=== PATIENT | female | born 1975 | race Caucasian/White ===

== ENCOUNTER 2017-10-10 11:38 | Observation (INO) | payer BC ==
[2017-10-10] MEDS ORDERED: Acetaminophen 325 MG Tab PO ONE (12:54)
[2017-10-10] MEDS ORDERED: Ondansetron 4 MG/2 ML SDV IVPUSH ONE (12:54)
[2017-10-10] MEDS ORDERED: methylPREDNISolone Sodium Succinate 125 MG/2 ML SDV IVPUSH ONE (13:02)
[2017-10-10] MEDS ORDERED: Sodium Chloride 0.9% 10 ML Syringe FLUSH PRN (13:13)
--- NOTE | 2017-10-10 13:13 | EDM.PDOC ---
ED HPI GENERAL MEDICAL PROBLEM - General Chief Complaint: Diabetic Complaint Stated Complaint: DIABETIC/VOMTING Time Seen by Provider: 10/10/17 12:35 Source of Information: Reports: Patient History Limitations: Reports: No Limitations - History of Present Illness INITIAL COMMENTS - FREE TEXT/NARRATIVE: Patient is a 41 y/o female who presents to the E.D. c/o n/v and diarrhea since midnight. She has vomited multiple times. Unable to keep any fluids down. She has a history of DM II and addisons disease. She has administered dexamethasone 4 mg IM around 0945. Feels she is in a venkat crisis. Was informed to come to the E.D. if she ever gets like this for stress dose steroids and IVF's. Cortef 20 mg qam, cortef 10mg daily, hydrocortisone 0.5 tab by mouth as when necessary, Florinef 0.1 mg by mouth daily, lisinopril 2.5 mg daily, Synthroid 175 g by mouth daily, dexamethasone 4 mg IM when necessary , Lantus 30 units subcutaneous daily, the trulicity 1.5 mg IM weekly. She has not checked her blood sugar this a.m. Has fever of 100.4. Mild body aches, headache, and abdominal discomfort with vomiting. Denies stiff neck, vision changes, chestpain, sob, dysuria, rash, or any additional complaints. Headache Pain Score (Numeric/FACES): 3 - Related Data Allergies Allergy/AdvReac Type Severity Reaction Status Date / Time No Known Allergies Allergy Verified 10/10/17 18:16 Home Meds: Home Meds Levothyroxine Sodium [Synthroid] 175 mcg PO DAILY 11/18/15 [History] Fludrocortisone [Florinef] 0.1 mg PO DAILY #30 tablet 11/20/15 [Rx] Dexamethasone 4 mg IM ASDIRECTED PRN 10/10/17 [History] Dulaglutide [Trulicity] 1.5 mg IM WEEKLY 10/10/17 [History] Hydrocortisone 0.5 tab PO ASDIRECTED PRN 10/10/17 [History] Hydrocortisone [Cortef] 1 tab PO DAILY 10/10/17 [History] Hydrocortisone [Cortef] 2 tab PO QAM 10/10/17 [History] Insulin Glarg,Human.Rec.Analog [Lantus] 30 units SUBCUT DAILY 10/10/17 [History] Lisinopril 2.5 mg PO DAILY 10/10/17 [History] Past Medical History Endocrine/Metabolic History: Reports: [place]'s Disease, Diabetes, Type II, Hypothyroidism, IDDM - Infectious Disease History Infectious Disease History: Reports: Chicken Pox, Influenza - Past Surgical History GI Surgical History: Reports: Appendectomy, Cholecystectomy Social & Family History - Family History Family Medical History: Noncontributory - Tobacco Use Smoking Status *Q: Former Smoker Years of Tobacco use: 20 Packs/Tins Daily: 1 Used Tobacco, but Quit: Yes Month/Year Tobacco Last Used: 3 years ago - Caffeine Use Caffeine Use: Reports: Coffee, Soda - Recreational Drug Use Recreational Drug Use: No ED ROS GENERAL - Review of Systems Review Of Systems: ROS reveals no pertinent complaints other than HPI. ED EXAM GENERAL NO PERIP PULSE - Physical Exam Exam: See Below Exam Limited By: No Limitations General Appearance: Alert, WD/WN, Moderate Distress Eye Exam: Bilateral Eye: Normal Inspection, PERRL Ears: Hearing Grossly Normal Nose: Normal Inspection Throat/Mouth: Normal Inspection, Normal Oropharynx, Normal Voice, No Airway Compromise Head: Atraumatic, Normocephalic Neck: Normal Inspection, Supple Respiratory/Chest: No Respiratory Distress, Lungs Clear, Normal Breath Sounds, No Accessory Muscle Use, Chest Non-Tender Cardiovascular: Normal Peripheral Pulses, Tachycardia GI/Abdominal: Normal Bowel Sounds, Soft, No Organomegaly, No Distention, Tender (generalized, mild, per patient 2ndto n/v. ) Back Exam: Normal Inspection. No: CVA Tenderness (L), CVA Tenderness (R) Extremities: Normal Inspection, Normal Range of Motion, Non-Tender, No Pedal Edema, Normal Capillary Refill Neurological: Alert, Oriented, CN II-XII Intact, Normal Cognition, No Motor/ Sensory Deficits Psychiatric: Normal Affect, Normal Mood Skin Exam: Warm, Dry, Intact, Normal Color Course - Vital Signs Last Recorded V/S: Last Vital Signs Temp 98.2 F 10/11/17 15:22 Pulse 91 10/11/17 15:22 Resp 16 10/11/17 15:22 BP 123/74 10/11/17 15:22 Pulse Ox 95 10/11/17 15:22 - Orders/Labs/Meds Orders: Medication Orders Acetaminophen (Tylenol) 650 mg PO Q6H PRN PRN Reason: Pain/Fever Albuterol (Proventil Neb Soln) 2.5 mg NEB Q4HRRT PRN PRN Reason: Shortness of Breath Albuterol/Ipratropium (Duoneb 3.0-0.5 Mg/3 Ml) 3 ml NEB QID PRN PRN Reason: sob Dextrose/Water (Dextrose 50% In Water) 50 ml IVPUSH ASDIRECTED PRN PRN Reason: Hypoglycemia Fludrocortisone Acetate (Florinef) 0.1 mg PO DAILY [facility] Hydrocortisone Sodium Succinate (Solu-Cortef) 100 mg IVPUSH Q8H [facility] Last Admin: 10/11/17 20:23 Dose: 100 mg Admin: 10/11/17 12:56 Dose: 100 mg Admin: 10/11/17 04:06 Dose: 100 mg Admin: 10/10/17 20:36 Dose: 100 mg Insulin Aspart (Novolog) 0 unit SUBCUT QIDACANDBED [facility]; Protocol Last Admin: 10/11/17 17:50 Dose: 4 unit Admin: 10/11/17 12:55 Dose: 2 unit Admin: 10/11/17 08:19 Dose: 2 unit Admin: 10/10/17 22:46 Dose: 4 unit Levothyroxine Sodium (Synthroid) 175 mcg PO ACBREAKFAST [facility] Last Admin: 10/11/17 06:35 Dose: 175 mcg Lisinopril (Prinivil) 2.5 mg PO DAILY [facility] Ondansetron HCl (Zofran) 4 mg IVPUSH Q8H PRN PRN Reason: Nausea/Vomiting Pantoprazole Sodium (Protonix Iv) 40 mg IVPUSH Q12H [facility] Last Admin: 10/11/17 20:22 Dose: 40 mg Admin: 10/11/17 08:20 Dose: 40 mg Admin: 10/10/17 20:37 Dose: 40 mg Sodium Chloride (Saline Flush) 10 ml FLUSH ASDIRECTED PRN PRN Reason: Keep Vein Open Last Admin: 10/10/17 13:25 Dose: 10 ml Labs: Laboratory Tests 10/10/17 10/10/17 10/10/17 Range/Units 13:40 13:40 13:40 WBC 9.44 (3.98-10.04) K/mm3 RBC 5.17 (3.98-5.22) M/mm3 Hgb 14.4 (11.2-15.7) gm/L Hct 42.1 (34.1-44.9) % MCV 81.4 (79.4-94.8) fl MCH 27.9 (25.6-32.2) pg MCHC 34.2 (32.2-35.5) g/dl RDW Std Deviation 38.2 (36.4-46.3) fL Plt Count 242 (182-369) K/mm3 MPV 10.7 (9.4-12.3) fl Neutrophils % (Manual) 80 H (40-60) % Band Neutrophils % 1 (0-10) % Lymphocytes % (Manual) 18 L (20-40) % Atypical Lymphs % 0 % Monocytes % (Manual) 1 L (2-10) % Eosinophils % (Manual) 0 L (0.7-5.8) % Basophils % (Manual) 0 L (0.1-1.2) Platelet Estimate Adequate RBC Morph Comment Normal Sodium 141 (136-145) mEq/L Potassium 3.7 (3.5-5.1) mEq/L Chloride 105 (98-107) mEq/L Carbon Dioxide 25 (21-32) mEq/L Anion Gap 14.7 (5-15) BUN 13 (7-18) mg/dL Creatinine 1.0 (0.55-1.02) mg/dL Est Cr Clr Drug Dosing 65.22 mL/min Estimated GFR (MDRD) > 60 (>60) mL/min BUN/Creatinine Ratio 13.0 L (14-18) Glucose 173 H (74-106) mg/dL Calcium 8.1 L (8.5-10.1) mg/dL Total Bilirubin 0.7 (0.2-1.0) mg/dL AST 23 (15-37) U/L ALT 19 (14-59) U/L Alkaline Phosphatase 143 H (46-116) U/L Total Protein 6.7 (6.4-8.2) g/dl Albumin 3.2 L (3.4-5.0) g/dl Globulin 3.5 gm/dL Albumin/Globulin Ratio 0.9 L (1-2) Mycoplasma pneumon IgM Negative (NEGATIVE) Meds: Medications Generic Name Dose Route Start Last Admin Trade Name Freq PRN Reason Stop Dose Admin Acetaminophen 650 mg 10/10/17 19:42 Tylenol PO Q6H PRN Pain/Fever Albuterol 2.5 mg 10/11/17 07:47 Proventil Neb Soln NEB Q4HRRT PRN Shortness of Breath Albuterol/Ipratropium 3 ml 10/11/17 07:46 Duoneb 3.0-0.5 Mg/3 Ml NEB QID PRN sob Dextrose/Water 50 ml 10/10/17 19:35 Dextrose 50% In Water IVPUSH ASDIRECTED PRN Hypoglycemia Fludrocortisone Acetate 0.1 mg 10/12/17 09:00 Florinef PO DAILY [facility] Hydrocortisone Sodium Succinate 100 mg 10/10/17 20:00 10/11/17 20:23 Solu-Cortef IVPUSH 100 mg Q8H [facility] Administration Insulin Aspart 0 unit 10/10/17 22:00 10/11/17 17:50 Novolog SUBCUT 4 unit QIDACANDBED [facility] Administration Protocol Levothyroxine Sodium 175 mcg 10/11/17 06:00 10/11/17 06:35 Synthroid PO 175 mcg ACBREAKFAST [facility] Administration Lisinopril 2.5 mg 10/12/17 09:00 Prinivil PO DAILY [facility] Ondansetron HCl 4 mg 10/10/17 19:39 Zofran IVPUSH Q8H PRN Nausea/Vomiting Pantoprazole Sodium 40 mg 10/10/17 20:00 10/11/17 20:22 Protonix Iv IVPUSH 40 mg Q12H [facility] Administration Sodium Chloride 10 ml 10/10/17 13:13 10/10/17 13:25 Saline Flush FLUSH 10 ml ASDIRECTED PRN Administration Keep Vein Open Discontinued Medications Generic Name Dose Route Start Last Admin Trade Name Freq PRN Reason Stop Dose Admin Acetaminophen 975 mg 10/10/17 12:54 10/10/17 14:04 Tylenol PO 10/10/17 12:55 975 mg NOW ONE Administration Azithromycin 500 mg 10/11/17 07:45 Zithromax IV Q24H [facility] Sodium Chloride 2,000 mls @ 999 mls/hr 10/10/17 12:50 10/10/17 14:48 Normal Saline IV 10/10/17 14:50 999 mls/hr ONETIME ONE Administration Sodium Chloride 1,000 mls @ 999 mls/hr 10/10/17 20:00 10/10/17 22:44 Normal Saline IV 10/11/17 21:01 999 mls/hr ASDIRECTED [facility] Administration Sodium Chloride 1,000 mls @ 100 mls/hr 10/10/17 22:00 10/11/17 00:03 Normal Saline IV 100 mls/hr TITRATE [facility] Administration Azithromycin 500 mg/ Sodium 250 mls @ 250 mls/hr 10/11/17 08:00 10/11/17 09: 05 Chloride IV 250 mls/hr Q24H [facility] Administration Magnesium Sulfate 4 gm/ Premix 100 mls @ 300 mls/hr 10/11/17 07:46 10/11/17 08:36 IV 10/11/17 07:47 Not Given ONETIME ONE Magnesium Sulfate 2 gm/ Premix 50 mls @ 50 mls/hr 10/11/17 08:00 10/11/17 10: 10 IV 10/11/17 09:59 50 mls/hr Q1H [facility] Administration Methylprednisolone Sodium Succinate 90 mg 10/10/17 13:02 10/10/17 13:31 Solu-Medrol IVPUSH 10/10/17 13:03 90 mg ONETIME ONE Administration Ondansetron HCl 4 mg 10/10/17 12:54 10/10/17 13:28 Zofran IVPUSH 10/10/17 12:55 4 mg ONETIME ONE Administration Pneumococcal Polyvalent Vaccine 0.5 ml 10/10/17 18:35 Pneumovax 23 IM 10/10/17 18:36 .ONCE ONE - Re-Assessments/Exams Free Text/Narrative Re-Assessment/Exam: IV will be established with normal saline 2000 mls/hr, zofran 4mg IVP,tylenol 975mg PO, and solumedrol 90 mg IVP. Initial labs and studies will include: CBC, CMP, CRP, UA,Influenza, WBC Stool, blood cultures, and 2 view abdomen. X-ray of the abdomen 2 view did not reveal any acute findings. Surgical clips the right upper quadrant from previous cystectomy. Rotations pending. Labs reviewed. 10/10/17 1540 Discussed the patient with Dr. Cha. Request I ordered a mycoplasma and rapid strep screen as well. Patient require MedSurg with telemetry. MCG to be completed. 10/10/17 15:50 Dr. Cha evaluated the patient in the E.D. requested CXR. Temp recheck: 98.2 F Patient meets observation status for admission. Chest x-ray impression: Small nodule within the right mid lung. This is a critically present on the 2016 exam. Patient is a smoker recommend noncontrast chest CT to further evaluate. Patient is not a smoker this can be a normal. Nothing acute is otherwise seen on portable chest x-ray. Patient was admitted. Results of the x-ray will be sent to the floor. Departure - Departure Time of Disposition: 15:30 Disposition: Refer to Observation Condition: Fair Clinical Impression: Addisons disease, Gastroenteritis - Discharge Information
[2017-10-10] MEDS: Sodium Chloride 0.9% 2,000 ML IV ONE ×2 (13:27→14:48)
--- NOTE | 2017-10-10 18:29 | PCM.HP ---
H&P History of Present Illness - General Date of Service: 10/10/17 Admit Problem/Dx: Admission Diagnosis/Problem Admission Diagnosis/Problem Gastroenteritis Source of Information: Patient, Provider History Limitations: Reports: No Limitations - History of Present Illness Initial Comments - Free Text/Narative: 41 year old female presents with malaise, dehydration, and abdominal pain. She is nauseated and believes that she may have had an elevated temperature. She denies any sick contacts. There is no recent travel. She had a headache when presenting to the ED that has resolved. The patient denies constipation but has had frequent BMs. There has been no change on habits. Onset of Symptoms: Reports: Unknown/Unsure Symptom Onset Date: 10/09/17 Duration of Symptoms: Reports: Hour(s):, Getting Worse Location: Reports: Abdomen, Generalized Severity: Moderate Improves with: Reports: Medication Worsens with: Reports: None Associated Symptoms: Reports: Fever/Chills, Loss of Appetite, Malaise, Nausea/ Vomiting, Weakness Headache Pain Score (Numeric/FACES): 3 - Related Data Allergies/Adverse Reactions: Allergies Allergy/AdvReac Type Severity Reaction Status Date / Time No Known Allergies Allergy Verified 10/10/17 18:16 Home Medications: Home Meds Levothyroxine Sodium [Synthroid] 175 mcg PO DAILY 11/18/15 [History] Fludrocortisone [Florinef] 0.1 mg PO DAILY #30 tablet 11/20/15 [Rx] Dexamethasone 4 mg IM ASDIRECTED PRN 10/10/17 [History] Dulaglutide [Trulicity] 1.5 mg IM WEEKLY 10/10/17 [History] Hydrocortisone 0.5 tab PO ASDIRECTED PRN 10/10/17 [History] Hydrocortisone [Cortef] 1 tab PO DAILY 10/10/17 [History] Hydrocortisone [Cortef] 2 tab PO QAM 10/10/17 [History] Insulin Glarg,Human.Rec.Analog [Lantus] 30 units SUBCUT DAILY 10/10/17 [History] Lisinopril 2.5 mg PO DAILY 10/10/17 [History] Past Medical History Endocrine/Metabolic History: Reports: [place]'s Disease, Diabetes, Type II, Hypothyroidism, IDDM - Infectious Disease History Infectious Disease History: Reports: Chicken Pox, Influenza - Past Surgical History GI Surgical History: Reports: Appendectomy, Cholecystectomy Social & Family History - Family History Family Medical History: Noncontributory - Tobacco Use Smoking Status *Q: Former Smoker Years of Tobacco use: 20 Packs/Tins Daily: 1 Used Tobacco, but Quit: Yes Month/Year Tobacco Last Used: 3 years ago - Caffeine Use Caffeine Use: Reports: Coffee, Soda - Recreational Drug Use Recreational Drug Use: No H&P Review of Systems - Review of Systems: Review Of Systems: See Below General: Reports: Fever, Malaise, Weakness HEENT: Reports: No Symptoms Pulmonary: Reports: No Symptoms Cardiovascular: Reports: Lightheadedness Gastrointestinal: Reports: Decreased Appetite Genitourinary: Reports: No Symptoms Musculoskeletal: Reports: No Symptoms Skin: Reports: No Symptoms Psychiatric: Reports: No Symptoms Neurological: Reports: No Symptoms Hematologic/Lymphatic: Reports: No Symptoms Immunologic: Reports: No Symptoms Exam - Exam Exam: See Below - Vital Signs Vital Signs: Last Vital Signs Temp 36.8 C 10/10/17 18:15 Pulse 91 10/10/17 18:15 Resp 20 10/10/17 18:15 BP 141/71 H 10/10/17 18:15 Pulse Ox 98 10/10/17 18:15 Weight: 96.615 kg - Exam Quality Assessment: Supplemental Oxygen General: Alert, Oriented, Cooperative, Mild Distress HEENT: Conjunctiva Clear, Nares Patent, Normal Nasal Septum, Pupils Equal, Pupils Reactive, PERRLA Neck: Trachea Midline Lungs: Normal Respiratory Effort Cardiovascular: Regular Rate, Regular Rhythm GI/Abdominal Exam: Normal Bowel Sounds, Soft, Non-Tender, No Organomegaly, No Distention (Female) Exam: Deferred Rectal (Female) Exam: Deferred Back Exam: Normal Inspection Extremities: Normal Inspection, Normal Range of Motion, Non-Tender Skin: Warm Neurological: Cranial Nerves Intact Neuro Extensive - Mental Status: Alert, Oriented x3, Normal Mood/Affect, Normal Cognition, Memory Intact Neuro Extensive - Motor, Sensory, Reflexes: CN II-XII Intact Psychiatric: Alert, Normal Affect, Normal Mood - Patient Data Lab Results Last 24 hrs: Laboratory Results - last 24 hr 10/10/17 10/10/17 10/10/17 Range/Units 13:40 13:40 13:40 WBC 9.44 (3.98-10.04) K/mm3 RBC 5.17 (3.98-5.22) M/mm3 Hgb 14.4 (11.2-15.7) gm/L Hct 42.1 (34.1-44.9) % MCV 81.4 (79.4-94.8) fl MCH 27.9 (25.6-32.2) pg MCHC 34.2 (32.2-35.5) g/dl RDW Std Deviation 38.2 (36.4-46.3) fL Plt Count 242 (182-369) K/mm3 MPV 10.7 (9.4-12.3) fl Neutrophils % (Manual) 80 H (40-60) % Band Neutrophils % 1 (0-10) % Lymphocytes % (Manual) 18 L (20-40) % Atypical Lymphs % 0 % Monocytes % (Manual) 1 L (2-10) % Eosinophils % (Manual) 0 L (0.7-5.8) % Basophils % (Manual) 0 L (0.1-1.2) Platelet Estimate Adequate RBC Morph Comment Normal Sodium 141 (136-145) mEq/L Potassium 3.7 (3.5-5.1) mEq/L Chloride 105 (98-107) mEq/L Carbon Dioxide 25 (21-32) mEq/L Anion Gap 14.7 (5-15) BUN 13 (7-18) mg/dL Creatinine 1.0 (0.55-1.02) mg/dL Est Cr Clr Drug Dosing 65.22 mL/min Estimated GFR (MDRD) > 60 (>60) mL/min BUN/Creatinine Ratio 13.0 L (14-18) Glucose 173 H (74-106) mg/dL Calcium 8.1 L (8.5-10.1) mg/dL Total Bilirubin 0.7 (0.2-1.0) mg/dL AST 23 (15-37) U/L ALT 19 (14-59) U/L Alkaline Phosphatase 143 H (46-116) U/L Total Protein 6.7 (6.4-8.2) g/dl Albumin 3.2 L (3.4-5.0) g/dl Globulin 3.5 gm/dL Albumin/Globulin Ratio 0.9 L (1-2) Mycoplasma pneumon IgM Negative (NEGATIVE) Result Diagrams: 10/10/17 13:40 10/10/17 13:40 Richard Results Last 24 hrs: Microbiology 10/10/17 16:02 Group A Streptococcus Rapid Screen - Final Throat NEGATIVE STREP A SCREEN 10/10/17 15:05 Influenza Type A Antigen Screen - Final Nasal Aspirate, Unspecified NEGATIVE INFLUENZA A VIRUS AG Influenza Type B Antigen Screen - Final NEGATIVE INFLUENZA B VIRUS AG - Problem List (1) Hypothyroid SNOMED Code(s): 40745155 ICD Code: E03.9 - HYPOTHYROIDISM, UNSPECIFIED Status: Acute Current Visit : Yes (2) Addisons disease SNOMED Code(s): 529950753 ICD Code: E27.1 - PRIMARY ADRENOCORTICAL INSUFFICIENCY Status: Chronic Priority: Low Current Visit: No (3) Insulin dependent diabetes mellitus SNOMED Code(s): 28939046 ICD Code: E11.9 - TYPE 2 DIABETES MELLITUS WITHOUT COMPLICATIONS; Z79.4 - ALF (CURRENT) USE OF INSULIN Status: Chronic Priority: Low Current Visit: No Problem List Initiated/Reviewed/Updated: Yes Orders Last 24hrs: Active Orders 24 hr Category Date Time Status Admission Status [Patient Status] [ADT] Routine ADT 10/10/17 17:11 Active Peripheral IV Care [RC] . DIRECTED Care 10/10/17 13:13 Active Clear Liquid Diet [DIET] Diet 10/11/17 Breakfast Active Abdomen 2V AP Flat Upright [CR] Stat Exams 10/10/17 13:02 Taken CXR [Chest 1V Frontal] [CR] Stat Exams 10/10/17 15:56 Taken CULTURE BLOOD [BC] Stat Lab 10/10/17 13:40 Received CULTURE BLOOD [BC] Stat Lab 10/10/17 13:50 Received CULTURE STREP A CONFIRMATION [RM] Stat Lab 10/10/17 16:02 Results INFLUENZA A+B AG SCREEN [RM] Stat Lab 10/10/17 15:05 Ordered STREP SCRN A RAPID W CULT CONF [RM] Stat Lab 10/10/17 16:02 Ordered UA W/MICROSCOPIC [URIN] Stat Lab 10/10/17 12:54 Ordered WBC, STOOL [OP] Stat Lab 10/10/17 12:54 Ordered Sodium Chloride 0.9% [Saline Flush] Med 10/10/17 13:13 Active 10 ml FLUSH ASDIRECTED PRN Blood Culture x2 Reflex Set [OM.PC] Stat Oth 10/10/17 13:06 Ordered Peripheral IV Insertion Adult [OM.PC] Routine Oth 10/10/17 13:13 Ordered Medication Orders Sodium Chloride (Saline Flush) 10 ml FLUSH ASDIRECTED PRN PRN Reason: Keep Vein Open Last Admin: 10/10/17 13:25 Dose: 10 ml Assessment/Plan Comment:: Impression: Query gastroenteritis Dehydration Ryan's Hypothyroidism DM Type 2 Plan: Hydration IV steroids Home meds Clear liquids, advance a s tolerated Anti emetic Infectious work up Daily labs DVT/GI prophylaxis
--- NOTE | 2017-10-10 18:34 | CR ---
Abdomen: Supine and upright views of the abdomen were obtained. Comparison: Prior abdominal x-ray of 12/20/09. Bowel gas pattern is felt to be within normal limits. Surgical clips are seen from prior cholecystectomy. No free air is seen. No abnormal calcifications or discrete soft tissue abnormality is seen. Impression: 1. Nonspecific two-view abdominal x-ray. Diagnostic code #2
--- NOTE | 2017-10-10 18:34 | CR ---
Chest: Portable view of the chest was obtained. Comparison: Previous chest x-rays of 09/23/13 and 11/18/15. Heart size and mediastinum are within normal limits for portable technique. Lungs are clear without acute parenchymal densities. Questionable small nodule within the right mid lung is seen measuring about 3 mm. Lungs otherwise are clear. Bony structures are grossly intact. Impression: 1. Small nodule within the right midlung. This is equivocally present on the 2016 exam. If patient is a smoker, recommend noncontrast chest CT to further evaluate. If patient is not a smoker, this can be ignored. 2. Nothing acute is otherwise seen on portable chest x-ray. Diagnostic code #9
[2017-10-10] MEDS ORDERED: Pneumococcal Polyvalent-23 Vaccine 0.5 ML SDV IM ONE (18:35)
[2017-10-10] MEDS ORDERED: 50% Dextrose in Water 50 ML Syringe IVPUSH PRN (19:35)
[2017-10-10] MEDS ORDERED: Ondansetron 4 MG/2 ML SDV IVPUSH PRN (19:39)
[2017-10-10] MEDS ORDERED: Acetaminophen 325 MG Tab PO PRN (19:42)
[2017-10-10] MEDS: Hydrocortisone Sodium Succinate 100 MG/2 ML SDV IVPUSH SCH (20:36)
[2017-10-10] MEDS: Pantoprazole 40 MG Vial IVPUSH SCH (20:37)
[2017-10-10] MEDS: Sodium Chloride 0.9% 1,000 ML IV SCH ×2 (20:58→22:44)
[2017-10-10] MEDS ORDERED: Sodium Chloride 0.9% 1,000 ML IV SCH (22:00)
[2017-10-10] MEDS: Insulin Aspart 100 Units/ML 3 ML Pen SUBCUT SCH (22:46)
[2017-10-11] MEDS: Hydrocortisone Sodium Succinate 100 MG/2 ML SDV IVPUSH SCH ×3 (04:06→20:23)
[2017-10-11] MEDS: Levothyroxine 50 MCG Tab PO SCH (06:35)
[2017-10-11] MEDS ORDERED: Azithromycin 500 MG AdvVial IV SCH (07:45)
[2017-10-11] MEDS ORDERED: Albuterol/Ipratropium 3.0-0.5 MG/3 ML Neb Soln NEB PRN (07:46)
[2017-10-11] MEDS ORDERED: Magnesium Sulfate/Water 4 GM in Premix Bag 1 BAG IV ONE (07:46)
[2017-10-11] MEDS ORDERED: Albuterol 0.083% 2.5 MG/3 ML Neb Soln NEB PRN (07:47)
[2017-10-11] MEDS ORDERED: Azithromycin 500 MG in Sodium Chloride 0.9% 250 ML IV SCH (08:00)
[2017-10-11] MEDS: Magnesium Sulfate/Water 2 GM in Premix Bag 1 BAG IV SCH ×2 (08:19→10:10)
[2017-10-11] MEDS: Insulin Aspart 100 Units/ML 3 ML Pen SUBCUT SCH ×4 (08:19→22:17)
[2017-10-11] MEDS: Pantoprazole 40 MG Vial IVPUSH SCH ×2 (08:20→20:22)
--- NOTE | 2017-10-11 08:29 | PCM.PN ---
- General Info Date of Service: 10/11/17 Admission Dx/Problem (Free Text): Admission Diagnosis/Problem Admission Diagnosis/Problem Gastroenteritis Subjective Update: Follow Up Functional Status: Reports: Pain Controlled, Tolerating Diet, Ambulating, Urinating. Denies: New Symptoms - Review of Systems General: Reports: Fatigue. Denies: Fever, Weakness, Malaise, Chills HEENT: Reports: No Symptoms Pulmonary: Denies: Shortness of Breath Cardiovascular: Denies: Chest Pain Gastrointestinal: Reports: Flatus. Denies: Abdominal Pain, Constipation, Decreased Appetite, Diarrhea, Nausea, Vomiting Genitourinary: Reports: No Symptoms Musculoskeletal: Reports: No Symptoms Skin: Denies: Cyanosis, Jaundice, Mottled, Pallor, Diaphoresis, Rash Neurological: Denies: Confusion, Dizziness, Headache, Difficulty Walking, Weakness, Gait Disturbance Psychiatric: Denies: No Symptoms, Depression, Anxiety, Hallucinations Systems Review Comment:: No overnight issues. She feels better this morning. She has new no complaints. Her Mg level is 1.5 and TSH level is 0.078 this morning. She is tolerating clear liquid diet. - Patient Data Vitals - Most Recent: Last Vital Signs Temp 36.4 C 10/10/17 21:12 Pulse 76 10/10/17 21:12 Resp 16 10/10/17 21:12 BP 122/49 L 10/10/17 21:12 Pulse Ox 98 10/10/17 21:12 Weight - Most Recent: 103.238 kg I&O - Last 24 Hours: Intake & Output 10/10/17 10/11/17 10/11/17 22:59 06:59 14:59 Intake Total 360 2804 Output Total 700 Balance 360 2104 Lab Results Last 24 Hours: Laboratory Results - last 24 hr 10/10/17 10/10/17 10/10/17 Range/Units 13:40 13:40 13:40 WBC 9.44 (3.98-10.04) K/mm3 RBC 5.17 (3.98-5.22) M/mm3 Hgb 14.4 (11.2-15.7) gm/L Hct 42.1 (34.1-44.9) % MCV 81.4 (79.4-94.8) fl MCH 27.9 (25.6-32.2) pg MCHC 34.2 (32.2-35.5) g/dl RDW Std Deviation 38.2 (36.4-46.3) fL Plt Count 242 (182-369) K/mm3 MPV 10.7 (9.4-12.3) fl Neut % (Auto) (34.0-71.1) % Lymph % (Auto) (19.3-51.7) % Cooper % (Auto) (4.7-12.5) % Eos % (Auto) (0.7-5.8) Baso % (Auto) (0.1-1.2) % Neut # (Auto) (1.56-6.13) K/mm3 Lymph # (Auto) (1.18-3.74) K/mm3 Cooper # (Auto) (0.24-0.36) K/mm3 Eos # (Auto) (0.04-0.36) K/mm3 Baso # (Auto) (0.01-0.08) K/mm3 Neutrophils % (Manual) 80 H (40-60) % Band Neutrophils % 1 (0-10) % Lymphocytes % (Manual) 18 L (20-40) % Atypical Lymphs % 0 % Monocytes % (Manual) 1 L (2-10) % Eosinophils % (Manual) 0 L (0.7-5.8) % Basophils % (Manual) 0 L (0.1-1.2) Manual Slide Review Platelet Estimate Adequate RBC Morph Comment Normal Sodium 141 (136-145) mEq/L Potassium 3.7 (3.5-5.1) mEq/L Chloride 105 (98-107) mEq/L Carbon Dioxide 25 (21-32) mEq/L Anion Gap 14.7 (5-15) BUN 13 (7-18) mg/dL Creatinine 1.0 (0.55-1.02) mg/dL Est Cr Clr Drug Dosing 65.22 mL/min Estimated GFR (MDRD) > 60 (>60) mL/min BUN/Creatinine Ratio 13.0 L (14-18) Glucose 173 H (74-106) mg/dL POC Glucose (70-105) mg/dL Hemoglobin A1c (4.50-6.20) % Lactic Acid (0.4-2.0) mmol/L Calcium 8.1 L (8.5-10.1) mg/dL Magnesium (1.8-2.4) mg/dl Total Bilirubin 0.7 (0.2-1.0) mg/dL AST 23 (15-37) U/L ALT 19 (14-59) U/L Alkaline Phosphatase 143 H (46-116) U/L C-Reactive Protein (<1.0) mg/dL Total Protein 6.7 (6.4-8.2) g/dl Albumin 3.2 L (3.4-5.0) g/dl Globulin 3.5 gm/dL Albumin/Globulin Ratio 0.9 L (1-2) TSH 3rd Generation (0.358-3.74) uIU/mL Urine Color (Yellow) Urine Appearance (Clear) Urine pH (5.0-8.0) Ur Specific [place] (1.005-1.030) Urine Protein (Negative) Urine Glucose (UA) (Negative) Urine Ketones (Negative) Urine Occult Blood (Negative) Urine Nitrite (Negative) Urine Bilirubin (Negative) Urine Urobilinogen (0.2-1.0) Ur Leukocyte Esterase (Negative) Urine RBC (0-5) /hpf Urine WBC (0-5) /hpf Ur Epithelial Cells (0-5) /hpf Urine Bacteria (FEW) /hpf Urine Mucus (FEW) /hpf Mycoplasma pneumon IgM Negative (NEGATIVE) 10/10/17 10/10/17 10/11/17 Range/Units 20:51 21:00 06:25 WBC (3.98-10.04) K/mm3 RBC (3.98-5.22) M/mm3 Hgb (11.2-15.7) gm/L Hct (34.1-44.9) % MCV (79.4-94.8) fl MCH (25.6-32.2) pg MCHC (32.2-35.5) g/dl RDW Std Deviation (36.4-46.3) fL Plt Count (182-369) K/mm3 MPV (9.4-12.3) fl Neut % (Auto) (34.0-71.1) % Lymph % (Auto) (19.3-51.7) % Cooper % (Auto) (4.7-12.5) % Eos % (Auto) (0.7-5.8) Baso % (Auto) (0.1-1.2) % Neut # (Auto) (1.56-6.13) K/mm3 Lymph # (Auto) (1.18-3.74) K/mm3 Cooper # (Auto) (0.24-0.36) K/mm3 Eos # (Auto) (0.04-0.36) K/mm3 Baso # (Auto) (0.01-0.08) K/mm3 Neutrophils % (Manual) (40-60) % Band Neutrophils % (0-10) % Lymphocytes % (Manual) (20-40) % Atypical Lymphs % % Monocytes % (Manual) (2-10) % Eosinophils % (Manual) (0.7-5.8) % Basophils % (Manual) (0.1-1.2) Manual Slide Review Platelet Estimate RBC Morph Comment Sodium 137 (136-145) mEq/L Potassium 4.0 (3.5-5.1) mEq/L Chloride 105 (98-107) mEq/L Carbon Dioxide 22 (21-32) mEq/L Anion Gap 14.0 (5-15) BUN 9 (7-18) mg/dL Creatinine 0.7 (0.55-1.02) mg/dL Est Cr Clr Drug Dosing 93.17 mL/min Estimated GFR (MDRD) > 60 (>60) mL/min BUN/Creatinine Ratio 12.9 L (14-18) Glucose 231 H (74-106) mg/dL POC Glucose 325 H (70-105) mg/dL Hemoglobin A1c (4.50-6.20) % Lactic Acid (0.4-2.0) mmol/L Calcium 7.4 L (8.5-10.1) mg/dL Magnesium 1.5 L (1.8-2.4) mg/dl Total Bilirubin (0.2-1.0) mg/dL AST (15-37) U/L ALT (14-59) U/L Alkaline Phosphatase (46-116) U/L C-Reactive Protein 7.9 H* (<1.0) mg/dL Total Protein (6.4-8.2) g/dl Albumin (3.4-5.0) g/dl Globulin gm/dL Albumin/Globulin Ratio (1-2) TSH 3rd Generation 0.078 L (0.358-3.74) uIU/mL Urine Color Dark yellow (Yellow) Urine Appearance Clear (Clear) Urine pH 7.0 (5.0-8.0) Ur Specific [place] 1.020 (1.005-1.030) Urine Protein 1+ H (Negative) Urine Glucose (UA) 2+ H (Negative) Urine Ketones 3+ H (Negative) Urine Occult Blood 3+ H (Negative) Urine Nitrite Negative (Negative) Urine Bilirubin 1+ H (Negative) Urine Urobilinogen 2.0 H (0.2-1.0) Ur Leukocyte Esterase Trace H (Negative) Urine RBC Too numerous to cnt H (0-5) /hpf Urine WBC 5-10 H (0-5) /hpf Ur Epithelial Cells 5-10 H (0-5) /hpf Urine Bacteria Moderate H (FEW) /hpf Urine Mucus Many H (FEW) /hpf Mycoplasma pneumon IgM Positive H (NEGATIVE) 10/11/17 10/11/17 10/11/17 Range/Units 06:25 06:25 06:25 WBC 9.59 (3.98-10.04) K/mm3 RBC 4.71 (3.98-5.22) M/mm3 Hgb 12.8 (11.2-15.7) gm/L Hct 38.4 (34.1-44.9) % MCV 81.5 (79.4-94.8) fl MCH 27.2 (25.6-32.2) pg MCHC 33.3 (32.2-35.5) g/dl RDW Std Deviation 36.6 (36.4-46.3) fL Plt Count 215 (182-369) K/mm3 MPV 10.8 (9.4-12.3) fl Neut % (Auto) 85.6 H (34.0-71.1) % Lymph % (Auto) 10.4 L (19.3-51.7) % Cooper % (Auto) 3.9 L (4.7-12.5) % Eos % (Auto) 0 L (0.7-5.8) Baso % (Auto) 0.0 L (0.1-1.2) % Neut # (Auto) 8.21 H (1.56-6.13) K/mm3 Lymph # (Auto) 1.00 L (1.18-3.74) K/mm3 [place] # (Auto) 0.37 H (0.24-0.36) K/mm3 Eos # (Auto) 0.00 L (0.04-0.36) K/mm3 Baso # (Auto) 0.00 L (0.01-0.08) K/mm3 Neutrophils % (Manual) (40-60) % Band Neutrophils % (0-10) % Lymphocytes % (Manual) (20-40) % Atypical Lymphs % % Monocytes % (Manual) (2-10) % Eosinophils % (Manual) (0.7-5.8) % Basophils % (Manual) (0.1-1.2) Manual Slide Review Abnormal smear Platelet Estimate RBC Morph Comment Sodium (136-145) mEq/L Potassium (3.5-5.1) mEq/L Chloride (98-107) mEq/L Carbon Dioxide (21-32) mEq/L Anion Gap (5-15) BUN (7-18) mg/dL Creatinine (0.55-1.02) mg/dL Est Cr Clr Drug Dosing mL/min Estimated GFR (MDRD) (>60) mL/min BUN/Creatinine Ratio (14-18) Glucose (74-106) mg/dL POC Glucose (70-105) mg/dL Hemoglobin A1c 6.80 H (4.50-6.20) % Lactic Acid 0.9 (0.4-2.0) mmol/L Calcium (8.5-10.1) mg/dL Magnesium (1.8-2.4) mg/dl Total Bilirubin (0.2-1.0) mg/dL AST (15-37) U/L ALT (14-59) U/L Alkaline Phosphatase (46-116) U/L C-Reactive Protein (<1.0) mg/dL Total Protein (6.4-8.2) g/dl Albumin (3.4-5.0) g/dl Globulin gm/dL Albumin/Globulin Ratio (1-2) TSH 3rd Generation (0.358-3.74) uIU/mL Urine Color (Yellow) Urine Appearance (Clear) Urine pH (5.0-8.0) Ur Specific [place] (1.005-1.030) Urine Protein (Negative) Urine Glucose (UA) (Negative) Urine Ketones (Negative) Urine Occult Blood (Negative) Urine Nitrite (Negative) Urine Bilirubin (Negative) Urine Urobilinogen (0.2-1.0) Ur Leukocyte Esterase (Negative) Urine RBC (0-5) /hpf Urine WBC (0-5) /hpf Ur Epithelial Cells (0-5) /hpf Urine Bacteria (FEW) /hpf Urine Mucus (FEW) /hpf Mycoplasma pneumon IgM (NEGATIVE) 10/11/17 Range/Units 06:43 WBC (3.98-10.04) K/mm3 RBC (3.98-5.22) M/mm3 Hgb (11.2-15.7) gm/L Hct (34.1-44.9) % MCV (79.4-94.8) fl MCH (25.6-32.2) pg MCHC (32.2-35.5) g/dl RDW Std Deviation (36.4-46.3) fL Plt Count (182-369) K/mm3 MPV (9.4-12.3) fl Neut % (Auto) (34.0-71.1) % Lymph % (Auto) (19.3-51.7) % Cooper % (Auto) (4.7-12.5) % Eos % (Auto) (0.7-5.8) Baso % (Auto) (0.1-1.2) % Neut # (Auto) (1.56-6.13) K/mm3 Lymph # (Auto) (1.18-3.74) K/mm3 Cooper # (Auto) (0.24-0.36) K/mm3 Eos # (Auto) (0.04-0.36) K/mm3 Baso # (Auto) (0.01-0.08) K/mm3 Neutrophils % (Manual) (40-60) % Band Neutrophils % (0-10) % Lymphocytes % (Manual) (20-40) % Atypical Lymphs % % Monocytes % (Manual) (2-10) % Eosinophils % (Manual) (0.7-5.8) % Basophils % (Manual) (0.1-1.2) Manual Slide Review Platelet Estimate RBC Morph Comment Sodium (136-145) mEq/L Potassium (3.5-5.1) mEq/L Chloride (98-107) mEq/L Carbon Dioxide (21-32) mEq/L Anion Gap (5-15) BUN (7-18) mg/dL Creatinine (0.55-1.02) mg/dL Est Cr Clr Drug Dosing mL/min Estimated GFR (MDRD) (>60) mL/min BUN/Creatinine Ratio (14-18) Glucose (74-106) mg/dL POC Glucose 208 H (70-105) mg/dL Hemoglobin A1c (4.50-6.20) % Lactic Acid (0.4-2.0) mmol/L Calcium (8.5-10.1) mg/dL Magnesium (1.8-2.4) mg/dl Total Bilirubin (0.2-1.0) mg/dL AST (15-37) U/L ALT (14-59) U/L Alkaline Phosphatase (46-116) U/L C-Reactive Protein (<1.0) mg/dL Total Protein (6.4-8.2) g/dl Albumin (3.4-5.0) g/dl Globulin gm/dL Albumin/Globulin Ratio (1-2) TSH 3rd Generation (0.358-3.74) uIU/mL Urine Color (Yellow) Urine Appearance (Clear) Urine pH (5.0-8.0) Ur Specific [place] (1.005-1.030) Urine Protein (Negative) Urine Glucose (UA) (Negative) Urine Ketones (Negative) Urine Occult Blood (Negative) Urine Nitrite (Negative) Urine Bilirubin (Negative) Urine Urobilinogen (0.2-1.0) Ur Leukocyte Esterase (Negative) Urine RBC (0-5) /hpf Urine WBC (0-5) /hpf Ur Epithelial Cells (0-5) /hpf Urine Bacteria (FEW) /hpf Urine Mucus (FEW) /hpf Mycoplasma pneumon IgM (NEGATIVE) Richard Results Last 24 Hours: Microbiology 10/10/17 16:02 Group A Streptococcus Rapid Screen - Final Throat NEGATIVE STREP A SCREEN 10/10/17 15:05 Influenza Type A Antigen Screen - Final Nasal Aspirate, Unspecified NEGATIVE INFLUENZA A VIRUS AG Influenza Type B Antigen Screen - Final NEGATIVE INFLUENZA B VIRUS AG Med Orders - Current: Current Medications Acetaminophen (Tylenol) 650 mg PO Q6H PRN PRN Reason: Pain/Fever Albuterol (Proventil Neb Soln) 2.5 mg NEB Q4HRRT PRN PRN Reason: Shortness of Breath Albuterol/Ipratropium (Duoneb 3.0-0.5 Mg/3 Ml) 3 ml NEB QID PRN PRN Reason: sob Dextrose/Water (Dextrose 50% In Water) 50 ml IVPUSH ASDIRECTED PRN PRN Reason: Hypoglycemia Hydrocortisone Sodium Succinate (Solu-Cortef) 100 mg IVPUSH Q8H [facility] [place] Last Admin: 10/11/17 04:06 Dose: 100 mg Sodium Chloride (Normal Saline) 1,000 mls @ 999 mls/hr IV ASDIRECTED KRISH Stop: 10/11/17 21:01 Last Admin: 10/10/17 22:44 Dose: 999 mls/hr Sodium Chloride (Normal Saline) 1,000 mls @ 100 mls/hr IV TITRATE [facility] [place] Last Admin: 10/11/17 00:03 Dose: 100 mls/hr Azithromycin 500 mg/ Sodium (Chloride) 250 mls @ 250 mls/hr IV Q24H [facility] [place] Magnesium Sulfate 2 gm/ Premix 50 mls @ 50 mls/hr IV Q1H [facility] [place] Stop: 10/11/17 09:59 Last Admin: 10/11/17 08:19 Dose: 50 mls/hr Insulin Aspart (Novolog) 0 unit SUBCUT QIDACANDBED [facility] [place]; Protocol Last Admin: 10/11/17 08:19 Dose: 2 unit Levothyroxine Sodium (Synthroid) 175 mcg PO ACBREAKFAST [facility] [place] Last Admin: 10/11/17 06:35 Dose: 175 mcg Ondansetron HCl (Zofran) 4 mg IVPUSH Q8H PRN PRN Reason: Nausea/Vomiting Pantoprazole Sodium (Protonix Iv) 40 mg IVPUSH Q12H [facility] [place] Last Admin: 10/11/17 08:20 Dose: 40 mg Sodium Chloride (Saline Flush) 10 ml FLUSH ASDIRECTED PRN PRN Reason: Keep Vein Open Last Admin: 10/10/17 13:25 Dose: 10 ml Discontinued Medications Acetaminophen (Tylenol) 975 mg PO NOW ONE Stop: 10/10/17 12:55 Last Admin: 10/10/17 14:04 Dose: 975 mg Azithromycin (Zithromax) 500 mg IV Q24H [facility] [place] Sodium Chloride (Normal Saline) 2,000 mls @ 999 mls/hr IV ONETIME ONE Stop: 10/10/17 14:50 Last Admin: 10/10/17 14:48 Dose: 999 mls/hr Magnesium Sulfate 4 gm/ Premix 100 mls @ 300 mls/hr IV ONETIME ONE Stop: 10/11/17 07:47 Methylprednisolone Sodium Succinate (Solu-Medrol) 90 mg IVPUSH ONETIME ONE Stop: 10/10/17 13:03 Last Admin: 10/10/17 13:31 Dose: 90 mg Ondansetron HCl (Zofran) 4 mg IVPUSH ONETIME ONE Stop: 10/10/17 12:55 Last Admin: 10/10/17 13:28 Dose: 4 mg Pneumococcal Polyvalent Vaccine (Pneumovax 23) 0.5 ml IM .ONCE ONE Stop: 10/10/17 18:36 - Exam General: Alert, Oriented, Cooperative, No Acute Distress HEENT: Pupils Equal, Pupils Reactive, EOMI, Mucous Membr. Moist/[place] Neck: Supple, Trachea Midline, No JVD Lungs: Clear to Auscultation, Normal Respiratory Effort Cardiovascular: Regular Rate, Regular Rhythm GI/Abdominal Exam: Normal Bowel Sounds, Soft, Non-Tender, No Organomegaly, No Distention, No Abnormal Bruit (Female) Exam: Deferred Back Exam: Normal Inspection, Full Range of Motion Extremities: Normal Inspection, Normal Range of Motion, Non-Tender, No Pedal Edema, Normal Capillary Refill Peripheral Pulses: 2+: Dorsalis Pedis (L), Dorsalis Pedis (R) Skin: Warm, Dry, Intact Neurological: No New Focal Deficit Psy/Mental Status: Alert, Normal Affect, Normal Mood - Problem List Review Problem List Initiated/Reviewed/Updated: Yes - Plan Plan:: Assessment/Plan: Acute: Gastroenteritis - Suspected Viral +/- Mycoplasma pneumoniae and Medication Induced ( Trulicity side effects) - She is improving - Continue supportive care - Advance diet as tolerated - Avoid greasy/fatty meal Mycoplasma Pneumonia Positive - Afebrile w/o leukocytosis - No respiratory issues or complaints - CXR is clear - UA pos with pending culture; unusual for Mycoplasma to cause it - Unsure if lab error; consider re-testing--> patient agreed - Strep, Influenza screening and Blood Culture- negative - She is currently on Azithromycin 500 mg po daily DM Type 2 - A1c 6.80 (no baseline) - BS in 200-300s - She is on stress dose steroids - Accu-check and ISS - Will resume home diabetic regimen in AM - No need for Diabetic Education - Her diabetes is controlled well despite being on significant steroid regimen Hypomagnsemia - Mg 1.5 - 2/2 inadequate intake - Replete and monitor UA Positive Awaiting Cx - She is asymptomatic Resolved: S/p Dehydration 2/2 GI loss Chronic: [place]'s Disease - 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 (had no hemodynamic instability and/or AMS or Loss of consciousness) - She received Solumedrol in ED as well as Solucortef 100 mg IV Q8H - If remains stable maybe able to switch to her home dose in AM Hypothyroidism - TSH is significantly low; FT4 pending - Will adjust her thyroid dose once FT4 level is back Obesity with BMI of 39 - Counseled on LSM Plan: She is clinically stable Continue current treatment Resume home dose florinef and lisinopril Clear liquids, advance as tolerated Routine daily labs DVT/GI prophylaxis: SCDs and PPIs Encourage to ambulate as tolerated Code status: 1 Possible d/c in a couple of days
[2017-10-12] MEDS: Hydrocortisone Sodium Succinate 100 MG/2 ML SDV IVPUSH SCH ×3 (05:04→20:43)
[2017-10-12] MEDS: Levothyroxine 50 MCG Tab PO SCH (05:50)
--- NOTE | 2017-10-12 08:18 | PCM.PN ---
- General Info Date of Service: 10/12/17 Admission Dx/Problem (Free Text): Admission Diagnosis/Problem Admission Diagnosis/Problem Gastroenteritis Subjective Update: In to see Judi. She is doing well today. She has been up walking around the room and was instructed to walk around the halls more today. She still reports weakness and not feeling herself. Her UA was quite dirty and no culture was obtained. Will repeat UA today as prior one did show trace leukocyte esterase. There was a questionable nodule on her chest x-ray. Chest CT was obtained and no nodule was seen. Noted to be due to overlapping density. She otherwise has no complaints. No concerns from nursing. Likely discharge tomorrow. Functional Status: Reports: Pain Controlled, Tolerating Diet, Ambulating, Urinating. Denies: New Symptoms - Review of Systems General: Reports: Fatigue (improving ), Malaise (improving ), Appetite (greatly decreased ). Denies: Fever, Weakness HEENT: Reports: No Symptoms Pulmonary: Reports: No Symptoms. Denies: Shortness of Breath, Cough, Sputum, Wheezing Cardiovascular: Reports: No Symptoms. Denies: Chest Pain, Palpitations, Dyspnea on Exertion Gastrointestinal: Reports: No Symptoms. Denies: Abdominal Pain, Constipation, Diarrhea, Nausea, Vomiting Genitourinary: Reports: No Symptoms. Denies: Dysuria, Frequency, Burning, Pain , Urgency Musculoskeletal: Reports: No Symptoms Skin: Reports: No Symptoms Neurological: Reports: No Symptoms Psychiatric: Reports: No Symptoms - Patient Data Vitals - Most Recent: Last Vital Signs Temp 97.3 F 10/12/17 05:11 Pulse 69 10/12/17 05:11 Resp 16 10/12/17 05:11 BP 130/89 10/12/17 05:11 Pulse Ox 99 10/12/17 05:11 Weight - Most Recent: 227 lb 3.2 oz I&O - Last 24 Hours: Intake & Output 10/11/17 10/12/17 10/12/17 22:59 06:59 14:59 Intake Total 3470 740 Output Total 1900 1700 Balance 1570 -960 Lab Results Last 24 Hours: Laboratory Results - last 24 hr 10/11/17 10/11/17 10/11/17 Range/Units 12:54 15:05 16:58 WBC (3.98-10.04) K/mm3 RBC (3.98-5.22) M/mm3 Hgb (11.2-15.7) gm/L Hct (34.1-44.9) % MCV (79.4-94.8) fl MCH (25.6-32.2) pg MCHC (32.2-35.5) g/dl RDW Std Deviation (36.4-46.3) fL Plt Count (182-369) K/mm3 MPV (9.4-12.3) fl Neut % (Auto) (34.0-71.1) % Lymph % (Auto) (19.3-51.7) % [place] % (Auto) (4.7-12.5) % Eos % (Auto) (0.7-5.8) Baso % (Auto) (0.1-1.2) % Neut # (Auto) (1.56-6.13) K/mm3 Lymph # (Auto) (1.18-3.74) K/mm3 [place] # (Auto) (0.24-0.36) K/mm3 Eos # (Auto) (0.04-0.36) K/mm3 Baso # (Auto) (0.01-0.08) K/mm3 Sodium (136-145) mEq/L Potassium (3.5-5.1) mEq/L Chloride (98-107) mEq/L Carbon Dioxide (21-32) mEq/L Anion Gap (5-15) BUN (7-18) mg/dL Creatinine (0.55-1.02) mg/dL Est Cr Clr Drug Dosing mL/min Estimated GFR (MDRD) (>60) mL/min BUN/Creatinine Ratio (14-18) Glucose (74-106) mg/dL POC Glucose 248 H 318 H (70-105) mg/dL Lactic Acid (0.4-2.0) mmol/L Calcium (8.5-10.1) mg/dL Magnesium (1.8-2.4) mg/dl C-Reactive Protein (<1.0) mg/dL Mycoplasma pneumon IgM Negative (NEGATIVE) 10/11/17 10/12/17 10/12/17 Range/Units 22:16 05:45 05:45 WBC 11.33 H (3.98-10.04) K/mm3 RBC 4.50 (3.98-5.22) M/mm3 Hgb 12.2 (11.2-15.7) gm/L Hct 37.3 (34.1-44.9) % MCV 82.9 (79.4-94.8) fl MCH 27.1 (25.6-32.2) pg MCHC 32.7 (32.2-35.5) g/dl RDW Std Deviation 38.3 (36.4-46.3) fL Plt Count 242 (182-369) K/mm3 MPV 11.3 (9.4-12.3) fl Neut % (Auto) 69.2 (34.0-71.1) % Lymph % (Auto) 22.3 (19.3-51.7) % [place] % (Auto) 8.3 (4.7-12.5) % Eos % (Auto) 0 L (0.7-5.8) Baso % (Auto) 0.0 L (0.1-1.2) % Neut # (Auto) 7.84 H (1.56-6.13) K/mm3 Lymph # (Auto) 2.53 (1.18-3.74) K/mm3 [place] # (Auto) 0.94 H (0.24-0.36) K/mm3 Eos # (Auto) 0.00 L (0.04-0.36) K/mm3 Baso # (Auto) 0.00 L (0.01-0.08) K/mm3 Sodium 143 (136-145) mEq/L Potassium 3.9 (3.5-5.1) mEq/L Chloride 109 H (98-107) mEq/L Carbon Dioxide 26 (21-32) mEq/L Anion Gap 11.9 (5-15) BUN 10 (7-18) mg/dL Creatinine 0.8 (0.55-1.02) mg/dL Est Cr Clr Drug Dosing 81.53 mL/min Estimated GFR (MDRD) > 60 (>60) mL/min BUN/Creatinine Ratio 12.5 L (14-18) Glucose 213 H (74-106) mg/dL POC Glucose 251 H (70-105) mg/dL Lactic Acid (0.4-2.0) mmol/L Calcium 8.3 L (8.5-10.1) mg/dL Magnesium 2.3 (1.8-2.4) mg/dl C-Reactive Protein 3.4 H* (<1.0) mg/dL Mycoplasma pneumon IgM (NEGATIVE) 10/12/17 10/12/17 Range/Units 05:45 05:55 WBC (3.98-10.04) K/mm3 RBC (3.98-5.22) M/mm3 Hgb (11.2-15.7) gm/L Hct (34.1-44.9) % MCV (79.4-94.8) fl MCH (25.6-32.2) pg MCHC (32.2-35.5) g/dl RDW Std Deviation (36.4-46.3) fL Plt Count (182-369) K/mm3 MPV (9.4-12.3) fl Neut % (Auto) (34.0-71.1) % Lymph % (Auto) (19.3-51.7) % [place] % (Auto) (4.7-12.5) % Eos % (Auto) (0.7-5.8) Baso % (Auto) (0.1-1.2) % Neut # (Auto) (1.56-6.13) K/mm3 Lymph # (Auto) (1.18-3.74) K/mm3 [place] # (Auto) (0.24-0.36) K/mm3 Eos # (Auto) (0.04-0.36) K/mm3 Baso # (Auto) (0.01-0.08) K/mm3 Sodium (136-145) mEq/L Potassium (3.5-5.1) mEq/L Chloride (98-107) mEq/L Carbon Dioxide (21-32) mEq/L Anion Gap (5-15) BUN (7-18) mg/dL Creatinine (0.55-1.02) mg/dL Est Cr Clr Drug Dosing mL/min Estimated GFR (MDRD) (>60) mL/min BUN/Creatinine Ratio (14-18) Glucose (74-106) mg/dL POC Glucose 229 H (70-105) mg/dL Lactic Acid 1.3 (0.4-2.0) mmol/L Calcium (8.5-10.1) mg/dL Magnesium (1.8-2.4) mg/dl C-Reactive Protein (<1.0) mg/dL Mycoplasma pneumon IgM (NEGATIVE) Richard Results Last 24 Hours: Microbiology 10/10/17 13:40 Aerobic Blood Culture - Preliminary Blood - Venous - Lab Draw NO GROWTH AFTER 1 DAY Anaerobic Blood Culture - Preliminary NO GROWTH AFTER 1 DAY 10/10/17 13:50 Aerobic Blood Culture - Preliminary Blood - Venous NO GROWTH AFTER 1 DAY Anaerobic Blood Culture - Preliminary NO GROWTH AFTER 1 DAY 10/10/17 16:02 Quick Strep Confirmation Culture - Preliminary Throat Group A Streptococcus Rapid Screen - Final NEGATIVE STREP A SCREEN Med Orders - Current: Current Medications Acetaminophen (Tylenol) 650 mg PO Q6H PRN PRN Reason: Pain/Fever Albuterol (Proventil Neb Soln) 2.5 mg NEB Q4HRRT PRN PRN Reason: Shortness of Breath Albuterol/Ipratropium (Duoneb 3.0-0.5 Mg/3 Ml) 3 ml NEB QID PRN PRN Reason: sob Dextrose/Water (Dextrose 50% In Water) 50 ml IVPUSH ASDIRECTED PRN PRN Reason: Hypoglycemia Fludrocortisone Acetate (Florinef) 0.1 mg PO DAILY [facility] Hydrocortisone Sodium Succinate (Solu-Cortef) 100 mg IVPUSH Q8H [facility] Last Admin: 10/12/17 05:04 Dose: 100 mg Insulin Aspart (Novolog) 0 unit SUBCUT QIDACANDBED [facility]; Protocol Last Admin: 10/11/17 22:17 Dose: 4 unit Levothyroxine Sodium (Synthroid) 175 mcg PO ACBREAKFAST [facility] Last Admin: 10/12/17 05:50 Dose: 175 mcg Lisinopril (Prinivil) 2.5 mg PO DAILY [facility] Ondansetron HCl (Zofran) 4 mg IVPUSH Q8H PRN PRN Reason: Nausea/Vomiting Pantoprazole Sodium (Protonix Iv) 40 mg IVPUSH Q12H [facility] Last Admin: 10/11/17 20:22 Dose: 40 mg Sodium Chloride (Saline Flush) 10 ml FLUSH ASDIRECTED PRN PRN Reason: Keep Vein Open Last Admin: 10/10/17 13:25 Dose: 10 ml Discontinued Medications Acetaminophen (Tylenol) 975 mg PO NOW ONE Stop: 10/10/17 12:55 Last Admin: 10/10/17 14:04 Dose: 975 mg Azithromycin (Zithromax) 500 mg IV Q24H [facility] Sodium Chloride (Normal Saline) 2,000 mls @ 999 mls/hr IV ONETIME ONE Stop: 10/10/17 14:50 Last Admin: 10/10/17 14:48 Dose: 999 mls/hr Sodium Chloride (Normal Saline) 1,000 mls @ 999 mls/hr IV ASDIRECTED [facility] Stop: 10/11/17 21:01 Last Admin: 10/10/17 22:44 Dose: 999 mls/hr Sodium Chloride (Normal Saline) 1,000 mls @ 100 mls/hr IV TITRATE [facility] Last Admin: 10/11/17 00:03 Dose: 100 mls/hr Azithromycin 500 mg/ Sodium (Chloride) 250 mls @ 250 mls/hr IV Q24H [facility] Last Admin: 10/11/17 09:05 Dose: 250 mls/hr Magnesium Sulfate 4 gm/ Premix 100 mls @ 300 mls/hr IV ONETIME ONE Stop: 10/11/17 07:47 Last Admin: 10/11/17 08:36 Dose: Not Given Magnesium Sulfate 2 gm/ Premix 50 mls @ 50 mls/hr IV Q1H [facility] Stop: 10/11/17 09:59 Last Admin: 10/11/17 10:10 Dose: 50 mls/hr Methylprednisolone Sodium Succinate (Solu-Medrol) 90 mg IVPUSH ONETIME ONE Stop: 10/10/17 13:03 Last Admin: 10/10/17 13:31 Dose: 90 mg Ondansetron HCl (Zofran) 4 mg IVPUSH ONETIME ONE Stop: 10/10/17 12:55 Last Admin: 10/10/17 13:28 Dose: 4 mg Pneumococcal Polyvalent Vaccine (Pneumovax 23) 0.5 ml IM .ONCE ONE Stop: 10/10/17 18:36 - Exam Quality Assessment: DVT Prophylaxis General: Alert, Oriented, Cooperative, No Acute Distress HEENT: Pupils Equal, Pupils Reactive, EOMI, Mucous Membr. Moist/[place] Neck: Supple, Trachea Midline, No JVD Lungs: Clear to Auscultation, Normal Respiratory Effort Cardiovascular: Regular Rate, Regular Rhythm GI/Abdominal Exam: Normal Bowel Sounds, Soft, Non-Tender, No Organomegaly, No Distention, No Abnormal Bruit, No Mass, Pelvis Stable Back Exam: Normal Inspection, Full Range of Motion Extremities: Normal Inspection, Normal Range of Motion, Non-Tender, No Pedal Edema, Normal Capillary Refill Peripheral Pulses: 2+: Radial (R), Femoral (L), Posterior Tibial (L), Posterior Tibial (R), Dorsalis Pedis (L), Dorsalis Pedis (R) Skin: Warm, Dry, Intact Neurological: No New Focal Deficit Psy/Mental Status: Alert, Normal Affect, Normal Mood - Problem List & Annotations (1) Hypothyroid SNOMED Code(s): 30804227 Code(s): E03.9 - HYPOTHYROIDISM, UNSPECIFIED Status: Acute Current Visit : Yes Qualifiers: Hypothyroidism type: unspecified Qualified Code(s): E03.9 - Hypothyroidism , unspecified (2) Addisons disease SNOMED Code(s): 843603908 Code(s): E27.1 - PRIMARY ADRENOCORTICAL INSUFFICIENCY Status: Chronic Priority: Low Current Visit: No (3) Insulin dependent diabetes mellitus SNOMED Code(s): 88609420 Code(s): E11.9 - TYPE 2 DIABETES MELLITUS WITHOUT COMPLICATIONS; Z79.4 - MCC (CURRENT) USE OF INSULIN Status: Chronic Priority: Low Current Visit: No - Problem List Review Problem List Initiated/Reviewed/Updated: Yes - My Orders Last 24 Hours: My Active Orders 10/12/17 08:10 HCG QUALITATIVE,SERUM [CHEM] Stat 10/12/17 08:16 Chest wo Cont [CT] Routine - Plan Plan:: Assessment/Plan: Acute: Kerr's Disease - 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 (had no hemodynamic instability and/or AMS or Loss of consciousness) - She received Solumedrol in ED as well as Solucortef 100 mg IV Q8H - Solu-cortef 100mg Q8HR - If remains stable maybe able to switch to her home dose in AM Hypothyroidism - TSH is significantly low; FT4 pending - Will adjust her thyroid dose once FT4 level is back Obesity with BMI of 39 - Counseled on LSM DM Type 2 - A1c 6.80 (no baseline) - BS in 200-300s - She is on stress dose steroids - Accu-check and ISS - Will resume home diabetic regimen in AM - No need for Diabetic Education while here, sees La at [facility] - Her diabetes is controlled well despite being on significant steroid regimen UA Positive - Repeat UA ordered today as culture was never ordered - She is asymptomatic Resolved: S/p Dehydration 2/2 GI loss Mycoplasma Pneumonia Positive - repeat negative, likely was false positive - Afebrile w/o leukocytosis - No respiratory issues or complaints - CXR is clear - UA pos with pending culture; unusual for Mycoplasma to cause it - Unsure if lab error; consider re-testing--> patient agreed - Strep, Influenza screening and Blood Culture- negative - She is currently on Azithromycin 500 mg po daily - stopped Gastroenteritis, - Suspected Viral +/- Mycoplasma pneumoniae and Medication Induced ( Trulicity side effects) - She is improving - Continue supportive care - Advance diet as tolerated - Avoid greasy/fatty meal Hypomagnsemia - Mg 1.5 - 2/2 inadequate intake - Replete and monitor Plan: She is clinically stable Continue current treatment Resume home dose florinef and lisinopril Clear liquids, advance as tolerated -> tollearting ADA diet Routine daily labs DVT/GI prophylaxis: SCDs and PPIs Encourage to ambulate as tolerated Code status: 1; PCP Dr. Pagan Possible d/c tomorrow
[2017-10-12] MEDS: Insulin Aspart 100 Units/ML 3 ML Pen SUBCUT SCH ×4 (09:11→21:44)
[2017-10-12] MEDS: Pantoprazole 40 MG Vial IVPUSH SCH (09:11)
[2017-10-12] MEDS: Lisinopril 2.5 MG Tab PO SCH (09:12)
[2017-10-12] MEDS: Fludrocortisone 0.1 MG Tab PO SCH (09:13)
--- NOTE | 2017-10-12 10:08 | CT ---
CT chest Technique: Axial sections were obtained from above the lung apices inferiorly through the lung bases. Intravenous contrast was not utilized. Comparison: Prior chest x-ray history of 10/10/18. Findings: Mediastinum and hilar regions show no adenopathy or mass. No coronary artery calcification is noted. No pericardial thickening is seen. Surgical clips are seen from prior cholecystectomy. No nodule is seen within the chest as identified on chest x-ray most likely overlapping artifact. Left lung is clear. Impression: 1. No nodule is seen on noncontrast chest CT as noted on chest x-ray. Previous chest x-ray finding is therefore felt to be due to overlapping density. 2. Prior cholecystectomy. Noncontrast chest CT is otherwise unremarkable. Diagnostic code #1
[2017-10-12] MEDS: Pantoprazole 40 MG Tab.CR PO SCH (20:43)
[2017-10-12] MEDS: Insulin Detemir 100 Units/ML 3 ML Pen SUBCUT SCH (20:44)
[2017-10-13] MEDS: Hydrocortisone Sodium Succinate 100 MG/2 ML SDV IVPUSH SCH ×2 (03:57→11:38)
[2017-10-13] MEDS: Levothyroxine 50 MCG Tab PO SCH (06:22)
[2017-10-13] MEDS: Insulin Aspart 100 Units/ML 3 ML Pen SUBCUT SCH ×2 (07:59→11:36)
[2017-10-13 08:06] VITALS: BP 149/73
[2017-10-13] MEDS: Fludrocortisone 0.1 MG Tab PO SCH (09:01)
[2017-10-13] MEDS: Pantoprazole 40 MG Tab.CR PO SCH (09:01)
[2017-10-13] MEDS: Insulin Detemir 100 Units/ML 3 ML Pen SUBCUT SCH (09:02)
[2017-10-13] MEDS: Lisinopril 2.5 MG Tab PO SCH (09:07)
--- NOTE | 2017-10-13 09:23 | PCM.DCSUM1 ---
Discharge Summary - Hospital Course HPI Initial Comments: 41 year old female presents with malaise, dehydration, and abdominal pain. She is nauseated and believes that she may have had an elevated temperature. She denies any sick contacts. There is no recent travel. She had a headache when presenting to the ED that has resolved. The patient denies constipation but has had frequent BMs. There has been no change on habits. - Discharge Data Discharge Date: 10/13/17 (Admit date:10/10/17) Discharge Disposition: Home, Self-Care 01 Condition: Good - Discharge Diagnosis/Problem(s) (1) Hypothyroid SNOMED Code(s): 27857083 ICD Code: E03.9 - HYPOTHYROIDISM, UNSPECIFIED Status: Acute Current Visit : Yes Qualifiers: Hypothyroidism type: unspecified Qualified Code(s): E03.9 - Hypothyroidism , unspecified (2) Addisons disease SNOMED Code(s): 932107991 ICD Code: E27.1 - PRIMARY ADRENOCORTICAL INSUFFICIENCY Status: Chronic Priority: Low Current Visit: No (3) Insulin dependent diabetes mellitus SNOMED Code(s): 98756009 ICD Code: E11.9 - TYPE 2 DIABETES MELLITUS WITHOUT COMPLICATIONS; Z79.4 - [employer] (CURRENT) USE OF INSULIN Status: Chronic Priority: Low Current Visit: No - Patient Summary/Data Labs Pending at D/C: None Recommended Follow-up Testing/Procedures: Follow-up with your PCP, Dr. Pagan within 7-10 days after discharge - sooner if need. We discussed that he may be out out town prior to you leaving for your trip. Anyone at [facility] would be suitable in his absence. Recommend recheck TSH in 3 months due to change in Synthroid dose. Hospital Course: Assessment/Plan: Acute: [place]'s Disease - 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 (had no hemodynamic instability and/or AMS or Loss of consciousness) - She received Solumedrol in ED as well as Solucortef 100 mg IV Q8H - Solu-cortef 100mg Q8HR - If remains stable maybe able to switch to her home dose in AM Hypothyroidism - TSH is significantly low; FT4 1.63 - Will adjust her thyroid dose Obesity with BMI of 39 - Counseled on LSM DM Type 2 - A1c 6.80 (no baseline) - BS in 200-300s - She is on stress dose steroids - Accu-check and ISS - Will resume home diabetic regimen in AM - No need for Diabetic Education while here, sees La at [facility] - Her diabetes is controlled well despite being on significant steroid regimen UA questionable - negative - Repeat UA ordered today as culture was never ordered - Negative - She is asymptomatic Resolved: S/p Dehydration 2/2 GI loss Mycoplasma Pneumonia Positive - repeat negative, likely was false positive - Afebrile w/o leukocytosis - No respiratory issues or complaints - CXR is clear - UA pos with pending culture; unusual for Mycoplasma to cause it - Unsure if lab error; consider re-testing--> patient agreed - Strep, Influenza screening and Blood Culture- negative - She is currently on Azithromycin 500 mg po daily - stopped Gastroenteritis, - Suspected Viral +/- Mycoplasma pneumoniae and Medication Induced ( Trulicity side effects) - She is improving - Continue supportive care - Advance diet as tolerated - Avoid greasy/fatty meal Hypomagnsemia - Mg 1.5 - 2/2 inadequate intake - Replete and monitor Plan: She is clinically stable Continue current treatment Resume home dose florinef and lisinopril Clear liquids, advance as tolerated -> tollearting ADA diet Routine daily labs DVT/GI prophylaxis: SCDs and PPIs Encourage to ambulate as tolerated Code status: 1; PCP Dr. Pagan d/c today Overall Judi did well while in our care. She had a very dirty UA on admission and repeat UA was negative. Respiratory viral panel was negative. She responded well to steroids. She was walking all over the halls without difficulty. She reports feeling much better today. She will be discharged on her home steroid dose. Her TSH was found to be quite low and her free T4 was high so we will decrease her home Synthroid dose to 150 from 175. She should have her TSH re- checked in around 3 months with her PCP. - Patient Instructions Diet: Diabetic Diet Activity: As Tolerated Driving: Do Not Drive (today ) Showering/Bathing: May Shower Notify Provider of: Fever, Increased Pain, Nausea and/or Vomiting (altered mental status, ) - Discharge Plan Prescriptions/Med Rec: Levothyroxine 150 mcg PO ACBREAKFAST #30 tab Home Medications: Home Meds Levothyroxine Sodium [Synthroid] 175 mcg PO DAILY 11/18/15 [History] Fludrocortisone [Florinef] 0.1 mg PO DAILY #30 tablet 11/20/15 [Rx] Dexamethasone 4 mg IM ASDIRECTED PRN 10/10/17 [History] Dulaglutide [Trulicity] 1.5 mg IM WEEKLY 10/10/17 [History] Hydrocortisone 0.5 tab PO ASDIRECTED PRN 10/10/17 [History] Hydrocortisone [Cortef] 1 tab PO DAILY 10/10/17 [History] Hydrocortisone [Cortef] 2 tab PO QAM 10/10/17 [History] Insulin Glarg,Human.Rec.Analog [Lantus] 30 units SUBCUT DAILY 10/10/17 [History] Lisinopril 2.5 mg PO DAILY 10/10/17 [History] Levothyroxine 150 mcg PO ACBREAKFAST #30 tab 10/13/17 [Rx] Patient Handouts: [place] Disease, Viral Gastroenteritis, Adult, [id number] Referrals: Kosta Pagan MD [Primary Care Provider] - 10/22/17 9:30 am (Please follow-up with [facility] primary care doctor, Dr. Pagan, on October 22 at 0930am. ) - Discharge Summary/Plan Comment DC Time >30 min.: Yes (45 mins ) - General Info Date of Service: 10/13/17 Admission Dx/Problem (Free Text: Admission Diagnosis/Problem Admission Diagnosis/Problem Gastroenteritis Subjective Update: In to see Judi. She is lying in bed reading a book. She reports she still does not feel 100% but is doing quite well. She has no concerns or complaints. Nursing has no concerns or complaints. Her TSH is low and her free T4 is high so will decrease her Synthroid dose to 150. She should follow-up with PCP in 3 months for recheck. She will be discharged home today. Functional Status: Reports: Pain Controlled, Tolerating Diet, Ambulating, Urinating. Denies: New Symptoms - Review of Systems General: Reports: Malaise (improved ). Denies: Fever, Weakness, Fatigue HEENT: Reports: No Symptoms. Denies: Ear Pain, Eye Pain, Headaches Pulmonary: Reports: No Symptoms. Denies: Shortness of Breath, Cough, Sputum, Wheezing Cardiovascular: Reports: No Symptoms. Denies: Chest Pain, Palpitations, Dyspnea on Exertion, Lightheadedness Gastrointestinal: Reports: No Symptoms. Denies: Abdominal Pain, Constipation, Diarrhea, Nausea, Vomiting Genitourinary: Reports: No Symptoms. Denies: Dysuria, Frequency, Burning Musculoskeletal: Reports: No Symptoms Skin: Reports: No Symptoms Neurological: Reports: No Symptoms Psychiatric: Reports: No Symptoms - Patient Data Vitals - Most Recent: Last Vital Signs Temp 97.8 F 10/13/17 09:00 Pulse 75 10/13/17 09:00 Resp 18 10/13/17 09:00 BP 149/73 H 10/13/17 09:07 Pulse Ox 98 10/13/17 08:06 Weight - Most Recent: 228 lb 4.8 oz I&O - Last 24 hours: Intake & Output 10/12/17 10/13/17 10/13/17 22:59 06:59 14:59 Intake Total 400 900 Output Total 950 1050 Balance -550 -150 Lab Results - Last 24 hrs: Laboratory Results - last 24 hr 10/12/17 10/12/17 10/12/17 Range/Units 11:27 17:34 21:43 WBC (3.98-10.04) K/mm3 RBC (3.98-5.22) M/mm3 Hgb (11.2-15.7) gm/L Hct (34.1-44.9) % MCV (79.4-94.8) fl MCH (25.6-32.2) pg MCHC (32.2-35.5) g/dl RDW Std Deviation (36.4-46.3) fL Plt Count (182-369) K/mm3 MPV (9.4-12.3) fl Neut % (Auto) (34.0-71.1) % Lymph % (Auto) (19.3-51.7) % Shannon % (Auto) (4.7-12.5) % Eos % (Auto) (0.7-5.8) Baso % (Auto) (0.1-1.2) % Neut # (Auto) (1.56-6.13) K/mm3 Lymph # (Auto) (1.18-3.74) K/mm3 Shannon # (Auto) (0.24-0.36) K/mm3 Eos # (Auto) (0.04-0.36) K/mm3 Baso # (Auto) (0.01-0.08) K/mm3 Sodium (136-145) mEq/L Potassium (3.5-5.1) mEq/L Chloride (98-107) mEq/L Carbon Dioxide (21-32) mEq/L Anion Gap (5-15) BUN (7-18) mg/dL Creatinine (0.55-1.02) mg/dL Est Cr Clr Drug Dosing mL/min Estimated GFR (MDRD) (>60) mL/min BUN/Creatinine Ratio (14-18) Glucose (74-106) mg/dL POC Glucose 285 H 297 H 277 H (70-105) mg/dL Lactic Acid (0.4-2.0) mmol/L Calcium (8.5-10.1) mg/dL Magnesium (1.8-2.4) mg/dl C-Reactive Protein (<1.0) mg/dL Free T4 (0.76-1.46) ng/dL Urine Color (Yellow) Urine Appearance (Clear) Urine pH (5.0-8.0) Ur Specific Silvis (1.005-1.030) Urine Protein (Negative) Urine Glucose (UA) (Negative) Urine Ketones (Negative) Urine Occult Blood (Negative) Urine Nitrite (Negative) Urine Bilirubin (Negative) Urine Urobilinogen (0.2-1.0) Ur Leukocyte Esterase (Negative) Urine RBC (0-5) /hpf Urine WBC (0-5) /hpf Ur Epithelial Cells (0-5) /hpf Urine Bacteria (FEW) /hpf Urine Mucus (FEW) /hpf 10/12/17 10/13/17 10/13/17 Range/Units 22:00 06:39 06:39 WBC 11.75 H (3.98-10.04) K/mm3 RBC 4.71 (3.98-5.22) M/mm3 Hgb 12.8 (11.2-15.7) gm/L Hct 39.0 (34.1-44.9) % MCV 82.8 (79.4-94.8) fl MCH 27.2 (25.6-32.2) pg MCHC 32.8 (32.2-35.5) g/dl RDW Std Deviation 38.0 (36.4-46.3) fL Plt Count 227 (182-369) K/mm3 MPV 11.6 (9.4-12.3) fl Neut % (Auto) 81.6 H (34.0-71.1) % Lymph % (Auto) 11.5 L (19.3-51.7) % Shannon % (Auto) 6.6 (4.7-12.5) % Eos % (Auto) 0 L (0.7-5.8) Baso % (Auto) 0.1 (0.1-1.2) % Neut # (Auto) 9.59 H (1.56-6.13) K/mm3 Lymph # (Auto) 1.35 (1.18-3.74) K/mm3 Shannon # (Auto) 0.78 H (0.24-0.36) K/mm3 Eos # (Auto) 0.00 L (0.04-0.36) K/mm3 Baso # (Auto) 0.01 (0.01-0.08) K/mm3 Sodium 143 (136-145) mEq/L Potassium 4.0 (3.5-5.1) mEq/L Chloride 106 (98-107) mEq/L Carbon Dioxide 27 (21-32) mEq/L Anion Gap 14.0 (5-15) BUN 14 (7-18) mg/dL Creatinine 0.9 (0.55-1.02) mg/dL Est Cr Clr Drug Dosing 72.47 mL/min Estimated GFR (MDRD) > 60 (>60) mL/min BUN/Creatinine Ratio 15.6 (14-18) Glucose 245 H (74-106) mg/dL POC Glucose (70-105) mg/dL Lactic Acid (0.4-2.0) mmol/L Calcium 8.4 L (8.5-10.1) mg/dL Magnesium 2.1 (1.8-2.4) mg/dl C-Reactive Protein 1.8 H* (<1.0) mg/dL Free T4 (0.76-1.46) ng/dL Urine Color Yellow (Yellow) Urine Appearance Clear (Clear) Urine pH 6.0 (5.0-8.0) Ur Specific Silvis 1.025 (1.005-1.030) Urine Protein Negative (Negative) Urine Glucose (UA) 2+ H (Negative) Urine Ketones Negative (Negative) Urine Occult Blood 2+ H (Negative) Urine Nitrite Negative (Negative) Urine Bilirubin Negative (Negative) Urine Urobilinogen 2.0 H (0.2-1.0) Ur Leukocyte Esterase Negative (Negative) Urine RBC 20-30 H (0-5) /hpf Urine WBC 0-5 (0-5) /hpf Ur Epithelial Cells 0-5 (0-5) /hpf Urine Bacteria Not seen (FEW) /hpf Urine Mucus Not seen (FEW) /hpf 10/13/17 10/13/17 10/13/17 Range/Units 06:39 06:39 06:43 WBC (3.98-10.04) K/mm3 RBC (3.98-5.22) M/mm3 Hgb (11.2-15.7) gm/L Hct (34.1-44.9) % MCV (79.4-94.8) fl MCH (25.6-32.2) pg MCHC (32.2-35.5) g/dl RDW Std Deviation (36.4-46.3) fL Plt Count (182-369) K/mm3 MPV (9.4-12.3) fl Neut % (Auto) (34.0-71.1) % Lymph % (Auto) (19.3-51.7) % Shannon % (Auto) (4.7-12.5) % Eos % (Auto) (0.7-5.8) Baso % (Auto) (0.1-1.2) % Neut # (Auto) (1.56-6.13) K/mm3 Lymph # (Auto) (1.18-3.74) K/mm3 Shannon # (Auto) (0.24-0.36) K/mm3 Eos # (Auto) (0.04-0.36) K/mm3 Baso # (Auto) (0.01-0.08) K/mm3 Sodium (136-145) mEq/L Potassium (3.5-5.1) mEq/L Chloride (98-107) mEq/L Carbon Dioxide (21-32) mEq/L Anion Gap (5-15) BUN (7-18) mg/dL Creatinine (0.55-1.02) mg/dL Est Cr Clr Drug Dosing mL/min Estimated GFR (MDRD) (>60) mL/min BUN/Creatinine Ratio (14-18) Glucose (74-106) mg/dL POC Glucose 239 H (70-105) mg/dL Lactic Acid 1.8 (0.4-2.0) mmol/L Calcium (8.5-10.1) mg/dL Magnesium (1.8-2.4) mg/dl C-Reactive Protein (<1.0) mg/dL Free T4 1.63 H (0.76-1.46) ng/dL Urine Color (Yellow) Urine Appearance (Clear) Urine pH (5.0-8.0) Ur Specific Silvis (1.005-1.030) Urine Protein (Negative) Urine Glucose (UA) (Negative) Urine Ketones (Negative) Urine Occult Blood (Negative) Urine Nitrite (Negative) Urine Bilirubin (Negative) Urine Urobilinogen (0.2-1.0) Ur Leukocyte Esterase (Negative) Urine RBC (0-5) /hpf Urine WBC (0-5) /hpf Ur Epithelial Cells (0-5) /hpf Urine Bacteria (FEW) /hpf Urine Mucus (FEW) /hpf SHAR Results - Last 24 hrs: Microbiology 10/10/17 23:30 Streptococcus pneumoniae Antigen (M - Final Urine 10/11/17 04:20 Respiratory Virus Panel (PCR) - Final Nasopharyngeal Swab - Nare, Unspecified 10/10/17 13:40 Aerobic Blood Culture - Preliminary Blood - Venous - Lab Draw NO GROWTH AFTER 2 DAYS Anaerobic Blood Culture - Preliminary NO GROWTH AFTER 2 DAYS 10/10/17 13:50 Aerobic Blood Culture - Preliminary Blood - Venous NO GROWTH AFTER 2 DAYS Anaerobic Blood Culture - Preliminary NO GROWTH AFTER 2 DAYS 10/10/17 16:02 Quick Strep Confirmation Culture - Final Throat NEGATIVE FOR BETA STREP Group A Streptococcus Rapid Screen - Final NEGATIVE STREP A SCREEN Med Orders - Current: Current Medications Acetaminophen (Tylenol) 650 mg PO Q6H PRN PRN Reason: Pain/Fever Albuterol (Proventil Neb Soln) 2.5 mg NEB Q4HRRT PRN PRN Reason: Shortness of Breath Albuterol/Ipratropium (Duoneb 3.0-0.5 Mg/3 Ml) 3 ml NEB QID PRN PRN Reason: sob Dextrose/Water (Dextrose 50% In Water) 50 ml IVPUSH ASDIRECTED PRN PRN Reason: Hypoglycemia Fludrocortisone Acetate (Florinef) 0.1 mg PO DAILY [facility] Last Admin: 10/13/17 09:01 Dose: 0.1 mg Hydrocortisone Sodium Succinate (Solu-Cortef) 100 mg IVPUSH Q8H [facility] Last Admin: 10/13/17 03:57 Dose: 100 mg Insulin Aspart (Novolog) 0 unit SUBCUT QIDACANDBED [facility]; Protocol Last Admin: 10/13/17 07:59 Dose: 2 unit Insulin Detemir (Levemir) 15 unit SUBCUT BID [facility] Last Admin: 10/13/17 09:02 Dose: 15 units Levothyroxine Sodium (Synthroid) 175 mcg PO ACBREAKFAST [facility] Last Admin: 10/13/17 06:22 Dose: 175 mcg Lisinopril (Prinivil) 2.5 mg PO DAILY [facility] Last Admin: 10/13/17 09:07 Dose: 2.5 mg Magnesium Sulfate (Pharmacy To Dose - Magnesium Replacement) 1 dose .XX ASDIRECTED [facility] Ondansetron HCl (Zofran) 4 mg IVPUSH Q8H PRN PRN Reason: Nausea/Vomiting Pantoprazole Sodium (Protonix) 40 mg PO BID [facility] Last Admin: 10/13/17 09:01 Dose: 40 mg Potassium Chloride (Pharmacy To Dose - Potassium Replacement) 1 dose .XX ASDIRECTED [facility] Sodium Chloride (Saline Flush) 10 ml FLUSH ASDIRECTED PRN PRN Reason: Keep Vein Open Last Admin: 10/10/17 13:25 Dose: 10 ml Discontinued Medications Acetaminophen (Tylenol) 975 mg PO NOW ONE Stop: 10/10/17 12:55 Last Admin: 10/10/17 14:04 Dose: 975 mg Azithromycin (Zithromax) 500 mg IV Q24H [facility] Sodium Chloride (Normal Saline) 2,000 mls @ 999 mls/hr IV ONETIME ONE Stop: 10/10/17 14:50 Last Admin: 10/10/17 14:48 Dose: 999 mls/hr Sodium Chloride (Normal Saline) 1,000 mls @ 999 mls/hr IV ASDIRECTED [facility] Stop: 10/11/17 21:01 Last Admin: 10/10/17 22:44 Dose: 999 mls/hr Sodium Chloride (Normal Saline) 1,000 mls @ 100 mls/hr IV TITRATE [facility] Last Admin: 10/11/17 00:03 Dose: 100 mls/hr Azithromycin 500 mg/ Sodium (Chloride) 250 mls @ 250 mls/hr IV Q24H [facility] Last Admin: 10/11/17 09:05 Dose: 250 mls/hr Magnesium Sulfate 4 gm/ Premix 100 mls @ 300 mls/hr IV ONETIME ONE Stop: 10/11/17 07:47 Last Admin: 10/11/17 08:36 Dose: Not Given Magnesium Sulfate 2 gm/ Premix 50 mls @ 50 mls/hr IV Q1H [facility] Stop: 10/11/17 09:59 Last Admin: 10/11/17 10:10 Dose: 50 mls/hr Methylprednisolone Sodium Succinate (Solu-Medrol) 90 mg IVPUSH ONETIME ONE Stop: 10/10/17 13:03 Last Admin: 10/10/17 13:31 Dose: 90 mg Ondansetron HCl (Zofran) 4 mg IVPUSH ONETIME ONE Stop: 10/10/17 12:55 Last Admin: 10/10/17 13:28 Dose: 4 mg Pantoprazole Sodium (Protonix Iv) 40 mg IVPUSH Q12H [facility] Last Admin: 10/12/17 09:11 Dose: 40 mg Pneumococcal Polyvalent Vaccine (Pneumovax 23) 0.5 ml IM .ONCE ONE Stop: 10/10/17 18:36 - Exam Quality Assessment: Reports: DVT Prophylaxis General: Reports: Alert, Oriented, Cooperative, No Acute Distress HEENT: Reports: Pupils Equal, Pupils Reactive, EOMI, Mucous Membr. Moist/[place] Neck: Reports: Supple, Trachea Midline, No JVD Lungs: Reports: Clear to Auscultation, Normal Respiratory Effort Cardiovascular: Reports: Regular Rate, Regular Rhythm GI/Abdominal Exam: Normal Bowel Sounds, Soft, Non-Tender, No Organomegaly, No Distention, No Abnormal Bruit, No Mass, Pelvis Stable (Female) Exam: Deferred Rectal (Female) Exam: Deferred Back Exam: Reports: Normal Inspection, Full Range of Motion Extremities: Normal Inspection, Normal Range of Motion, Non-Tender, No Pedal Edema, Normal Capillary Refill Skin: Reports: Warm, Dry, Intact Neurological: Reports: No New Focal Deficit Psy/Mental Status: Reports: Alert, Normal Affect, Normal Mood
== END 2017-10-13 12:50 | disposition home or self-care (01) ==
LOC: JD.ED 11:38 → JD.MS 17:11
PROVIDERS: ADMIT Internal Medicine Cardiovascular Disease; ATTEND Internal Medicine Cardiovascular Disease
DX: E03.9 Hypothyroidism, unspecified (principal); E27.1 Primary adrenocortical insufficiency; E11.9 Type 2 diabetes mellitus without complications; Z79.4 Long term (current) use of insulin; Z79.899 Other long term (current) drug therapy; Z87.891 Personal history of nicotine dependence
CPT/HCPCS: 36415; 71045; 71250; 74019; 80048; 80053; 81001; 82962; 83036; 83605; 83735; 84439; 84443; 84703; 85025; 86140; 86738; 87040; 87081; 87430; 87486; 87581; 87633; 87798; 87804; 87899; 90732; 96361; 96365; 96367; 96368; 96374; 96375; 96376; 99285; A9270; C9113; G0009; G0378; J0456; J1720; J1815; J2405; J2930; J7040; J7050; 99284; J3475

== ENCOUNTER 2019-08-14 12:42 | Observation (INO) | payer BC ==
[2019-08-14] MEDS ORDERED: Ondansetron 4 MG/2 ML SDV IVPUSH ONE (12:57)
[2019-08-14] MEDS ORDERED: Sodium Chloride 0.9% 1,000 ML IV SCH (13:00)
[2019-08-14] MEDS ORDERED: HYDROmorphone 0.5 MG/0.5 ML Syringe IVPUSH ONE ×2 (13:43→19:14)
[2019-08-14] MEDS ORDERED: Hydrocortisone Sodium Succinate 100 MG/2 ML SDV IV ONE (13:43)
[2019-08-14] MEDS ORDERED: Sodium Chloride 0.9% 1,000 ML IV ONE (13:45)
--- NOTE | 2019-08-14 13:48 | EDM.PDOC ---
ED HPI GENERAL MEDICAL PROBLEM - General Chief Complaint: Gastrointestinal Problem Stated Complaint: THROWING UP/HAS DIABETIES Time Seen by Provider: 08/14/19 13:35 - History of Present Illness INITIAL COMMENTS - FREE TEXT/NARRATIVE: 43-year-old female presents the emergency room with some abdominal pain nausea vomiting. This started early this morning. She is vomited multiple times. Patient has a complicated medical history she has insulin-dependent diabetes hypothyroidism and Ryan's disease. She has been admitted with this in the past.. Patient denies any fevers or chills has significant nausea vomiting and abdominal pain. The patient has not tried anything for the vomiting as she did not have anything at home to take. She describes her abdominal pain is been lower abdominal in nature. She denies any burning or frequency with urination. She denies any constipation or diarrhea. abdomen Pain Score (Numeric/FACES): 6 - Related Data Allergies Allergy/AdvReac Type Severity Reaction Status Date / Time No Known Allergies Allergy Verified 08/14/19 12:56 Home Meds: Home Meds Levothyroxine Sodium [Synthroid] 175 mcg PO DAILY 11/18/15 [History] Fludrocortisone [Florinef] 0.1 mg PO DAILY #30 tablet 11/20/15 [Rx] Hydrocortisone 0.5 tab PO ASDIRECTED PRN 10/10/17 [History] Hydrocortisone [Cortef] 1 tab PO DAILY 10/10/17 [History] Hydrocortisone [Cortef] 2 tab PO QAM 10/10/17 [History] Insulin Glarg,Human.Rec.Analog [Lantus] 30 units SUBCUT DAILY 10/10/17 [History] Lisinopril 2.5 mg PO DAILY 10/10/17 [History] dexAMETHasone [Dexamethasone] 4 mg IM ASDIRECTED PRN 10/10/17 [History] Levothyroxine 150 mcg PO ACBREAKFAST #30 tab 10/13/17 [Rx] Past Medical History 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: Other RESAW FEEDER History: 1 Endocrine/Metabolic History: Reports: Ryan's Disease, Diabetes, Type II, Hypothyroidism, IDDM - Infectious Disease History Infectious Disease History: Reports: Chicken Pox, Influenza - Past Surgical History GI Surgical History: Reports: Appendectomy, Cholecystectomy Social & Family History - Family History Family Medical History: Noncontributory - Tobacco Use Smoking Status *Q: Never Smoker - Caffeine Use Caffeine Use: Reports: None - Recreational Drug Use Recreational Drug Use: No ED ROS GENERAL - Review of Systems Review Of Systems: See Below Constitutional: Denies: Fever, Chills HEENT: Reports: No Symptoms Respiratory: Reports: No Symptoms Cardiovascular: Reports: No Symptoms GI/Abdominal: Reports: Abdominal Pain, Nausea, Vomiting. Denies: Constipation, Diarrhea : Reports: No Symptoms Musculoskeletal: Reports: Other (A little achy otherwise doing okay) Skin: Reports: No Symptoms Neurological: Reports: No Symptoms Psychiatric: Reports: No Symptoms ED EXAM, GI/ABD - Physical Exam Exam: See Below Exam Limited By: No Limitations General Appearance: Alert, Mild Distress (Feeling miserable and nausea and vomiting) Eyes: Bilateral: Normal Appearance Ears: Normal External Exam, Normal Canal, Hearing Grossly Normal, Normal TMs Nose: Normal Inspection, Normal Mucosa, No Blood Throat/Mouth: Normal Inspection, Normal Lips, Normal Teeth, Normal Gums, Normal Oropharynx, Normal Voice, No Airway Compromise Head: Atraumatic, Normocephalic Neck: Normal Inspection, Supple, Non-Tender, Full Range of Motion Respiratory/Chest: No Respiratory Distress, Lungs Clear, Normal Breath Sounds Cardiovascular: Regular Rate, Rhythm, No Edema, No Murmur GI/Abdominal Exam: Normal Bowel Sounds, Soft, Tender (He has significant lower abdominal discomfort). No: Guarding, Rigid, Rebound Back Exam: Normal Inspection. No: CVA Tenderness (L), CVA Tenderness (R) Extremities: Normal Inspection Course - Vital Signs Last Recorded V/S: Last Vital Signs Temp 36.2 C 08/14/19 12:51 Pulse 75 08/14/19 12:51 Resp 22 H 08/14/19 12:51 BP 155/77 H 08/14/19 12:51 Pulse Ox 99 08/14/19 12:51 - Orders/Labs/Meds Orders: Active Orders 24 hr Category Date Time Status Accu Check [Blood Glucose Check, Bedside] [RC] ONETIME Care 08/14/19 13:35 Active Chest 2V [CR] Stat Exams 08/14/19 17:07 Taken Lactated Ringers [Ringers, Lactated] 1,000 ml Med 08/14/19 16:45 Active IV ASDIRECTED Medication Orders Lactated Ringer's (Ringers, Lactated) 1,000 mls @ 150 mls/hr IV ASDIRECTED [facility] Labs: Laboratory Tests 08/14/19 08/14/19 08/14/19 Range/Units 13:11 13:11 13:14 WBC 19.79 H (3.98-10.04) K/mm3 RBC 5.97 H (3.98-5.22) M/mm3 Hgb 16.3 H D (11.2-15.7) gm/dl Hct 49.5 H (34.1-44.9) % MCV 82.9 (79.4-94.8) fl MCH 27.3 (25.6-32.2) pg MCHC 32.9 (32.2-35.5) g/dl RDW Std Deviation 39.6 (36.4-46.3) fL Plt Count 272 (182-369) K/mm3 MPV 11.2 (9.4-12.3) fl Neut % (Auto) 83.5 H (34.0-71.1) % Lymph % (Auto) 10.3 L (19.3-51.7) % [place] % (Auto) 4.7 (4.7-12.5) % Eos % (Auto) 0.9 (0.7-5.8) Baso % (Auto) 0.3 (0.1-1.2) % Neut # (Auto) 16.54 H (1.56-6.13) K/mm3 Lymph # (Auto) 2.04 (1.18-3.74) K/mm3 [place] # (Auto) 0.93 H (0.24-0.36) K/mm3 Eos # (Auto) 0.18 (0.04-0.36) K/mm3 Baso # (Auto) 0.05 (0.01-0.08) K/mm3 Manual Slide Review Abnormal smear Sodium 137 (136-145) mEq/L Potassium 4.0 (3.5-5.1) mEq/L Chloride 101 (98-107) mEq/L Carbon Dioxide 28 (21-32) mEq/L Anion Gap 12.0 (5-15) BUN 12 (7-18) mg/dL Creatinine 1.1 H (0.55-1.02) mg/dL Est Cr Clr Drug Dosing 58.12 mL/min Estimated GFR (MDRD) 55 (>60) mL/min BUN/Creatinine Ratio 10.9 L (14-18) Glucose 126 H (74-106) mg/dL POC Glucose 96 (70-105) mg/dL Calcium 9.2 (8.5-10.1) mg/dL Total Bilirubin 0.6 (0.2-1.0) mg/dL AST 144 H (15-37) U/L ALT 151 H (14-59) U/L Alkaline Phosphatase 367 H (46-116) U/L C-Reactive Protein 3.1 H* (<1.0) mg/dL Total Protein 8.0 (6.4-8.2) g/dl Albumin 3.7 (3.4-5.0) g/dl Globulin 4.3 gm/dL Albumin/Globulin Ratio 0.9 L (1-2) Urine Color (Yellow) Urine Appearance (Clear) Urine pH (5.0-8.0) Ur Specific [place] (1.005-1.030) Urine Protein (Negative) Urine Glucose (UA) (Negative) Urine Ketones (Negative) Urine Occult Blood (Negative) Urine Nitrite (Negative) Urine Bilirubin (Negative) Urine Urobilinogen (0.2-1.0) Ur Leukocyte Esterase (Negative) Urine RBC (0-5) /hpf Urine WBC (0-5) /hpf Ur Squamous Epith Cells (0-5) /hpf Urine Bacteria (FEW) /hpf Urine Mucus (FEW) /hpf Urine HCG, Qual (NEGATIVE) 08/14/19 08/14/19 Range/Units 17:03 17:03 WBC (3.98-10.04) K/mm3 RBC (3.98-5.22) M/mm3 Hgb (11.2-15.7) gm/dl Hct (34.1-44.9) % MCV (79.4-94.8) fl MCH (25.6-32.2) pg MCHC (32.2-35.5) g/dl RDW Std Deviation (36.4-46.3) fL Plt Count (182-369) K/mm3 MPV (9.4-12.3) fl Neut % (Auto) (34.0-71.1) % Lymph % (Auto) (19.3-51.7) % [place] % (Auto) (4.7-12.5) % Eos % (Auto) (0.7-5.8) Baso % (Auto) (0.1-1.2) % Neut # (Auto) (1.56-6.13) K/mm3 Lymph # (Auto) (1.18-3.74) K/mm3 [place] # (Auto) (0.24-0.36) K/mm3 Eos # (Auto) (0.04-0.36) K/mm3 Baso # (Auto) (0.01-0.08) K/mm3 Manual Slide Review Sodium (136-145) mEq/L Potassium (3.5-5.1) mEq/L Chloride (98-107) mEq/L Carbon Dioxide (21-32) mEq/L Anion Gap (5-15) BUN (7-18) mg/dL Creatinine (0.55-1.02) mg/dL Est Cr Clr Drug Dosing mL/min Estimated GFR (MDRD) (>60) mL/min BUN/Creatinine Ratio (14-18) Glucose (74-106) mg/dL POC Glucose (70-105) mg/dL Calcium (8.5-10.1) mg/dL Total Bilirubin (0.2-1.0) mg/dL AST (15-37) U/L ALT (14-59) U/L Alkaline Phosphatase (46-116) U/L C-Reactive Protein (<1.0) mg/dL Total Protein (6.4-8.2) g/dl Albumin (3.4-5.0) g/dl Globulin gm/dL Albumin/Globulin Ratio (1-2) Urine Color Yellow (Yellow) Urine Appearance Clear (Clear) Urine pH 7.0 (5.0-8.0) Ur Specific [place] 1.020 (1.005-1.030) Urine Protein Negative (Negative) Urine Glucose (UA) Negative (Negative) Urine Ketones Negative (Negative) Urine Occult Blood 3+ H (Negative) Urine Nitrite Negative (Negative) Urine Bilirubin Negative (Negative) Urine Urobilinogen 0.2 (0.2-1.0) Ur Leukocyte Esterase Negative (Negative) Urine RBC 5-10 H (0-5) /hpf Urine WBC 0-5 (0-5) /hpf Ur Squamous Epith Cells 0-5 (0-5) /hpf Urine Bacteria Occasional (FEW) /hpf Urine Mucus Not seen (FEW) /hpf Urine HCG, Qual Negative (NEGATIVE) Meds: Medications Generic Name Dose Route Start Last Admin Trade Name Freq PRN Reason Stop Dose Admin Lactated Ringer's 1,000 mls @ 150 mls/hr 08/14/19 16:45 Ringers, Lactated IV ASDIRECTED KRISH Discontinued Medications Generic Name Dose Route Start Last Admin Trade Name Freq PRN Reason Stop Dose Admin Hydrocortisone Sodium Succinate 100 mg 08/14/19 13:43 08/14/19 14:15 Solu-Cortef IV 08/14/19 13:44 100 mg ONETIME ONE Administration Hydromorphone HCl 0.5 mg 08/14/19 13:43 08/14/19 14:15 Dilaudid IVPUSH 08/14/19 13:44 0.5 mg ONETIME ONE Administration Sodium Chloride 1,000 mls @ 999 mls/hr 08/14/19 13:00 08/14/19 13:01 Normal Saline IV 999 mls/hr ASDIRECTED KRISH Administration Sodium Chloride 1,000 mls @ 999 mls/hr 08/14/19 13:45 08/14/19 14:15 Normal Saline IV 08/14/19 14:45 999 mls/hr ONETIME ONE Administration Ondansetron HCl 4 mg 08/14/19 12:57 08/14/19 13:01 Zofran IVPUSH 08/14/19 12:58 4 mg ONETIME ONE Administration - Re-Assessments/Exams Free Text/Narrative Re-Assessment/Exam: 08/14/19 16:36 Patient doing better with Zofran dilaudid patient still feels poorly with her elevated white count at 19,790 and fluids but not feeling well still awaiting urinalysis. 08/14/19 19:[address] that showed no acute changes. Chest x-ray per my interpretation shows no acute cardiopulmonary changes. Urinalysis does not show an infection she is got 3+ blood otherwise unremarkable her influenza screen was negative. With a combination of insulin-dependent diabetes [place]oto' s disease the patient will be placed on observation to make sure she improves and to adjust her steroid therapy. After my initial exam she received 100 mg of hydrocortisone IV. Case discussed with Dr. Tee our hospitalist. He will assume care. Departure - Departure Time of Disposition: 19:09 Disposition: Refer to Observation Clinical Impression: Addisons disease, Vomiting, Insulin dependent diabetes mellitus - Discharge Information Referrals: Kosta Pagan MD [Primary Care Provider] - Forms: ED Department Discharge Sepsis Event Note - Evaluation Sepsis Screening Result: No Definite Risk - Focused Exam Vital Signs: Vital Signs Temp Pulse Resp BP Pulse Ox 08/14/19 12:51 36.2 C 75 22 H 155/77 H 99 Date Exam was Performed: 08/14/19 Time Exam was Performed: 19:14 - My Orders Last 24 Hours: My Active Orders 08/14/19 13:35 Accu Check [Blood Glucose Check, Bedside] [RC] ONETIME 08/14/19 16:45 Lactated Ringers [Ringers, Lactated] 1,000 ml IV ASDIRECTED 08/14/19 17:07 Chest 2V [CR] Stat - Assessment/Plan Last 24 Hours: My Active Orders 08/14/19 13:35 Accu Check [Blood Glucose Check, Bedside] [RC] ONETIME 08/14/19 16:45 Lactated Ringers [Ringers, Lactated] 1,000 ml IV ASDIRECTED 08/14/19 17:07 Chest 2V [CR] Stat
--- NOTE | 2019-08-14 18:20 | CT ---
CT abdomen and pelvis Technique: Multiple axial sections were obtained from above the dome of the diaphragm inferiorly to the pubic symphysis. Intravenous contrast was utilized. No oral contrast has been given. Comparison: Prior abdominal x-ray of 10/10/17. Findings: Visualized lung bases show nothing acute. Liver contains no focal abnormality. Surgical clips are seen from prior cholecystectomy. Spleen appears within normal limits. Adrenal glands show no nodule. Pancreas is within normal limits. Kidneys show symmetric contrast enhancement without hydronephrosis or mass. Soft tissue nodule is noted medial to the spleen compatible with accessory splenic tissue. Aorta shows no aneurysm. No retroperitoneal adenopathy or mesenteric abnormalities are seen. No pelvic mass or adenopathy is seen. Appendix is not visualized with certainty. No free fluid or inflammatory change is appreciated. Delayed images shows contrast within both distal ureters and within the bladder. Bone window settings were reviewed. No acute osseous finding is appreciated. Impression: 1. Nothing acute is appreciated on CT study of the abdomen. 2. Findings believed to be incidental as described above. Diagnostic code #1 Study was dictated in [place] Standard Time
[2019-08-14] MEDS: Lactated Ringers 1,000 ML IV SCH (19:22)
[2019-08-14] MEDS ORDERED: Ondansetron 4 MG/2 ML SDV IVPUSH PRN (21:29)
[2019-08-14] MEDS ORDERED: Acetaminophen 325 MG Tab PO PRN (21:43)
[2019-08-14] MEDS ORDERED: 50% Dextrose in Water 50 ML Syringe IVPUSH PRN (21:48)
--- NOTE | 2019-08-14 21:55 | PCM.HP.2 ---
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 Patient states that over the last week she has been out of school because of an upper respiratory tract infection. She states that she was fatigued and spent most of the week trying to sleep it off. She did not increase her hydrocortisone. This morning she woke up not feeling well, went back to bed, when she woke up took her insulin then started vomiting bile. She vomited 5-6 times and then proceeded to the emergency room at approximately 1300. Patient denies any recent fever or chills. She had some lower abdominal cramping secondary to starting her menstrual cycle yesterday. She states that this current nausea and vomiting, without diarrhea, is consistent to when she starts having problems with her [place]'s. Patient is on hydrocortisone 10 mg in the morning and 20 mg in the evening and fludrocortisone 0.[address] scan of the abdomen was performed in the emergency room which showed no acute findings. Previous cholecystectomy. She was given 100 mg of hydrocortisone IV, fluids Zofran and decision to admit patient was decided. On presentation to the emergency room she did have a blood pressure of 155/77 with a pulse of 76, temperature 36.2 C, respiratory rate of 22. Initial lab work: WBC 19.8, hemoglobin 16.3, platelets 272, sodium 137, potassium 4.0, anion gap 12, BUN 12, creatinine 1.1, AST 144, ALT 151, alkaline phosphatase 367, C-reactive protein 3.1. abdomen Pain Score (Numeric/FACES): 3 - Related Data Allergies/Adverse Reactions: Allergies Allergy/AdvReac Type Severity Reaction Status Date / Time No Known Allergies Allergy Verified 08/14/19 20:51 Home Medications: Home Meds Levothyroxine Sodium [Synthroid] 175 mcg PO DAILY 11/18/15 [History] Fludrocortisone [Florinef] 0.1 mg PO DAILY #30 tablet 11/20/15 [Rx] Hydrocortisone 0.5 tab PO ASDIRECTED PRN 10/10/17 [History] Hydrocortisone [Cortef] 1 tab PO DAILY 10/10/17 [History] Hydrocortisone [Cortef] 2 tab PO QAM 10/10/17 [History] Insulin Glarg,Human.Rec.Analog [Lantus] 35 units SUBCUT DAILY 10/10/17 [History] Lisinopril 2.5 mg PO DAILY 10/10/17 [History] dexAMETHasone [Dexamethasone] 4 mg IM ASDIRECTED PRN 10/10/17 [History] Past Medical History HEENT History: Reports: Impaired Vision, Other (See Below) Other HEENT History: pt wears glasses 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 OB/BYN History: 1 - vaginal Endocrine/Metabolic History: Reports: [place]'s Disease, Diabetes, Type II, Hypothyroidism, IDDM - Infectious Disease History Infectious Disease History: Reports: Chicken Pox, Influenza - Past Surgical History HEENT Surgical History: Reports: None GI Surgical History: Reports: Appendectomy, Cholecystectomy Social & Family History - Family History Family Medical History: Noncontributory - Tobacco Use Smoking Status *Q: Former Smoker Used Tobacco, but Quit: No Second Hand Smoke Exposure: No - Caffeine Use Caffeine Use: Reports: Coffee, Soda Other Caffeine Use: coffee one cup a diet, couple of diet mt dews a day 2-3 - Recreational Drug Use Recreational Drug Use: No H&P Review of Systems - Review of Systems: Review Of Systems: Comprehensive ROS is negative, except as noted in HPI. Exam - Exam Exam: See Below - Vital Signs Vital Signs: Last Vital Signs Temp 98.1 F 08/14/19 20:17 Pulse 80 08/14/19 20:17 Resp 18 08/14/19 20:17 BP 147/65 H 08/14/19 20:17 Pulse Ox 96 08/14/19 20:17 Weight: 232 lb 9.6 oz - Exam General: Alert, Oriented, 4 HEENT: Conjunctiva Clear, Mucosa Moist & [place] Neck: Supple, Trachea Midline, 2 Lungs: Clear to Auscultation, Normal Respiratory Effort Cardiovascular: Regular Rate, Regular Rhythm GI/Abdominal Exam: Normal Bowel Sounds, Soft, Tender (Mild suprapubic tenderness without guarding or rebound. Negative Rubio sign) Back Exam: Normal Inspection Extremities: Normal Inspection, Normal Range of Motion, Non-Tender, No Pedal Edema, Normal Capillary Refill Skin: Warm, Dry, Intact Neurological: Cranial Nerves Intact Neuro Extensive - Mental Status: Alert, Oriented x3 Neuro Extensive - Motor, Sensory, Reflexes: CN II-XII Intact, Normal Gait, Normal Reflexes Psychiatric: Alert, Normal Affect, Normal Mood - Patient Data Lab Results Last 24 hrs: Laboratory Results - last 24 hr 08/14/19 08/14/19 08/14/19 Range/Units 13:11 13:11 13:14 WBC 19.79 H (3.98-10.04) K/mm3 RBC 5.97 H (3.98-5.22) M/mm3 Hgb 16.3 H D (11.2-15.7) gm/dl Hct 49.5 H (34.1-44.9) % MCV 82.9 (79.4-94.8) fl MCH 27.3 (25.6-32.2) pg MCHC 32.9 (32.2-35.5) g/dl RDW Std Deviation 39.6 (36.4-46.3) fL Plt Count 272 (182-369) K/mm3 MPV 11.2 (9.4-12.3) fl Neut % (Auto) 83.5 H (34.0-71.1) % Lymph % (Auto) 10.3 L (19.3-51.7) % Dunn % (Auto) 4.7 (4.7-12.5) % Eos % (Auto) 0.9 (0.7-5.8) Baso % (Auto) 0.3 (0.1-1.2) % Neut # (Auto) 16.54 H (1.56-6.13) K/mm3 Lymph # (Auto) 2.04 (1.18-3.74) K/mm3 Dunn # (Auto) 0.93 H (0.24-0.36) K/mm3 Eos # (Auto) 0.18 (0.04-0.36) K/mm3 Baso # (Auto) 0.05 (0.01-0.08) K/mm3 Manual Slide Review Abnormal smear Sodium 137 (136-145) mEq/L Potassium 4.0 (3.5-5.1) mEq/L Chloride 101 (98-107) mEq/L Carbon Dioxide 28 (21-32) mEq/L Anion Gap 12.0 (5-15) BUN 12 (7-18) mg/dL Creatinine 1.1 H (0.55-1.02) mg/dL Est Cr Clr Drug Dosing 58.12 mL/min Estimated GFR (MDRD) 55 (>60) mL/min BUN/Creatinine Ratio 10.9 L (14-18) Glucose 126 H (74-106) mg/dL POC Glucose 96 (70-105) mg/dL Calcium 9.2 (8.5-10.1) mg/dL Total Bilirubin 0.6 (0.2-1.0) mg/dL AST 144 H (15-37) U/L ALT 151 H (14-59) U/L Alkaline Phosphatase 367 H (46-116) U/L C-Reactive Protein 3.1 H* (<1.0) mg/dL Total Protein 8.0 (6.4-8.2) g/dl Albumin 3.7 (3.4-5.0) g/dl Globulin 4.3 gm/dL Albumin/Globulin Ratio 0.9 L (1-2) Urine Color (Yellow) Urine Appearance (Clear) Urine pH (5.0-8.0) Ur Specific [place] (1.005-1.030) Urine Protein (Negative) Urine Glucose (UA) (Negative) Urine Ketones (Negative) Urine Occult Blood (Negative) Urine Nitrite (Negative) Urine Bilirubin (Negative) Urine Urobilinogen (0.2-1.0) Ur Leukocyte Esterase (Negative) Urine RBC (0-5) /hpf Urine WBC (0-5) /hpf Ur Squamous Epith Cells (0-5) /hpf Urine Bacteria (FEW) /hpf Urine Mucus (FEW) /hpf Urine HCG, Qual (NEGATIVE) 08/14/19 08/14/19 08/14/19 Range/Units 17:03 17:03 21:15 WBC (3.98-10.04) K/mm3 RBC (3.98-5.22) M/mm3 Hgb (11.2-15.7) gm/dl Hct (34.1-44.9) % MCV (79.4-94.8) fl MCH (25.6-32.2) pg MCHC (32.2-35.5) g/dl RDW Std Deviation (36.4-46.3) fL Plt Count (182-369) K/mm3 MPV (9.4-12.3) fl Neut % (Auto) (34.0-71.1) % Lymph % (Auto) (19.3-51.7) % Dunn % (Auto) (4.7-12.5) % Eos % (Auto) (0.7-5.8) Baso % (Auto) (0.1-1.2) % Neut # (Auto) (1.56-6.13) K/mm3 Lymph # (Auto) (1.18-3.74) K/mm3 Dunn # (Auto) (0.24-0.36) K/mm3 Eos # (Auto) (0.04-0.36) K/mm3 Baso # (Auto) (0.01-0.08) K/mm3 Manual Slide Review Sodium (136-145) mEq/L Potassium (3.5-5.1) mEq/L Chloride (98-107) mEq/L Carbon Dioxide (21-32) mEq/L Anion Gap (5-15) BUN (7-18) mg/dL Creatinine (0.55-1.02) mg/dL Est Cr Clr Drug Dosing mL/min Estimated GFR (MDRD) (>60) mL/min BUN/Creatinine Ratio (14-18) Glucose (74-106) mg/dL POC Glucose 101 (70-105) mg/dL Calcium (8.5-10.1) mg/dL Total Bilirubin (0.2-1.0) mg/dL AST (15-37) U/L ALT (14-59) U/L Alkaline Phosphatase (46-116) U/L C-Reactive Protein (<1.0) mg/dL Total Protein (6.4-8.2) g/dl Albumin (3.4-5.0) g/dl Globulin gm/dL Albumin/Globulin Ratio (1-2) Urine Color Yellow (Yellow) Urine Appearance Clear (Clear) Urine pH 7.0 (5.0-8.0) Ur Specific [place] 1.020 (1.005-1.030) Urine Protein Negative (Negative) Urine Glucose (UA) Negative (Negative) Urine Ketones Negative (Negative) Urine Occult Blood 3+ H (Negative) Urine Nitrite Negative (Negative) Urine Bilirubin Negative (Negative) Urine Urobilinogen 0.2 (0.2-1.0) Ur Leukocyte Esterase Negative (Negative) Urine RBC 5-10 H (0-5) /hpf Urine WBC 0-5 (0-5) /hpf Ur Squamous Epith Cells 0-5 (0-5) /hpf Urine Bacteria Occasional (FEW) /hpf Urine Mucus Not seen (FEW) /hpf Urine HCG, Qual Negative (NEGATIVE) Result Diagrams: 08/14/19 13:11 08/14/19 13:11 Richard Results Last 24 hrs: Microbiology 08/14/19 17:05 Influenza Type A Antigen Screen - Final Nasal, Unspecified NEGATIVE INFLUENZA A VIRUS AG REFERENCE RANGE: NEGATIVE Influenza Type B Antigen Screen - Final NEGATIVE INFLUENZA B VIRUS AG REFERENCE RANGE: NEGATIVE Sepsis Event Note - Evaluation Sepsis Screening Result: No Definite Risk - Focused Exam Vital Signs: Vital Signs Temp Temp Pulse Pulse Resp BP BP 08/14/19 20:17 98.1 F 80 18 147/65 H 08/14/19 20:10 79 19 110/54 L 08/14/19 12:51 97.1 F 75 22 H 155/77 H Pulse Ox 08/14/19 20:17 96 08/14/19 20:10 94 L 08/14/19 12:51 99 Date Exam was Performed: 08/14/19 Time Exam was Performed: 22:14 Problem List Initiated/Reviewed/Updated: Yes Orders Last 24hrs: Active Orders 24 hr Category Date Time Status Patient Status [ADT] Stat ADT 08/14/19 19:25 Active Accu Check [Blood Glucose Check, Bedside] [RC] ONETIME Care 08/14/19 13:35 Active Blood Glucose Check, Bedside [RC] QIDACANDBED Care 08/14/19 21:48 Ordered Oxygen Therapy [RC] PRN Care 08/14/19 21:43 Ordered Up ad Mel [RC] ASDIRECTED Care 08/14/19 21:43 Ordered VTE/DVT Education [RC] PER UNIT ROUTINE Care 08/14/19 21:43 Ordered Vital Signs [RC] Q4H Care 08/14/19 21:43 Ordered Consistent Carbohydrate Diet [DIET] Diet 08/15/19 Breakfast Ordered Chest 2V [CR] Stat Exams 08/14/19 17:07 Taken CBC WITH AUTO DIFF [HEME] AM Lab 08/15/19 05:11 Ordered COMPREHENSIVE METABOLIC PN,CMP [CHEM] AM Lab 08/15/19 05:11 Ordered MAGNESIUM [CHEM] AM Lab 08/15/19 05:11 Ordered Acetaminophen [Tylenol] Med 08/14/19 21:43 Ordered 650 mg PO Q4H PRN Dextrose 50% in Water Med 08/14/19 21:48 Ordered 50 ml IVPUSH ASDIRECTED PRN Enoxaparin [Lovenox] Med 08/15/19 09:00 Ordered 40 mg SUBCUT DAILY Fludrocortisone [Florinef] Med 08/15/19 09:00 Ordered 0.1 mg PO DAILY Hydrocortisone Sod Succinate [Solu-CORTEF] Med 08/14/19 21:45 Ordered 100 mg IVPUSH Q8H Insulin Lispro [HumaLOG] Med 08/14/19 22:00 Ordered See Protocol SUBCUT QIDACANDBED Lactated Ringers [Ringers, Lactated] 1,000 ml Med 08/14/19 16:45 Active IV ASDIRECTED Levothyroxine Med 08/15/19 09:00 Ordered 175 mcg PO DAILY Ondansetron [Zofran] Med 08/14/19 21:29 Active 4 mg IVPUSH Q8H PRN Resuscitation Status Routine Resus Stat 08/14/19 21:43 Ordered Medication Orders Acetaminophen (Tylenol) 650 mg PO Q4H PRN PRN Reason: Pain (Mild 1-3)/fever Dextrose/Water (Dextrose 50% In Water) 50 ml IVPUSH ASDIRECTED PRN PRN Reason: Hypoglycemia Enoxaparin Sodium (Lovenox) 40 mg SUBCUT DAILY [facility] Fludrocortisone Acetate (Florinef) 0.1 mg PO DAILY [facility] Hydrocortisone Sodium Succinate (Solu-Cortef) 100 mg IVPUSH Q8H [facility] Lactated Ringer's (Ringers, Lactated) 1,000 mls @ 150 mls/hr IV ASDIRECTED KRISH Last Admin: 08/14/19 19:22 Dose: 150 mls/hr Insulin Human Lispro (Humalog) 0 unit SUBCUT QIDACANDBED [facility]; Protocol Levothyroxine Sodium (Synthroid) 175 mcg PO ACBREAKFAST [facility] Ondansetron HCl (Zofran) 4 mg IVPUSH Q8H PRN PRN Reason: Nausea Last Admin: 08/14/19 21:36 Dose: 4 mg Assessment/Plan Comment:: Assessment * Nausea and vomiting * Likely reactive from her recent viral illness compounded by her [place]'s disease * [place]'s disease * Higher stress dosing of hydrocortisone * She did not increase her hydrocortisone when she became sick with her respiratory infection. * Leukocytosis likely stress reaction * WBC 19.8 * Elevated LFTs * AST 144, ALT 151, alkaline phosphatase 367 * Hypovolemia * Hemoglobin 16.3 consistent with hemoconcentration * Insulin-dependent diabetes * Home insulin: Lantus 35 units in the morning, Humalog 12 units before each meal * She did take her Lantus this morning, but has not been able to eat today. * Hypothyroidism * On levothyroxine 175 mcg daily * Hypertension * On lisinopril 2.5 mg daily Plan * Admit to medical floor * Hydrocortisone 100 mg IV every 8 hours * LR at 150 mL/h * Sliding scale insulin * Follow blood sugar levels closely. She is not taking well orally and we are giving her higher doses of hydrocortisone. * Adjust Lantus in the morning based on oral intake and fasting blood sugars * Hold lisinopril * Zofran 0.4 mg every 4 hours as needed nausea * Continue fludrocortisone 0.1 mg daily * Continue levothyroxine 175 mcg daily * Check TSH hemoglobin A1c in the morning * CBC, CMP, magnesium in the morning * Advance diet as tolerated * VTE prophylaxis with Lovenox * CODE STATUS: Full code * Anticipated length of stay 2 to 3 days - Mortality Measure Prognosis:: Good
[2019-08-14] MEDS: Insulin Lispro 100 Units/ML 3 ML Vial SUBCUT SCH (22:01)
[2019-08-14] MEDS: Hydrocortisone Sodium Succinate 100 MG/2 ML SDV IVPUSH SCH (22:13)
[2019-08-15] MEDS: Lactated Ringers 1,000 ML IV SCH ×3 (01:45→18:43)
[2019-08-15] MEDS: Levothyroxine 50 MCG Tab PO SCH (05:22)
[2019-08-15] MEDS: Hydrocortisone Sodium Succinate 100 MG/2 ML SDV IVPUSH SCH ×3 (05:24→21:01)
--- NOTE | 2019-08-15 06:28 | CR ---
Chest: Two views of the chest were obtained. Comparison: Prior chest x-ray of 10/10/17. Heart size and mediastinum are normal. Lungs are clear. Bony structures are unremarkable. Surgical clips are seen within the upper abdomen from prior cholecystectomy. Impression: 1. Nothing acute is seen on two-view chest x-ray. Diagnostic code #2 Study was dictated in [place] [employer] [place]
[2019-08-15 06:42] LABS: HEMOGLOBIN A1C 7.3 % (4.50-6.20)
[2019-08-15] MEDS: Insulin Lispro 100 Units/ML 3 ML Vial SUBCUT SCH ×5 (08:01→20:59)
[2019-08-15] MEDS: Fludrocortisone 0.1 MG Tab PO SCH (08:01)
[2019-08-15] MEDS: Enoxaparin 40 MG/0.4 ML Syringe SUBCUT SCH (08:02)
[2019-08-15] MEDS ORDERED: Magnesium Sulfate/Water 2 GM in Premix Bag 1 BAG IV ONE (08:36)
[2019-08-15] MEDS: Insulin Glarg,Human.Rec.Analog 100 Unit/ML SUBCUT SCH (10:41)
--- NOTE | 2019-08-15 14:18 | PCM.PN ---
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 She continues to feel very fatigued. Blood sugars are starting to increase, but she is able to hold down her entire lunch. Functional Status: Reports: Pain Controlled - Review of Systems General: Reports: Fatigue HEENT: Reports: No Symptoms Pulmonary: Reports: No Symptoms Cardiovascular: Reports: No Symptoms Gastrointestinal: Reports: No Symptoms. Denies: Vomiting Musculoskeletal: Reports: No Symptoms Psychiatric: Reports: No Symptoms - Patient Data Vitals - Most Recent: Last Vital Signs Temp 98.1 F 08/15/19 11:20 Pulse 83 08/15/19 11:20 Resp 20 08/15/19 11:20 BP 123/67 08/15/19 11:20 Pulse Ox 98 08/15/19 11:20 Weight - Most Recent: 234 lb 8 oz I&O - Last 24 Hours: Intake & Output 08/14/19 08/15/19 08/15/19 22:59 06:59 14:59 Intake Total 1819 240 Output Total 1100 Balance 719 240 Lab Results Last 24 Hours: Laboratory Results - last 24 hr 08/14/19 08/14/19 08/14/19 Range/Units 13:11 17:03 17:03 WBC (3.98-10.04) K/mm3 RBC (3.98-5.22) M/mm3 Hgb (11.2-15.7) gm/dl Hct (34.1-44.9) % MCV (79.4-94.8) fl MCH (25.6-32.2) pg MCHC (32.2-35.5) g/dl RDW Std Deviation (36.4-46.3) fL Plt Count (182-369) K/mm3 MPV (9.4-12.3) fl Neut % (Auto) (34.0-71.1) % Lymph % (Auto) (19.3-51.7) % [place] % (Auto) (4.7-12.5) % Eos % (Auto) (0.7-5.8) Baso % (Auto) (0.1-1.2) % Neut # (Auto) (1.56-6.13) K/mm3 Lymph # (Auto) (1.18-3.74) K/mm3 [place] # (Auto) (0.24-0.36) K/mm3 Eos # (Auto) (0.04-0.36) K/mm3 Baso # (Auto) (0.01-0.08) K/mm3 Manual Slide Review Abnormal smear Sodium (136-145) mEq/L Potassium (3.5-5.1) mEq/L Chloride (98-107) mEq/L Carbon Dioxide (21-32) mEq/L Anion Gap (5-15) BUN (7-18) mg/dL Creatinine (0.55-1.02) mg/dL Est Cr Clr Drug Dosing mL/min Estimated GFR (MDRD) (>60) mL/min BUN/Creatinine Ratio (14-18) Glucose (74-106) mg/dL POC Glucose (70-105) mg/dL Hemoglobin A1c (4.50-6.20) % Calcium (8.5-10.1) mg/dL Magnesium (1.8-2.4) mg/dl Total Bilirubin (0.2-1.0) mg/dL AST (15-37) U/L ALT (14-59) U/L Alkaline Phosphatase (46-116) U/L Total Protein (6.4-8.2) g/dl Albumin (3.4-5.0) g/dl Globulin gm/dL Albumin/Globulin Ratio (1-2) TSH 3rd Generation (0.358-3.74) uIU/mL Urine Color Yellow (Yellow) Urine Appearance Clear (Clear) Urine pH 7.0 (5.0-8.0) Ur Specific [place] 1.020 (1.005-1.030) Urine Protein Negative (Negative) Urine Glucose (UA) Negative (Negative) Urine Ketones Negative (Negative) Urine Occult Blood 3+ H (Negative) Urine Nitrite Negative (Negative) Urine Bilirubin Negative (Negative) Urine Urobilinogen 0.2 (0.2-1.0) Ur Leukocyte Esterase Negative (Negative) Urine RBC 5-10 H (0-5) /hpf Urine WBC 0-5 (0-5) /hpf Ur Squamous Epith Cells 0-5 (0-5) /hpf Urine Bacteria Occasional (FEW) /hpf Urine Mucus Not seen (FEW) /hpf Urine HCG, Qual Negative (NEGATIVE) 08/14/19 08/15/19 08/15/19 Range/Units 21:15 01:47 05:31 WBC 16.66 H (3.98-10.04) K/mm3 RBC 5.30 H (3.98-5.22) M/mm3 Hgb 14.6 D (11.2-15.7) gm/dl Hct 44.8 (34.1-44.9) % MCV 84.5 (79.4-94.8) fl MCH 27.5 (25.6-32.2) pg MCHC 32.6 (32.2-35.5) g/dl RDW Std Deviation 39.6 (36.4-46.3) fL Plt Count 242 (182-369) K/mm3 MPV 11.6 (9.4-12.3) fl Neut % (Auto) 84.8 H (34.0-71.1) % Lymph % (Auto) 11.3 L (19.3-51.7) % [place] % (Auto) 3.5 L (4.7-12.5) % Eos % (Auto) 0 L (0.7-5.8) Baso % (Auto) 0.2 (0.1-1.2) % Neut # (Auto) 14.13 H (1.56-6.13) K/mm3 Lymph # (Auto) 1.89 (1.18-3.74) K/mm3 [place] # (Auto) 0.58 H (0.24-0.36) K/mm3 Eos # (Auto) 0.00 L (0.04-0.36) K/mm3 Baso # (Auto) 0.03 (0.01-0.08) K/mm3 Manual Slide Review Sodium (136-145) mEq/L Potassium (3.5-5.1) mEq/L Chloride (98-107) mEq/L Carbon Dioxide (21-32) mEq/L Anion Gap (5-15) BUN (7-18) mg/dL Creatinine (0.55-1.02) mg/dL Est Cr Clr Drug Dosing mL/min Estimated GFR (MDRD) (>60) mL/min BUN/Creatinine Ratio (14-18) Glucose (74-106) mg/dL POC Glucose 101 148 H (70-105) mg/dL Hemoglobin A1c (4.50-6.20) % Calcium (8.5-10.1) mg/dL Magnesium (1.8-2.4) mg/dl Total Bilirubin (0.2-1.0) mg/dL AST (15-37) U/L ALT (14-59) U/L Alkaline Phosphatase (46-116) U/L Total Protein (6.4-8.2) g/dl Albumin (3.4-5.0) g/dl Globulin gm/dL Albumin/Globulin Ratio (1-2) TSH 3rd Generation (0.358-3.74) uIU/mL Urine Color (Yellow) Urine Appearance (Clear) Urine pH (5.0-8.0) Ur Specific [place] (1.005-1.030) Urine Protein (Negative) Urine Glucose (UA) (Negative) Urine Ketones (Negative) Urine Occult Blood (Negative) Urine Nitrite (Negative) Urine Bilirubin (Negative) Urine Urobilinogen (0.2-1.0) Ur Leukocyte Esterase (Negative) Urine RBC (0-5) /hpf Urine WBC (0-5) /hpf Ur Squamous Epith Cells (0-5) /hpf Urine Bacteria (FEW) /hpf Urine Mucus (FEW) /hpf Urine HCG, Qual (NEGATIVE) 08/15/19 08/15/19 08/15/19 Range/Units 05:31 05:31 06:47 WBC (3.98-10.04) K/mm3 RBC (3.98-5.22) M/mm3 Hgb (11.2-15.7) gm/dl Hct (34.1-44.9) % MCV (79.4-94.8) fl MCH (25.6-32.2) pg MCHC (32.2-35.5) g/dl RDW Std Deviation (36.4-46.3) fL Plt Count (182-369) K/mm3 MPV (9.4-12.3) fl Neut % (Auto) (34.0-71.1) % Lymph % (Auto) (19.3-51.7) % [place] % (Auto) (4.7-12.5) % Eos % (Auto) (0.7-5.8) Baso % (Auto) (0.1-1.2) % Neut # (Auto) (1.56-6.13) K/mm3 Lymph # (Auto) (1.18-3.74) K/mm3 [place] # (Auto) (0.24-0.36) K/mm3 Eos # (Auto) (0.04-0.36) K/mm3 Baso # (Auto) (0.01-0.08) K/mm3 Manual Slide Review Sodium 137 (136-145) mEq/L Potassium 3.9 (3.5-5.1) mEq/L Chloride 104 (98-107) mEq/L Carbon Dioxide 23 (21-32) mEq/L Anion Gap 13.9 (5-15) BUN 8 (7-18) mg/dL Creatinine 0.9 (0.55-1.02) mg/dL Est Cr Clr Drug Dosing 71.03 mL/min Estimated GFR (MDRD) > 60 (>60) mL/min BUN/Creatinine Ratio 8.9 L (14-18) Glucose 160 H (74-106) mg/dL POC Glucose 156 H (70-105) mg/dL Hemoglobin A1c 7.30 H (4.50-6.20) % Calcium 8.2 L (8.5-10.1) mg/dL Magnesium 1.7 L (1.8-2.4) mg/dl Total Bilirubin 0.7 (0.2-1.0) mg/dL AST 157 H (15-37) U/L ALT 193 H (14-59) U/L Alkaline Phosphatase 338 H (46-116) U/L Total Protein 6.5 (6.4-8.2) g/dl Albumin 2.7 L (3.4-5.0) g/dl Globulin 3.8 gm/dL Albumin/Globulin Ratio 0.7 L (1-2) TSH 3rd Generation 0.490 (0.358-3.74) uIU/mL Urine Color (Yellow) Urine Appearance (Clear) Urine pH (5.0-8.0) Ur Specific [place] (1.005-1.030) Urine Protein (Negative) Urine Glucose (UA) (Negative) Urine Ketones (Negative) Urine Occult Blood (Negative) Urine Nitrite (Negative) Urine Bilirubin (Negative) Urine Urobilinogen (0.2-1.0) Ur Leukocyte Esterase (Negative) Urine RBC (0-5) /hpf Urine WBC (0-5) /hpf Ur Squamous Epith Cells (0-5) /hpf Urine Bacteria (FEW) /hpf Urine Mucus (FEW) /hpf Urine HCG, Qual (NEGATIVE) 08/15/19 Range/Units 11:08 WBC (3.98-10.04) K/mm3 RBC (3.98-5.22) M/mm3 Hgb (11.2-15.7) gm/dl Hct (34.1-44.9) % MCV (79.4-94.8) fl MCH (25.6-32.2) pg MCHC (32.2-35.5) g/dl RDW Std Deviation (36.4-46.3) fL Plt Count (182-369) K/mm3 MPV (9.4-12.3) fl Neut % (Auto) (34.0-71.1) % Lymph % (Auto) (19.3-51.7) % [place] % (Auto) (4.7-12.5) % Eos % (Auto) (0.7-5.8) Baso % (Auto) (0.1-1.2) % Neut # (Auto) (1.56-6.13) K/mm3 Lymph # (Auto) (1.18-3.74) K/mm3 [place] # (Auto) (0.24-0.36) K/mm3 Eos # (Auto) (0.04-0.36) K/mm3 Baso # (Auto) (0.01-0.08) K/mm3 Manual Slide Review Sodium (136-145) mEq/L Potassium (3.5-5.1) mEq/L Chloride (98-107) mEq/L Carbon Dioxide (21-32) mEq/L Anion Gap (5-15) BUN (7-18) mg/dL Creatinine (0.55-1.02) mg/dL Est Cr Clr Drug Dosing mL/min Estimated GFR (MDRD) (>60) mL/min BUN/Creatinine Ratio (14-18) Glucose (74-106) mg/dL POC Glucose 264 H (70-105) mg/dL Hemoglobin A1c (4.50-6.20) % Calcium (8.5-10.1) mg/dL Magnesium (1.8-2.4) mg/dl Total Bilirubin (0.2-1.0) mg/dL AST (15-37) U/L ALT (14-59) U/L Alkaline Phosphatase (46-116) U/L Total Protein (6.4-8.2) g/dl Albumin (3.4-5.0) g/dl Globulin gm/dL Albumin/Globulin Ratio (1-2) TSH 3rd Generation (0.358-3.74) uIU/mL Urine Color (Yellow) Urine Appearance (Clear) Urine pH (5.0-8.0) Ur Specific [place] (1.005-1.030) Urine Protein (Negative) Urine Glucose (UA) (Negative) Urine Ketones (Negative) Urine Occult Blood (Negative) Urine Nitrite (Negative) Urine Bilirubin (Negative) Urine Urobilinogen (0.2-1.0) Ur Leukocyte Esterase (Negative) Urine RBC (0-5) /hpf Urine WBC (0-5) /hpf Ur Squamous Epith Cells (0-5) /hpf Urine Bacteria (FEW) /hpf Urine Mucus (FEW) /hpf Urine HCG, Qual (NEGATIVE) Richard Results Last 24 Hours: Microbiology 08/14/19 17:05 Influenza Type A Antigen Screen - Final Nasal, Unspecified NEGATIVE INFLUENZA A VIRUS AG REFERENCE RANGE: NEGATIVE Influenza Type B Antigen Screen - Final NEGATIVE INFLUENZA B VIRUS AG REFERENCE RANGE: NEGATIVE Med Orders - Current: Current Medications Acetaminophen (Tylenol) 650 mg PO Q4H PRN PRN Reason: Pain (Mild 1-3)/fever Dextrose/Water (Dextrose 50% In Water) 50 ml IVPUSH ASDIRECTED PRN PRN Reason: Hypoglycemia Enoxaparin Sodium (Lovenox) 40 mg SUBCUT DAILY [facility] Last Admin: 08/15/19 08:02 Dose: 40 mg Fludrocortisone Acetate (Florinef) 0.1 mg PO DAILY [facility] Last Admin: 08/15/19 08:01 Dose: 0.1 mg Hydrocortisone Sodium Succinate (Solu-Cortef) 100 mg IVPUSH Q8H [facility] Last Admin: 08/15/19 05:24 Dose: 100 mg Lactated Ringer's (Ringers, Lactated) 1,000 mls @ 75 mls/hr IV ASDIRECTED [facility] Insulin Glargine (Lantus) 25 unit SUBCUT DAILY [facility] Last Admin: 08/15/19 10:41 Dose: 25 units Insulin Human Lispro (Humalog) 0 unit SUBCUT QIDACANDBED [facility]; Protocol Last Admin: 08/15/19 11:14 Dose: 6 units Insulin Human Lispro (Humalog) 6 unit SUBCUT TIDAC [facility] Levothyroxine Sodium (Synthroid) 175 mcg PO ACBREAKFAST [facility] Last Admin: 08/15/19 05:22 Dose: 175 mcg Ondansetron HCl (Zofran) 4 mg IVPUSH Q8H PRN PRN Reason: Nausea Last Admin: 08/14/19 21:36 Dose: 4 mg Discontinued Medications Hydrocortisone Sodium Succinate (Solu-Cortef) 100 mg IV ONETIME ONE Stop: 08/14/19 13:44 Last Admin: 08/14/19 14:15 Dose: 100 mg Hydromorphone HCl (Dilaudid) 0.5 mg IVPUSH ONETIME ONE Stop: 08/14/19 13:44 Last Admin: 08/14/19 14:15 Dose: 0.5 mg Hydromorphone HCl (Dilaudid) 0.5 mg IVPUSH ONETIME ONE Stop: 08/14/19 19:15 Last Admin: 08/14/19 19:20 Dose: 0.5 mg Sodium Chloride (Normal Saline) 1,000 mls @ 999 mls/hr IV ASDIRECTED [facility] Last Admin: 08/14/19 13:01 Dose: 999 mls/hr Sodium Chloride (Normal Saline) 1,000 mls @ 999 mls/hr IV ONETIME ONE Stop: 08/14/19 14:45 Last Admin: 08/14/19 14:15 Dose: 999 mls/hr Lactated Ringer's (Ringers, Lactated) 1,000 mls @ 150 mls/hr IV ASDIRECTED [facility] Last Admin: 08/15/19 08:00 Dose: 150 mls/hr Magnesium Sulfate 2 gm/ Premix 50 mls @ 25 mls/hr IV ONETIME ONE Stop: 08/15/19 10:35 Last Admin: 08/15/19 09:13 Dose: 25 mls/hr Ondansetron HCl (Zofran) 4 mg IVPUSH ONETIME ONE Stop: 08/14/19 12:58 Last Admin: 08/14/19 13:01 Dose: 4 mg - Exam General: Alert, Oriented HEENT: Pupils Equal, Mucous Membr. Moist/[place] Neck: Supple Lungs: Clear to Auscultation, Normal Respiratory Effort Cardiovascular: Regular Rate, Regular Rhythm GI/Abdominal Exam: Normal Bowel Sounds, Soft, Non-Tender, No Organomegaly, No Distention Extremities: Normal Inspection, Non-Tender, No Pedal Edema Skin: Warm, Dry, Intact Wound/Incisions: Healing Well Psy/Mental Status: Alert, Normal Affect, Normal Mood Sepsis Event Note - Evaluation Sepsis Screening Result: No Definite Risk - Focused Exam Vital Signs: Vital Signs Temp Pulse Resp BP Pulse Ox 08/15/19 11:20 98.1 F 83 20 123/67 98 08/15/19 08:07 97.7 F 75 16 129/104 H 99 08/15/19 05:17 97.9 F 76 17 140/88 97 Date Exam was Performed: 08/15/19 Time Exam was Performed: 15:14 - Problem List Review Problem List Initiated/Reviewed/Updated: Yes - My Orders Last 24 Hours: My Active Orders 08/14/19 21:29 Ondansetron [Zofran] 4 mg IVPUSH Q8H PRN 08/14/19 21:43 Oxygen Therapy [RC] PRN Up ad Mel [RC] ASDIRECTED VTE/DVT Education [RC] BID Vital Signs [RC] Q4HR Acetaminophen [Tylenol] 650 mg PO Q4H PRN Resuscitation Status Routine 08/14/19 21:48 Blood Glucose Check, Bedside [RC] QIDACANDBED Dextrose 50% in Water 50 ml IVPUSH ASDIRECTED PRN 08/14/19 22:00 Hydrocortisone Sod Succinate [Solu-CORTEF] 100 mg IVPUSH Q8H Insulin Lispro [HumaLOG] See Protocol SUBCUT QIDACANDBED 08/15/19 06:00 Levothyroxine [Synthroid] 175 mcg PO ACBREAKFAST 08/15/19 09:00 Enoxaparin [Lovenox] 40 mg SUBCUT DAILY Fludrocortisone [Florinef] 0.1 mg PO DAILY 08/15/19 10:30 Insulin Glarg,Human.Rec.Analog [LantUS] 25 unit SUBCUT DAILY Lactated Ringers [Ringers, Lactated] 1,000 ml IV ASDIRECTED 08/15/19 17:00 Insulin Lispro [HumaLOG] 6 unit SUBCUT TIDAC 08/15/19 Breakfast Consistent Carbohydrate Diet [DIET] - Plan Plan:: Assessment * Nausea and vomiting * Likely reactive from 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 * Leukocytosis likely stress reaction * WBC 19.8 * Elevated LFTs * AST 144-->157, ALT 151-->193, alkaline phosphatase 367-->338 * Hypovolemia -resolved * Insulin-dependent diabetes * Home insulin: Lantus 35 units in the morning, Humalog 12 units before each meal * Blood sugars are starting to increase consistent with increase in steroids and increase in p.o. intake. * Hypothyroidism * On levothyroxine 175 mcg daily * Hypertension * On lisinopril 2.5 mg daily Plan * Admit to medical floor * Continue hydrocortisone 100 mg IV every 8 hours * LR at 75 mL/h * Sliding scale insulin * Follow blood sugar levels closely. She is not taking well orally and we are giving her higher doses of hydrocortisone. * Lantus 25 units daily * Hold lisinopril * Zofran 0.4 mg every 8 hours as needed nausea * Continue fludrocortisone 0.1 mg daily * Continue levothyroxine 175 mcg daily * Check TSH hemoglobin A1c in the morning * CBC, CMP, magnesium in the morning * Advance diet as tolerated * VTE prophylaxis with Lovenox * CODE STATUS: Full code * Anticipated length of stay 2 to 3 days
[2019-08-15] MEDS ORDERED: Insulin Lispro 100 Units/ML 3 ML Vial SUBCUT ONE (15:00)
[2019-08-16] MEDS: Levothyroxine 50 MCG Tab PO SCH (07:25)
[2019-08-16] MEDS: Hydrocortisone Sodium Succinate 100 MG/2 ML SDV IVPUSH SCH ×2 (07:25→19:38)
[2019-08-16] MEDS: Lactated Ringers 1,000 ML IV SCH (07:28)
[2019-08-16] MEDS: Insulin Lispro 100 Units/ML 3 ML Vial SUBCUT SCH ×7 (07:29→21:30)
[2019-08-16] MEDS: Fludrocortisone 0.1 MG Tab PO SCH (08:38)
[2019-08-16] MEDS: Insulin Glarg,Human.Rec.Analog 100 Unit/ML SUBCUT SCH (08:39)
[2019-08-16] MEDS: Enoxaparin 40 MG/0.4 ML Syringe SUBCUT SCH (08:40)
[2019-08-16] MEDS ORDERED: Insulin Glarg,Human.Rec.Analog 100 Unit/ML SUBCUT SCH (09:00)
--- NOTE | 2019-08-16 11:48 | PCM.PN ---
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 She still has fatigue but no nausea or vomiting. - Review of Systems General: Reports: Fatigue HEENT: Reports: No Symptoms Pulmonary: Reports: No Symptoms Cardiovascular: Reports: No Symptoms Gastrointestinal: Reports: No Symptoms Musculoskeletal: Reports: No Symptoms - Patient Data Vitals - Most Recent: Last Vital Signs Temp 98.2 F 08/16/19 08:36 Pulse 69 08/16/19 08:36 Resp 16 08/16/19 08:36 BP 153/69 H 08/16/19 08:36 Pulse Ox 96 08/16/19 08:36 Weight - Most Recent: 238 lb 14.4 oz I&O - Last 24 Hours: Intake & Output 08/15/19 08/16/19 08/16/19 22:59 06:59 14:59 Intake Total 2145 1800 480 Output Total 1100 1300 Balance 1045 500 480 Lab Results Last 24 Hours: Laboratory Results - last 24 hr 08/15/19 08/15/19 08/15/19 Range/Units 14:49 16:58 20:54 WBC (3.98-10.04) K/mm3 RBC (3.98-5.22) M/mm3 Hgb (11.2-15.7) gm/dl Hct (34.1-44.9) % MCV (79.4-94.8) fl MCH (25.6-32.2) pg MCHC (32.2-35.5) g/dl RDW Std Deviation (36.4-46.3) fL Plt Count (182-369) K/mm3 MPV (9.4-12.3) fl Neut % (Auto) (34.0-71.1) % Lymph % (Auto) (19.3-51.7) % [place] % (Auto) (4.7-12.5) % Eos % (Auto) (0.7-5.8) Baso % (Auto) (0.1-1.2) % Neut # (Auto) (1.56-6.13) K/mm3 Lymph # (Auto) (1.18-3.74) K/mm3 [place] # (Auto) (0.24-0.36) K/mm3 Eos # (Auto) (0.04-0.36) K/mm3 Baso # (Auto) (0.01-0.08) K/mm3 Sodium (136-145) mEq/L Potassium (3.5-5.1) mEq/L Chloride (98-107) mEq/L Carbon Dioxide (21-32) mEq/L Anion Gap (5-15) BUN (7-18) mg/dL Creatinine (0.55-1.02) mg/dL Est Cr Clr Drug Dosing mL/min Estimated GFR (MDRD) (>60) mL/min BUN/Creatinine Ratio (14-18) Glucose (74-106) mg/dL POC Glucose 228 H 144 H 238 H (70-105) mg/dL Calcium (8.5-10.1) mg/dL Magnesium (1.8-2.4) mg/dl Total Bilirubin (0.2-1.0) mg/dL AST (15-37) U/L ALT (14-59) U/L Alkaline Phosphatase (46-116) U/L Total Protein (6.4-8.2) g/dl Albumin (3.4-5.0) g/dl Globulin gm/dL Albumin/Globulin Ratio (1-2) 08/16/19 08/16/19 08/16/19 Range/Units 07:24 08:35 08:35 WBC 14.29 H (3.98-10.04) K/mm3 RBC 5.16 (3.98-5.22) M/mm3 Hgb 14.3 (11.2-15.7) gm/dl Hct 43.4 (34.1-44.9) % MCV 84.1 (79.4-94.8) fl MCH 27.7 (25.6-32.2) pg MCHC 32.9 (32.2-35.5) g/dl RDW Std Deviation 39.2 (36.4-46.3) fL Plt Count 227 (182-369) K/mm3 MPV 11.6 (9.4-12.3) fl Neut % (Auto) 70.6 (34.0-71.1) % Lymph % (Auto) 22.2 (19.3-51.7) % [place] % (Auto) 6.8 (4.7-12.5) % Eos % (Auto) 0.1 L (0.7-5.8) Baso % (Auto) 0.1 (0.1-1.2) % Neut # (Auto) 10.09 H (1.56-6.13) K/mm3 Lymph # (Auto) 3.17 (1.18-3.74) K/mm3 [place] # (Auto) 0.97 H (0.24-0.36) K/mm3 Eos # (Auto) 0.01 L (0.04-0.36) K/mm3 Baso # (Auto) 0.02 (0.01-0.08) K/mm3 Sodium 140 (136-145) mEq/L Potassium 4.0 (3.5-5.1) mEq/L Chloride 105 (98-107) mEq/L Carbon Dioxide 26 (21-32) mEq/L Anion Gap 13.0 (5-15) BUN 13 (7-18) mg/dL Creatinine 0.9 (0.55-1.02) mg/dL Est Cr Clr Drug Dosing 71.03 mL/min Estimated GFR (MDRD) > 60 (>60) mL/min BUN/Creatinine Ratio 14.4 (14-18) Glucose 152 H (74-106) mg/dL POC Glucose 145 H (70-105) mg/dL Calcium 8.6 (8.5-10.1) mg/dL Magnesium 1.9 (1.8-2.4) mg/dl Total Bilirubin 0.4 (0.2-1.0) mg/dL AST 58 H (15-37) U/L ALT 133 H (14-59) U/L Alkaline Phosphatase 276 H (46-116) U/L Total Protein 6.4 (6.4-8.2) g/dl Albumin 2.8 L (3.4-5.0) g/dl Globulin 3.6 gm/dL Albumin/Globulin Ratio 0.8 L (1-2) 08/16/19 Range/Units 11:18 WBC (3.98-10.04) K/mm3 RBC (3.98-5.22) M/mm3 Hgb (11.2-15.7) gm/dl Hct (34.1-44.9) % MCV (79.4-94.8) fl MCH (25.6-32.2) pg MCHC (32.2-35.5) g/dl RDW Std Deviation (36.4-46.3) fL Plt Count (182-369) K/mm3 MPV (9.4-12.3) fl Neut % (Auto) (34.0-71.1) % Lymph % (Auto) (19.3-51.7) % [place] % (Auto) (4.7-12.5) % Eos % (Auto) (0.7-5.8) Baso % (Auto) (0.1-1.2) % Neut # (Auto) (1.56-6.13) K/mm3 Lymph # (Auto) (1.18-3.74) K/mm3 [place] # (Auto) (0.24-0.36) K/mm3 Eos # (Auto) (0.04-0.36) K/mm3 Baso # (Auto) (0.01-0.08) K/mm3 Sodium (136-145) mEq/L Potassium (3.5-5.1) mEq/L Chloride (98-107) mEq/L Carbon Dioxide (21-32) mEq/L Anion Gap (5-15) BUN (7-18) mg/dL Creatinine (0.55-1.02) mg/dL Est Cr Clr Drug Dosing mL/min Estimated GFR (MDRD) (>60) mL/min BUN/Creatinine Ratio (14-18) Glucose (74-106) mg/dL POC Glucose 245 H (70-105) mg/dL Calcium (8.5-10.1) mg/dL Magnesium (1.8-2.4) mg/dl Total Bilirubin (0.2-1.0) mg/dL AST (15-37) U/L ALT (14-59) U/L Alkaline Phosphatase (46-116) U/L Total Protein (6.4-8.2) g/dl Albumin (3.4-5.0) g/dl Globulin gm/dL Albumin/Globulin Ratio (1-2) Med Orders - Current: Current Medications Acetaminophen (Tylenol) 650 mg PO Q4H PRN PRN Reason: Pain (Mild 1-3)/fever Dextrose/Water (Dextrose 50% In Water) 50 ml IVPUSH ASDIRECTED PRN PRN Reason: Hypoglycemia Enoxaparin Sodium (Lovenox) 40 mg SUBCUT DAILY [facility] Last Admin: 08/16/19 08:40 Dose: 40 mg Fludrocortisone Acetate (Florinef) 0.1 mg PO DAILY [facility] Last Admin: 08/16/19 08:38 Dose: 0.1 mg Hydrocortisone Sodium Succinate (Solu-Cortef) 100 mg IVPUSH Q12H [facility] Stop: 08/17/19 07:01 Insulin Glargine (Lantus) 25 unit SUBCUT DAILY [facility] Last Admin: 08/16/19 08:39 Dose: 25 units Insulin Human Lispro (Humalog) 0 unit SUBCUT QIDACANDBED [facility]; Protocol Last Admin: 08/16/19 07:29 Dose: Not Given Insulin Human Lispro (Humalog) 6 unit SUBCUT TIDAC [facility] Last Admin: 08/16/19 08:38 Dose: 6 units Levothyroxine Sodium (Synthroid) 175 mcg PO ACBREAKFAST [facility] Last Admin: 08/16/19 07:25 Dose: 175 mcg Ondansetron HCl (Zofran) 4 mg IVPUSH Q8H PRN PRN Reason: Nausea Last Admin: 08/14/19 21:36 Dose: 4 mg Discontinued Medications Hydrocortisone Sodium Succinate (Solu-Cortef) 100 mg IV ONETIME ONE Stop: 08/14/19 13:44 Last Admin: 08/14/19 14:15 Dose: 100 mg Hydrocortisone Sodium Succinate (Solu-Cortef) 100 mg IVPUSH Q8H [facility] Last Admin: 08/16/19 07:25 Dose: 100 mg Hydromorphone HCl (Dilaudid) 0.5 mg IVPUSH ONETIME ONE Stop: 08/14/19 13:44 Last Admin: 08/14/19 14:15 Dose: 0.5 mg Hydromorphone HCl (Dilaudid) 0.5 mg IVPUSH ONETIME ONE Stop: 08/14/19 19:15 Last Admin: 08/14/19 19:20 Dose: 0.5 mg Sodium Chloride (Normal Saline) 1,000 mls @ 999 mls/hr IV ASDIRECTED [facility] Last Admin: 08/14/19 13:01 Dose: 999 mls/hr Sodium Chloride (Normal Saline) 1,000 mls @ 999 mls/hr IV ONETIME ONE Stop: 08/14/19 14:45 Last Admin: 08/14/19 14:15 Dose: 999 mls/hr Lactated Ringer's (Ringers, Lactated) 1,000 mls @ 150 mls/hr IV ASDIRECTED [facility] Last Admin: 08/15/19 08:00 Dose: 150 mls/hr Magnesium Sulfate 2 gm/ Premix 50 mls @ 25 mls/hr IV ONETIME ONE Stop: 08/15/19 10:35 Last Admin: 08/15/19 09:13 Dose: 25 mls/hr Lactated Ringer's (Ringers, Lactated) 1,000 mls @ 75 mls/hr IV ASDIRECTED [facility] Last Admin: 08/16/19 07:28 Dose: 75 mls/hr Insulin Human Lispro (Humalog) 3 unit SUBCUT ONETIME ONE Stop: 08/15/19 15:01 Last Admin: 08/15/19 14:59 Dose: 3 units Ondansetron HCl (Zofran) 4 mg IVPUSH ONETIME ONE Stop: 08/14/19 12:58 Last Admin: 08/14/19 13:01 Dose: 4 mg - Exam Quality Assessment: No: Supplemental Oxygen General: Alert, Oriented HEENT: Pupils Equal, Pupils Reactive, EOMI, Mucous Membr. Moist/[employer] Neck: Supple Lungs: Normal Respiratory Effort, Crackles Cardiovascular: Regular Rate, Regular Rhythm GI/Abdominal Exam: Normal Bowel Sounds, Soft, Non-Tender, No Distention Back Exam: Normal Inspection Extremities: Normal Inspection, Normal Range of Motion, Non-Tender, No Pedal Edema Skin: Warm, Dry, Intact Neurological: No New Focal Deficit Psy/Mental Status: Alert, Normal Affect, Normal Mood Sepsis Event Note - Evaluation Sepsis Screening Result: No Definite Risk - Focused Exam Vital Signs: Vital Signs Temp Pulse Resp BP Pulse Ox 08/16/19 08:36 98.2 F 69 16 153/69 H 96 08/16/19 02:04 96.6 F 64 16 150/74 H 98 Date Exam was Performed: 08/16/19 Time Exam was Performed: 11:43 - Problem List Review Problem List Initiated/Reviewed/Updated: Yes - My Orders Last 24 Hours: My Active Orders 08/15/19 17:00 Insulin Lispro [HumaLOG] 6 unit SUBCUT TIDAC 08/16/19 19:00 Hydrocortisone Sod Succinate [Solu-CORTEF] 100 mg IVPUSH Q12H - Plan Plan:: Assessment * Nausea and vomiting * Likely reactive from her 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 * Leukocytosis likely stress reaction * WBC 19.8 * Elevated LFTs - improving * AST 144-->157-->58, ALT 151-->193-->133, alkaline phosphatase 367-->338-->276 * Hypovolemia -resolved * 6 lbs weight gain since admission * Insulin-dependent diabetes * Home insulin: Lantus 35 units in the morning, Humalog 12 units before each meal * Blood sugars improved on Lantus 25 units daily, Humalog 6 units PCmeals, and SSI * Hypothyroidism * On levothyroxine 175 mcg daily * Hypertension * On lisinopril 2.5 mg daily Plan * Admit to medical floor * Decrease hydrocortisone from 100 mg IV every 12 hours x 2 doses then stop and return to normal home dose. * Stop IV fluids secondary to weight gain and small amount of crackles in lung bases. * Follow blood sugar levels closely. * Restart lisinopril 2.5 mg tonight. * Zofran 0.4 mg every 8 hours as needed nausea * Continue fludrocortisone 0.1 mg daily * Continue levothyroxine 175 mcg daily * Diabetic diet * VTE prophylaxis with Lovenox * CODE STATUS: Full code * Anticipated length of stay 2 to 3 days
[2019-08-16] MEDS ORDERED: Lisinopril 2.5 MG Tab PO SCH (21:00)
[2019-08-17] MEDS: Levothyroxine 50 MCG Tab PO SCH (06:18)
[2019-08-17] MEDS: Hydrocortisone Sodium Succinate 100 MG/2 ML SDV IVPUSH SCH (06:18)
[2019-08-17] MEDS: Insulin Lispro 100 Units/ML 3 ML Vial SUBCUT SCH ×4 (06:22→11:29)
[2019-08-17] MEDS: Fludrocortisone 0.1 MG Tab PO SCH (08:05)
[2019-08-17] MEDS: Enoxaparin 40 MG/0.4 ML Syringe SUBCUT SCH (08:05)
[2019-08-17] MEDS: Insulin Glarg,Human.Rec.Analog 100 Unit/ML SUBCUT SCH (08:09)
[2019-08-17 08:15] VITALS: BP 153/88; PULSE 81
[2019-08-17] MEDS ORDERED: Hydrocortisone 20 MG Tab PO SCH (12:00)
--- NOTE | 2019-08-17 12:12 | PCM.DCSUM1 ---
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 Patient states that over the last week she has been out of school because of an upper respiratory tract infection. She states that she was fatigued and spent most of the week trying to sleep it off. She did not increase her hydrocortisone. This morning she woke up not feeling well, went back to bed, when she woke up took her insulin then started vomiting bile. She vomited 5-6 times and then proceeded to the emergency room at approximately 1300. Patient denies any recent fever or chills. She had some lower abdominal cramping secondary to starting her menstrual cycle yesterday. She states that this current nausea and vomiting, without diarrhea, is consistent to when she starts having problems with her Hertford's. Patient is on hydrocortisone 10 mg in the morning and 20 mg in the evening and fludrocortisone 0.1 mg daily. Diagnosis: Stroke: No - Discharge Data Discharge Date: 08/17/19 Discharge Disposition: Home, Self-Care 01 Condition: Good - Referral to Home Health Primary Care Physician: Kosta Pagan MD - Discharge Diagnosis/Problem(s) (1) Adrenal crisis SNOMED Code(s): 012114749, 447783274 ICD Code: E27.2 - ADDISONIAN CRISIS Status: Acute Current Visit: Yes (2) Vomiting SNOMED Code(s): 367005042 ICD Code: R11.10 - VOMITING, UNSPECIFIED Status: Acute Current Visit: Yes (3) Addisons disease SNOMED Code(s): 162955350 ICD Code: E27.1 - PRIMARY ADRENOCORTICAL INSUFFICIENCY Status: Chronic Priority: Low Current Visit: Yes (4) Insulin dependent diabetes mellitus SNOMED Code(s): 18358211 ICD Code: E11.9 - TYPE 2 DIABETES MELLITUS WITHOUT COMPLICATIONS; Z79.4 - MBA INTER[employer]IP (CURRENT) USE OF INSULIN Status: Chronic Priority: Low Current Visit: Yes (5) Hypothyroid SNOMED Code(s): 78423725 ICD Code: E03.9 - HYPOTHYROIDISM, UNSPECIFIED Status: Acute Current Visit : No Qualifiers: Hypothyroidism type: unspecified Qualified Code(s): E03.9 - Hypothyroidism , unspecified - Patient Summary/Data Hospital Course: Patient was found to have adrenal crisis in the ED. Was admitted to the hospital on high dose hydrocortisone Symptoms improved and resolved Discharged home to follow up with PCP - Discharge Plan Home Medications: Home Meds Levothyroxine Sodium [Synthroid] 175 mcg PO DAILY 11/18/15 [History] Fludrocortisone [Florinef] 0.1 mg PO DAILY #30 tablet 11/20/15 [Rx] Hydrocortisone 0.5 tab PO ASDIRECTED PRN 10/10/17 [History] Hydrocortisone [Cortef] 1 tab PO DAILY 10/10/17 [History] Hydrocortisone [Cortef] 2 tab PO QAM 10/10/17 [History] Insulin Glarg,Human.Rec.Analog [Lantus] 35 units SUBCUT DAILY 10/10/17 [History] Lisinopril 2.5 mg PO DAILY 10/10/17 [History] Forms: ED Department Discharge Referrals: Kosta Pagan MD [Primary Care Provider] - - Discharge Summary/Plan Comment DC Time >30 min.: Yes - General Info Date of Service: 08/17/19 Subjective Update: Feeling OK Slept OK Tolerating diet Ambulating No nausea, abdominal pain, vomiting or any other complaints - Patient Data Vitals - Most Recent: Last Vital Signs Temp 98.1 F 08/17/19 08:00 Pulse 81 08/17/19 08:00 Resp 16 08/17/19 08:00 BP 153/88 H 08/17/19 08:00 Pulse Ox 92 L 08/17/19 08:00 Weight - Most Recent: 109.225 kg - Exam General: Reports: Alert, Oriented, Cooperative, No Acute Distress HEENT: Reports: EOMI, Mucous Membr. Moist/[place] Neck: Reports: Supple, Trachea Midline, No JVD, No Thyromegaly, +2 Carotid Pulse wo Bruit. Denies: Lymphadenopathy Lungs: Reports: Clear to Auscultation, Normal Respiratory Effort. Denies: Crackles, Rales, Rhonchi, Wheezing Cardiovascular: Reports: Regular Rate, Regular Rhythm. Denies: Tachycardia, Murmurs, Gallops, Rubs GI/Abdominal Exam: Normal Bowel Sounds, Soft, Distended. No: Guarding, Rigid, Rebound, Tender Back Exam: Reports: Normal Inspection. Denies: CVA Tenderness (L), CVA Tenderness (R) Extremities: Normal Inspection, Normal Range of Motion, Non-Tender, No Pedal Edema, Normal Capillary Refill Psy/Mental Status: Reports: Alert, Normal Affect, Normal Mood
[2019-08-18] MEDS ORDERED: Hydrocortisone 20 MG Tab PO SCH (08:00)
== END 2019-08-17 14:05 | disposition home or self-care (01) ==
LOC: JD.ED 12:42 → JD.MS 19:24
PROVIDERS: ADMIT Family Medicine; ATTEND Family Medicine
DX: E27.2 Addisonian crisis (principal); E27.1 Primary adrenocortical insufficiency; E03.9 Hypothyroidism, unspecified; E11.9 Type 2 diabetes mellitus without complications; E86.1 Hypovolemia; I10 Essential (primary) hypertension; R79.89 Other specified abnormal findings of blood chemistry; D72.829 Elevated white blood cell count, unspecified; Z79.4 Long term (current) use of insulin; Z79.52 Long term (current) use of systemic steroids; Z79.899 Other long term (current) drug therapy; Z87.891 Personal history of nicotine dependence
CPT/HCPCS: 36415; 71046; 74177; 80053; 81001; 81025; 82962; 83036; 83735; 84443; 85025; 86140; 87804; 96361; 96374; 96375; 96376; 99285; A9270; J1170; J1650; J1720; J1815; J2405; J3475; J7030; J7120; 96365; 96366; 96372; G0378

== ENCOUNTER 2021-04-04 06:16 | Inpatient (IN) | payer BC ==
[2021-04-04] MEDS ORDERED: Sodium Chloride 0.9% 10 ML Syringe FLUSH PRN (07:06)
[2021-04-04] MEDS ORDERED: Ondansetron 4 MG/2 ML SDV IVPUSH ONE (07:06)
[2021-04-04] MEDS ORDERED: methylPREDNISolone Sodium Succinate 125 MG/2 ML SDV IVPUSH ONE (07:08)
[2021-04-04] MEDS ORDERED: Sodium Chloride 0.9% 1,000 ML IV SCH (07:15)
--- NOTE | 2021-04-04 08:01 | EDM.PDOC ---
ED HPI GENERAL MEDICAL PROBLEM - General Chief Complaint: General Stated Complaint: DIABETIC/LIGHT HEADED/VOMITING Time Seen by Provider: 04/04/21 06:55 Source of Information: Reports: Patient History Limitations: Reports: No Limitations - History of Present Illness INITIAL COMMENTS - FREE TEXT/NARRATIVE: The patient presents with a cough, body aches and headache. She said his has been going on for about a week. She has Higginson's disease and she tried to up her steroids to deal with the illness but it has not helped. She started having nausea and vomiting this morning. She is worried she may have COVID 19. She did not get immunized. She is also worried she is in an Higginson's crisis because of this. She has no fever but she does have chills and generalized weakness. She has no chest pain but she has shortness of breath. She has no abdominal pain or diarrhea. Onset: Gradual Duration: Week(s): Location: Reports: Generalized Quality: Reports: Ache Severity: Moderate Improves with: Reports: None Worsens with: Reports: None Associated Symptoms: Reports: Cough, Fever/Chills, Nausea/Vomiting. Denies: Chest Pain, Headaches, Shortness of Breath Headache Pain Score (Numeric/FACES): 5 - Related Data Allergies Allergy/AdvReac Type Severity Reaction Status Date / Time No Known Allergies Allergy Verified 08/14/19 20:51 Home Meds: Home Meds Levothyroxine Sodium [Synthroid] 175 mcg PO DAILY 11/18/15 [History] Fludrocortisone [Florinef] 0.1 mg PO DAILY #30 tablet 11/20/15 [Rx] Hydrocortisone 0.5 tab PO ASDIRECTED PRN 10/10/17 [History] Hydrocortisone [Cortef] 1 tab PO DAILY 10/10/17 [History] Hydrocortisone [Cortef] 2 tab PO QAM 10/10/17 [History] Insulin Glarg,Human.Rec.Analog [Lantus] 35 units SUBCUT DAILY 10/10/17 [History] Insulin Aspart [NovoLOG] 04/04/21 [History] Past Medical History HEENT History: Reports: Impaired Vision, Other (See Below) Other HEENT History: pt wears glasses HARNESS CUTTER History: Reports: Other HARNESS CUTTER History: 1 - vaginal Endocrine/Metabolic History: Reports: Higginson's Disease, Diabetes, Type II, Hypothyroidism, IDDM - Infectious Disease History Infectious Disease History: Reports: Chicken Pox, Influenza - Past Surgical History HEENT Surgical History: Reports: None GI Surgical History: Reports: Appendectomy, Cholecystectomy Social & Family History - Family History Family Medical History: No Pertinent Family History - Tobacco Use Tobacco Use Status *Q: Never Tobacco User - Caffeine Use Caffeine Use: Reports: Coffee, Soda Other Caffeine Use: coffee one cup a diet, couple of diet mt dews a day 2-3 ED ROS GENERAL - Review of Systems Review Of Systems: See Below Constitutional: Reports: Chills, Malaise, Weakness, Fatigue. Denies: Fever HEENT: Reports: No Symptoms Respiratory: Reports: Cough. Denies: Shortness of Breath Cardiovascular: Reports: No Symptoms Endocrine: Reports: No Symptoms GI/Abdominal: Reports: Nausea, Vomiting. Denies: Abdominal Pain : Reports: No Symptoms Musculoskeletal: Reports: No Symptoms ED EXAM, GENERAL - Physical Exam Exam: See Below Exam Limited By: No Limitations General Appearance: Alert, No Apparent Distress Ears: Normal External Exam Nose: Normal Inspection Head: Atraumatic, Normocephalic Neck: Normal Inspection Respiratory/Chest: No Respiratory Distress, Lungs Clear, Normal Breath Sounds Cardiovascular: Regular Rate, Rhythm, No Edema, No Murmur GI/Abdominal: Soft, Non-Tender, No Organomegaly, No Mass Back Exam: Normal Inspection Extremities: Normal Inspection Neurological: Alert, Oriented, No Motor/Sensory Deficits Course - Vital Signs Last Recorded V/S: Last Vital Signs Temp 98.6 F 04/04/21 07:38 Pulse 98 04/04/21 07:38 Resp 16 04/04/21 07:38 BP 159/60 H 04/04/21 07:38 Pulse Ox 95 04/04/21 07:38 - Orders/Labs/Meds Orders: Active Orders 24 hr Category Date Time Status Cardiac Monitoring [RC] . DIRECTED Care 04/04/21 07:01 Active Peripheral IV Care [RC] . DIRECTED Care 04/04/21 07:08 Active INR,PT,PROTHROMBIN TIME [COAG] Stat Lab 04/04/21 07:06 Ordered LACTIC ACID [CHEM] Stat Lab 04/04/21 07:06 Ordered PTT,PARTIAL THROMBOPLSTIN TIME [COAG] Stat Lab 04/04/21 07:06 Ordered Sodium Chloride 0.9% [Normal Saline] 1,000 ml Med 04/04/21 07:15 Active IV .BOLUS Sodium Chloride 0.9% [Normal Saline] 1,000 ml Med 04/04/21 09:30 Active IV ASDIRECTED Sodium Chloride 0.9% [Saline Flush] Med 04/04/21 07:06 Active 10 ml FLUSH ASDIRECTED PRN ED Antiemetic Medication Reflex [OM.PC] Stat Ot 04/04/21 07:01 Ordered Peripheral IV Insertion Adult [OM.PC] Stat Ot 04/04/21 07:01 Ordered Medication Orders Sodium Chloride (Normal Saline) 1,000 mls @ 1,000 mls/hr IV .BOLUS KRISH Last Admin: 04/04/21 07:34 Dose: 1,000 mls/hr Documented by: KRISTINE Sodium Chloride (Normal Saline) 1,000 mls @ 150 mls/hr IV ASDIRECTED KRISH Last Admin: 04/04/21 09:28 Dose: 150 mls/hr Documented by: KRISTINE Sodium Chloride (Sodium Chloride 0.9% 10 Ml Syringe) 10 ml FLUSH ASDIRECTED PRN PRN Reason: Keep Vein Open Last Admin: 04/04/21 07:30 Dose: 10 ml Documented by: KRISTINE Labs: Laboratory Tests 04/04/21 04/04/21 04/04/21 Range/Units 06:25 07:51 07:51 WBC 6.31 (3.98-10.04) K/mm3 RBC 5.84 H (3.98-5.22) M/mm3 Hgb 16.1 H D (11.2-15.7) gm/dl Hct 49.2 H (34.1-44.9) % MCV 84.2 (79.4-94.8) fl MCH 27.6 (25.6-32.2) pg MCHC 32.7 (32.2-35.5) g/dl RDW Std Deviation 41.0 (36.4-46.3) fL Plt Count 124 L D (182-369) K/mm3 MPV 11.4 (9.4-12.3) fl Neut % (Auto) 47.8 (34.0-71.1) % Lymph % (Auto) 42.8 (19.3-51.7) % Grady % (Auto) 8.2 (4.7-12.5) % Eos % (Auto) 0.5 L (0.7-5.8) Baso % (Auto) 0.5 (0.1-1.2) % Neut # (Auto) 3.02 (1.56-6.13) K/mm3 Lymph # (Auto) 2.70 (1.18-3.74) K/mm3 Grady # (Auto) 0.52 H (0.24-0.36) K/mm3 Eos # (Auto) 0.03 L (0.04-0.36) K/mm3 Baso # (Auto) 0.03 (0.01-0.08) K/mm3 Sodium 138 (136-145) mEq/L Potassium 3.4 L (3.5-5.1) mEq/L Chloride 102 (98-107) mEq/L Carbon Dioxide 25 (21-32) mEq/L Anion Gap 14.4 (5-15) BUN 9 (7-18) mg/dL Creatinine 1.1 H (0.55-1.02) mg/dL Est Cr Clr Drug Dosing 56.94 mL/min Estimated GFR (MDRD) 54 (>60) mL/min BUN/Creatinine Ratio 8.2 L (14-18) Glucose 80 (70-99) mg/dL POC Glucose 86 (70-99) mg/dL Calcium 7.9 L (8.5-10.1) mg/dL Magnesium 1.6 L (1.8-2.4) mg/dL Total Bilirubin 0.3 (0.2-1.0) mg/dL AST 36 (15-37) U/L ALT 51 (14-59) U/L Alkaline Phosphatase 269 H (46-116) U/L C-Reactive Protein 3.1 H* (<1.0) mg/dL Total Protein 6.9 (6.4-8.2) g/dl Albumin 3.1 L (3.4-5.0) g/dl Globulin 3.8 gm/dL Albumin/Globulin Ratio 0.8 L (1-2) SARS-CoV-2 RNA (LAURITA) (NEGATIVE) 04/04/21 Range/Units 07:55 WBC (3.98-10.04) K/mm3 RBC (3.98-5.22) M/mm3 Hgb (11.2-15.7) gm/dl Hct (34.1-44.9) % MCV (79.4-94.8) fl MCH (25.6-32.2) pg MCHC (32.2-35.5) g/dl RDW Std Deviation (36.4-46.3) fL Plt Count (182-369) K/mm3 MPV (9.4-12.3) fl Neut % (Auto) (34.0-71.1) % Lymph % (Auto) (19.3-51.7) % Grady % (Auto) (4.7-12.5) % Eos % (Auto) (0.7-5.8) Baso % (Auto) (0.1-1.2) % Neut # (Auto) (1.56-6.13) K/mm3 Lymph # (Auto) (1.18-3.74) K/mm3 Grady # (Auto) (0.24-0.36) K/mm3 Eos # (Auto) (0.04-0.36) K/mm3 Baso # (Auto) (0.01-0.08) K/mm3 Sodium (136-145) mEq/L Potassium (3.5-5.1) mEq/L Chloride (98-107) mEq/L Carbon Dioxide (21-32) mEq/L Anion Gap (5-15) BUN (7-18) mg/dL Creatinine (0.55-1.02) mg/dL Est Cr Clr Drug Dosing mL/min Estimated GFR (MDRD) (>60) mL/min BUN/Creatinine Ratio (14-18) Glucose (70-99) mg/dL POC Glucose (70-99) mg/dL Calcium (8.5-10.1) mg/dL Magnesium (1.8-2.4) mg/dL Total Bilirubin (0.2-1.0) mg/dL AST (15-37) U/L ALT (14-59) U/L Alkaline Phosphatase (46-116) U/L C-Reactive Protein (<1.0) mg/dL Total Protein (6.4-8.2) g/dl Albumin (3.4-5.0) g/dl Globulin gm/dL Albumin/Globulin Ratio (1-2) SARS-CoV-2 RNA (LAURITA) Positive H (NEGATIVE) Meds: Medications Generic Name Dose Route Start Last Admin Trade Name Freq PRN Reason Stop Dose Admin Sodium Chloride 1,000 mls @ 1,000 mls/hr 04/04/21 07:15 04/04/21 07:34 Normal Saline IV 1,000 mls/hr .BOLUS KRISH Administration Sodium Chloride 1,000 mls @ 150 mls/hr 04/04/21 09:30 04/04/21 09:28 Normal Saline IV 150 mls/hr ASDIRECTED KRISH Administration Sodium Chloride 10 ml 04/04/21 07:06 04/04/21 07:30 Sodium Chloride 0.9% 10 Ml Syringe FLUSH 10 ml ASDIRECTED PRN Administration Keep Vein Open Discontinued Medications Generic Name Dose Route Start Last Admin Trade Name Freq PRN Reason Stop Dose Admin Ketorolac Tromethamine 30 mg 04/04/21 09:09 04/04/21 09:23 Ketorolac 30 Mg/Ml Sdv IVPUSH 04/04/21 09:10 30 mg ONETIME ONE Administration Methylprednisolone Sodium Succinate 125 mg 04/04/21 07:08 04/04/21 07:32 Methylprednisolone Sodium Succinate 125 Mg/2 Ml Sdv IVPUSH 04/04/21 07:09 125 mg ONETIME ONE Administration Ondansetron HCl 4 mg 04/04/21 07:06 04/04/21 07:30 Ondansetron 4 Mg/2 Ml Sdv IVPUSH 04/04/21 07:07 4 mg ONETIME ONE Administration - Re-Assessments/Exams Free Text/Narrative Re-Assessment/Exam: 04/04/21 08:01 I ordered an IV NS 1L bolus, zofran 4mg IV, solu-medrol 125mg IV, labs, CXR and COVID 19 test. 04/04/21 09:51 Her CXR shows slightly increased central lung markings which most likely relate to technique if patient has no symptoms to suggest bronchitis. Nothing acute is otherwise seen on portable chest x-ray. Her WBC is normal. Her Hgb was elevated at 16.1. Her K was a little low at 3.4. Her creatinine was elevated at 1.1. Her magnesium was a little low at 1.6. Her alk phos was elevated at 269. Her CRP is elevated at 3.1. She is COVID 19 positive. I feel she needs to be admitted. She is in an Higginson's crisis and she has COVID 19. She may also have the start of COVID pneumonia. Her oxygen saturations are normal now. I talked to Dr Carr our hospitalist and he will have [facility] come see the patient. Departure - Departure Time of Disposition: 09:55 Disposition: Admitted As Inpatient 68 Condition: Fair Clinical Impression: COVID-19, Addisons disease, Adrenal crisis - Discharge Information Referrals: Kosta Pagan MD [Primary Care Provider] - Forms: ED Department Discharge Sepsis Event Note (ED) - Evaluation Sepsis Screening Result: No Definite Risk - Focused Exam Vital Signs: Vital Signs Temp Pulse Resp BP Pulse Ox 04/04/21 07:38 98.6 F 98 16 159/60 H 95 04/04/21 06:40 98.2 F 104 H 16 143/76 H 95 - My Orders Last 24 Hours: My Active Orders 04/04/21 07:01 Cardiac Monitoring [RC] . DIRECTED ED Antiemetic Medication Reflex [OM.PC] Stat Peripheral IV Insertion Adult [OM.PC] Stat 04/04/21 07:06 INR,PT,PROTHROMBIN TIME [COAG] Stat LACTIC ACID [CHEM] Stat PTT,PARTIAL THROMBOPLSTIN TIME [COAG] Stat Sodium Chloride 0.9% [Saline Flush] 10 ml FLUSH ASDIRECTED PRN 04/04/21 07:08 Peripheral IV Care [RC] . DIRECTED 04/04/21 07:15 Sodium Chloride 0.9% [Normal Saline] 1,000 ml IV .BOLUS 04/04/21 09:30 Sodium Chloride 0.9% [Normal Saline] 1,000 ml IV ASDIRECTED - Assessment/Plan Last 24 Hours: My Active Orders 04/04/21 07:01 Cardiac Monitoring [RC] . DIRECTED ED Antiemetic Medication Reflex [OM.PC] Stat Peripheral IV Insertion Adult [OM.PC] Stat 04/04/21 07:06 INR,PT,PROTHROMBIN TIME [COAG] Stat LACTIC ACID [CHEM] Stat PTT,PARTIAL THROMBOPLSTIN TIME [COAG] Stat Sodium Chloride 0.9% [Saline Flush] 10 ml FLUSH ASDIRECTED PRN 04/04/21 07:08 Peripheral IV Care [RC] . DIRECTED 04/04/21 07:15 Sodium Chloride 0.9% [Normal Saline] 1,000 ml IV .BOLUS 04/04/21 09:30 Sodium Chloride 0.9% [Normal Saline] 1,000 ml IV ASDIRECTED
--- NOTE | 2021-04-04 08:30 | CR ---
Chest: Portable view of the chest was obtained. Comparison: Prior chest x-ray of 08/14/19. Heart size and mediastinum are within normal limits. Lung markings are slightly increased. Lungs otherwise are clear. Bony structures show nothing acute. Impression: 1. Slightly increased central lung markings which most likely relate to technique if patient has no symptoms to suggest bronchitis. 2. Nothing acute is otherwise seen on portable chest x-ray. Diagnostic code #3
[2021-04-04] MEDS ORDERED: Enoxaparin 40 MG/0.4 ML Syringe SUBCUT SCH (09:00)
[2021-04-04] MEDS ORDERED: Ketorolac 30 MG/ML SDV IVPUSH ONE (09:09)
[2021-04-04] MEDS: Sodium Chloride 0.9% 1,000 ML IV SCH ×2 (09:28→18:48)
[2021-04-04] MEDS ORDERED: Ondansetron 4 MG/2 ML SDV IV PRN (11:58)
[2021-04-04] MEDS ORDERED: Albuterol/Ipratropium 3.0-0.5 MG/3 ML Neb Soln NEB PRN (11:58)
[2021-04-04] MEDS ORDERED: Albuterol 6.7 GM Inhaler INH PRN (11:58)
[2021-04-04] MEDS ORDERED: Acetaminophen 325 MG Tab PO PRN (11:58)
[2021-04-04] MEDS ORDERED: Magnesium Sulfate/Water 2 GM in Premix Bag 1 BAG IV ONE ×2 (12:04→16:15)
[2021-04-04] MEDS ORDERED: Potassium Chloride 20 MEQ Tab.ER PO ONE ×2 (12:05→16:15)
--- NOTE | 2021-04-04 12:27 | PCM.HP.2 ---
<Kandi Gonsalez E - Last Filed: 04/04/21 12:43> H&P History of Present Illness - General Date of Service: 04/04/21 Admit Problem/Dx: Admission Diagnosis/Problem Admission Diagnosis/Problem Winside's disease Source of Information: Patient, Old Records, Provider, RN History Limitations: Reports: No Limitations - History of Present Illness Initial Comments - Free Text/Narative: This is a 45-year old female who presented to the ED with complaints of cough, body aches, head aches, and nausea/vomiting. Her symptoms began approximately one week ago. She has a history of Winside's disease, hypothyroidism, and DM type II. In the ED, she tested positive for COVID-19. She has not required supplemental oxygen and saturations have been in the mid to upper 90's. She has not been vaccinated for COVID-19. The patient also had concerns of being in an adrenal crisis due to her diagnosis of Ryan's disease. She reports taking a stress dose of steroids as she had not been feeling well. In the ED she was given 125mg Solu-Medrol, Zofran, 1L fluid bolus, and was started on IV fluids. Labs in the ED were obtained: WBC 6.31. Hemoglobin elevated 16.1. Hematocrit elevated at 49.2. Platelet count low at 124,000. Sodium 138. Potassium low at 3.4. Chloride 102. Carbon dioxide 25. Anion gap 14.4. Creatinine elevated 1.1. BUN 9. Estimated GFR 54. Calcium 7.9. Magnesium low at 1.6. AST 36. ALT 51. Alkaline phosphatase elevated at 269. CRP elevated at 3.1. Albumin low at 3.1. Upon admission, she reports having a cough/SOB, generalized weakness, body and muscle aches, and diarrhea. Her nausea and vomiting has subsided since receiving Zofran in the ED. She denies chest pain or edema. Denies abdominal pain. She denies any chance of . She will be admitted to the floor on telemetry and continuous oximetry for management of COVID-19 and Winside's disease. Symptom Onset Date: 03/28/21 Headache Pain Score (Numeric/FACES): 5 - Related Data Allergies/Adverse Reactions: Allergies Allergy/AdvReac Type Severity Reaction Status Date / Time No Known Allergies Allergy Verified 08/14/19 20:51 Home Medications: Home Meds Levothyroxine Sodium [Synthroid] 175 mcg PO DAILY 11/18/15 [History] Fludrocortisone [Florinef] 0.1 mg PO DAILY #30 tablet 11/20/15 [Rx] Hydrocortisone 0.5 tab PO ASDIRECTED PRN 10/10/17 [History] Hydrocortisone [Cortef] 1 tab PO DAILY 10/10/17 [History] Hydrocortisone [Cortef] 2 tab PO QAM 10/10/17 [History] Insulin Glarg,Human.Rec.Analog [Lantus] 35 units SUBCUT DAILY 10/10/17 [History] Insulin Aspart [NovoLOG] 04/04/21 [History] Past Medical History HEENT History: Reports: Impaired Vision, Other (See Below) Other HEENT History: pt wears glasses [employer] History: Reports: Other OB/BYN History: 1 - vaginal Endocrine/Metabolic History: Reports: Winside's Disease, Diabetes, Type II, Hypothyroidism, IDDM - Infectious Disease History Infectious Disease History: Reports: Chicken Pox, Influenza - Past Surgical History HEENT Surgical History: Reports: None GI Surgical History: Reports: Appendectomy, Cholecystectomy Social & Family History - Family History Family Medical History: No Pertinent Family History - Tobacco Use Tobacco Use Status *Q: Never Tobacco User - Caffeine Use Caffeine Use: Reports: Coffee, Soda Other Caffeine Use: coffee one cup a diet, couple of diet mt dews a day 2-3 H&P Review of Systems - Review of Systems: Review Of Systems: See Below General: Reports: Weakness, Fatigue, Decreased Appetite. Denies: Fever, Chills HEENT: Reports: Headaches, Post Nasal Drip. Denies: Ear Pain, Sinus Congestion, Sore Throat Pulmonary: Reports: Shortness of Breath, Cough, Sputum. Denies: Wheezing, Pleur itic Chest Pain Cardiovascular: Reports: Dyspnea on Exertion. Denies: Chest Pain, Palpitations, Edema, Syncope Gastrointestinal: Reports: Diarrhea, Decreased Appetite, Nausea, Vomiting. Denies: Abdominal Pain, Constipation Genitourinary: Reports: No Symptoms. Denies: Dysuria, Frequency, Pain, Urgency Musculoskeletal: Reports: No Symptoms Skin: Reports: No Symptoms. Denies: Cyanosis Psychiatric: Reports: No Symptoms. Denies: Confusion, Depression Neurological: Reports: Headache. Denies: Confusion, Dizziness, Seizure, Syncope Hematologic/Lymphatic: Reports: No Symptoms Immunologic: Reports: No Symptoms Exam - Exam Exam: See Below - Vital Signs Vital Signs: Last Vital Signs Temp 97.7 F 04/04/21 09:55 Pulse 98 04/04/21 09:55 Resp 16 04/04/21 09:55 BP 159/60 H 04/04/21 07:38 Pulse Ox 93 L 04/04/21 09:55 Weight: 230 lb - Exam Quality Assessment: DVT Prophylaxis. No: Supplemental Oxygen, Urinary Catheter General: Alert, Oriented HEENT: Conjunctiva Clear, Pupils Equal, Glasses Neck: Supple, Trachea Midline Lungs: Clear to Auscultation, Normal Respiratory Effort Cardiovascular: Regular Rate, Regular Rhythm GI/Abdominal Exam: Normal Bowel Sounds, Soft, Non-Tender, No Distention (Female) Exam: Deferred Rectal (Female) Exam: Deferred Back Exam: Normal Inspection, Full Range of Motion Extremities: Normal Inspection, Normal Range of Motion, Non-Tender, No Pedal Edema Peripheral Pulses: 2+: Radial (L), Radial (R), Dorsalis Pedis (L), Dorsalis Pedis (R) Skin: Warm, Dry, Intact Neurological: Cranial Nerves Intact (grossly) Psychiatric: Alert, Normal Affect, Normal Mood - Patient Data Lab Results Last 24 hrs: Laboratory Results - last 24 hr 04/04/21 04/04/21 04/04/21 Range/Units 06:25 07:06 07:51 WBC 6.31 (3.98-10.04) K/mm3 RBC 5.84 H (3.98-5.22) M/mm3 Hgb 16.1 H D (11.2-15.7) gm/dl Hct 49.2 H (34.1-44.9) % MCV 84.2 (79.4-94.8) fl MCH 27.6 (25.6-32.2) pg MCHC 32.7 (32.2-35.5) g/dl RDW Std Deviation 41.0 (36.4-46.3) fL Plt Count 124 L D (182-369) K/mm3 MPV 11.4 (9.4-12.3) fl Neut % (Auto) 47.8 (34.0-71.1) % Lymph % (Auto) 42.8 (19.3-51.7) % [place] % (Auto) 8.2 (4.7-12.5) % Eos % (Auto) 0.5 L (0.7-5.8) Baso % (Auto) 0.5 (0.1-1.2) % Neut # (Auto) 3.02 (1.56-6.13) K/mm3 Lymph # (Auto) 2.70 (1.18-3.74) K/mm3 [place] # (Auto) 0.52 H (0.24-0.36) K/mm3 Eos # (Auto) 0.03 L (0.04-0.36) K/mm3 Baso # (Auto) 0.03 (0.01-0.08) K/mm3 PT 10.6 (9.7-12.0) SECONDS INR 0.95 APTT 32.3 H (21.7-31.4) SECONDS Sodium (136-145) mEq/L Potassium (3.5-5.1) mEq/L Chloride (98-107) mEq/L Carbon Dioxide (21-32) mEq/L Anion Gap (5-15) BUN (7-18) mg/dL Creatinine (0.55-1.02) mg/dL Est Cr Clr Drug Dosing mL/min Estimated GFR (MDRD) (>60) mL/min BUN/Creatinine Ratio (14-18) Glucose (70-99) mg/dL POC Glucose 86 (70-99) mg/dL Lactic Acid (0.4-2.0) mmol/L Calcium (8.5-10.1) mg/dL Magnesium (1.8-2.4) mg/dL Total Bilirubin (0.2-1.0) mg/dL AST (15-37) U/L ALT (14-59) U/L Alkaline Phosphatase (46-116) U/L C-Reactive Protein (<1.0) mg/dL Total Protein (6.4-8.2) g/dl Albumin (3.4-5.0) g/dl Globulin gm/dL Albumin/Globulin Ratio (1-2) SARS-CoV-2 RNA (LAURITA) (NEGATIVE) 04/04/21 04/04/21 04/04/21 Range/Units 07:51 07:55 10:00 WBC (3.98-10.04) K/mm3 RBC (3.98-5.22) M/mm3 Hgb (11.2-15.7) gm/dl Hct (34.1-44.9) % MCV (79.4-94.8) fl MCH (25.6-32.2) pg MCHC (32.2-35.5) g/dl RDW Std Deviation (36.4-46.3) fL Plt Count (182-369) K/mm3 MPV (9.4-12.3) fl Neut % (Auto) (34.0-71.1) % Lymph % (Auto) (19.3-51.7) % [place] % (Auto) (4.7-12.5) % Eos % (Auto) (0.7-5.8) Baso % (Auto) (0.1-1.2) % Neut # (Auto) (1.56-6.13) K/mm3 Lymph # (Auto) (1.18-3.74) K/mm3 [place] # (Auto) (0.24-0.36) K/mm3 Eos # (Auto) (0.04-0.36) K/mm3 Baso # (Auto) (0.01-0.08) K/mm3 PT (9.7-12.0) SECONDS INR APTT (21.7-31.4) SECONDS Sodium 138 (136-145) mEq/L Potassium 3.4 L (3.5-5.1) mEq/L Chloride 102 (98-107) mEq/L Carbon Dioxide 25 (21-32) mEq/L Anion Gap 14.4 (5-15) BUN 9 (7-18) mg/dL Creatinine 1.1 H (0.55-1.02) mg/dL Est Cr Clr Drug Dosing 56.94 mL/min Estimated GFR (MDRD) 54 (>60) mL/min BUN/Creatinine Ratio 8.2 L (14-18) Glucose 80 (70-99) mg/dL POC Glucose (70-99) mg/dL Lactic Acid 0.6 (0.4-2.0) mmol/L Calcium 7.9 L (8.5-10.1) mg/dL Magnesium 1.6 L (1.8-2.4) mg/dL Total Bilirubin 0.3 (0.2-1.0) mg/dL AST 36 (15-37) U/L ALT 51 (14-59) U/L Alkaline Phosphatase 269 H (46-116) U/L C-Reactive Protein 3.1 H* (<1.0) mg/dL Total Protein 6.9 (6.4-8.2) g/dl Albumin 3.1 L (3.4-5.0) g/dl Globulin 3.8 gm/dL Albumin/Globulin Ratio 0.8 L (1-2) SARS-CoV-2 RNA (LAURITA) Positive H (NEGATIVE) Result Diagrams: 04/04/21 07:51 04/04/21 07:51 Sepsis Event Note - Evaluation Sepsis Screening Result: No Definite Risk - Focused Exam Vital Signs: Vital Signs Temp Pulse Resp BP Pulse Ox 04/04/21 09:55 97.7 F 98 16 93 L 04/04/21 07:38 98.6 F 98 16 159/60 H 95 04/04/21 06:40 98.2 F 104 H 16 143/76 H 95 - Problem List (1) Elevated C-reactive protein (CRP) SNOMED Code(s): 672612743905430 ICD Code: R79.82 - ELEVATED C-REACTIVE PROTEIN (CRP) Status: Acute Priority: High Current Visit: Yes (2) Hypomagnesemia SNOMED Code(s): 151759979 ICD Code: E83.42 - HYPOMAGNESEMIA Status: Acute Priority: Medium Current Visit: Yes (3) Hypokalemia SNOMED Code(s): 33831125 ICD Code: E87.6 - HYPOKALEMIA Status: Acute Priority: Medium Current Visit: Yes (4) Thrombocytopenia SNOMED Code(s): 752768818 ICD Code: D69.6 - THROMBOCYTOPENIA, UNSPECIFIED Status: Acute Priority: Medium Current Visit: Yes (5) Adrenal crisis SNOMED Code(s): 960858928, 728850386 ICD Code: E27.2 - ADDISONIAN CRISIS Status: Acute Priority: High Current Visit: Yes (6) COVID-19 SNOMED Code(s): 195226195 ICD Code: U07.1 - COVID-19 Status: Acute Priority: High Current Visit: Yes (7) Addisons disease SNOMED Code(s): 347155382 ICD Code: E27.1 - PRIMARY ADRENOCORTICAL INSUFFICIENCY Status: Chronic Priority: High Current Visit: Yes (8) Hypothyroid SNOMED Code(s): 94129455 ICD Code: E03.9 - HYPOTHYROIDISM, UNSPECIFIED Status: Acute Priority: High Current Visit: Yes Qualifiers: Hypothyroidism type: unspecified Qualified Code(s): E03.9 - Hypothyroidism, unspecified (9) Insulin dependent diabetes mellitus SNOMED Code(s): 88611875 ICD Code: E11.9 - TYPE 2 DIABETES MELLITUS WITHOUT COMPLICATIONS; Z79.4 - GROUP HOME (CURRENT) USE OF INSULIN Status: Chronic Priority: Medium Current Visit: Yes Problem List Initiated/Reviewed/Updated: Yes Orders Last 24hrs: Active Orders 24 hr Category Date Time Status Patient Status [ADT] Routine ADT 04/04/21 11:59 Active Blood Glucose Check, Bedside [RC] QIDACANDBED Care 04/04/21 12:07 Active Cardiac Monitoring [RC] . DIRECTED Care 04/04/21 07:01 Active Height and Weight [RC] DAILY Care 04/04/21 11:58 Active Intake and Output [RC] DAILY Care 04/04/21 12:00 Active Nurse Communication: Isolation [RC] ASDIRECTED Care 04/04/21 12:04 Active Oxygen Therapy [RC] ASDIRECTED Care 04/04/21 11:59 Active Peripheral IV Care [RC] . DIRECTED Care 04/04/21 07:08 Active Pulse Oximetry [RC] CONTINUOUS Care 04/04/21 12:00 Active RT Aerosol Therapy [RC] ASDIRECTED Care 04/04/21 12:02 Active RT Chest Physiotherapy [RC] ASDIRECTED Care 04/04/21 11:58 Active RT Incentive Spirometry [RC] ASDIRECTED Care 04/04/21 11:58 Active Up With Assistance [RC] ASDIRECTED Care 04/04/21 12:00 Active Vital Signs [RC] Q6H Care 04/04/21 11:59 Active Respiratory Care Assess and Treatment [CONS] Routine Cons 04/04/21 12:03 Active Consistent Carbohydrate Diet [DIET] Diet 04/04/21 Lunch Active C-REACTIVE PROTEIN [CHEM] AM Lab 04/05/21 05:11 Ordered C-REACTIVE PROTEIN [CHEM] AM Lab 04/06/21 05:11 Ordered C-REACTIVE PROTEIN [CHEM] AM Lab 04/07/21 05:11 Ordered C-REACTIVE PROTEIN [CHEM] AM Lab 04/08/21 05:11 Ordered CBC WITH AUTO DIFF [HEME] AM Lab 04/05/21 05:11 Ordered CBC WITH AUTO DIFF [HEME] AM Lab 04/06/21 05:11 Ordered CBC WITH AUTO DIFF [HEME] AM Lab 04/07/21 05:11 Ordered CBC WITH AUTO DIFF [HEME] AM Lab 04/08/21 05:11 Ordered COMPREHENSIVE METABOLIC PN,CMP [CHEM] AM Lab 04/05/21 05:11 Ordered COMPREHENSIVE METABOLIC PN,CMP [CHEM] AM Lab 04/06/21 05:11 Ordered COMPREHENSIVE METABOLIC PN,CMP [CHEM] AM Lab 04/07/21 05:11 Ordered COMPREHENSIVE METABOLIC PN,CMP [CHEM] AM Lab 04/08/21 05:11 Ordered D-DIMER QUANTITATIVE [COAG] Q48H Lab 04/06/21 05:11 Ordered D-DIMER QUANTITATIVE [COAG] Q48H Lab 04/08/21 05:11 Ordered D-DIMER QUANTITATIVE [COAG] Q48H Lab 04/10/21 05:11 Ordered DD [D-DIMER QUANTITATIVE] [COAG] Stat Lab 04/04/21 11:56 Ordered FERRITIN [CHEM] Stat Lab 04/04/21 11:21 Ordered HCG QUALITATIVE,SERUM [CHEM] Routine Lab 04/04/21 11:58 Ordered LACTATE DEHYDROGENASE,LDH [CHEM] Stat Lab 04/04/21 11:21 Ordered MAGNESIUM [CHEM] AM Lab 04/05/21 05:11 Ordered MAGNESIUM [CHEM] AM Lab 04/06/21 05:11 Ordered MAGNESIUM [CHEM] AM Lab 04/07/21 05:11 Ordered MAGNESIUM [CHEM] AM Lab 04/08/21 05:11 Ordered PROCALCITONIN [REF] Stat Lab 04/04/21 11:21 Ordered TSH [CHEM] Stat Lab 04/04/21 11:56 Ordered VITAMIN D,25-HYDROXY [CHEM] Routine Lab 04/04/21 12:05 Ordered Acetaminophen [TylenoL] Med 04/04/21 11:58 Active 650 mg PO Q4H PRN Albuterol [Proventil HFA] Med 04/04/21 11:58 Active See Dose Instructions INH Q2H PRN Albuterol/Ipratropium [DuoNeb 3.0-0.5 MG/3 ML] Med 04/04/21 11:58 Active 3 ml NEB QIDRT PRN Enoxaparin [Lovenox] Med 04/04/21 09:00 Active 40 mg SUBCUT DAILY Famotidine [Pepcid] Med 04/04/21 21:00 Active 20 mg PO BID Fludrocortisone [Florinef] Med 04/05/21 09:00 Active 0.1 mg PO DAILY Hydrocortisone [Cortef] Med 04/05/21 09:00 Active 10 mg PO DAILY Hydrocortisone [Cortef] Med 04/05/21 08:00 Active 20 mg PO QAM Hydrocortisone [Cortef] Med 04/05/21 09:00 Active 5 mg PO DAILY Insulin Glarg,Human.Rec.Analog [LantUS] Med 04/05/21 09:00 Active 25 unit SUBCUT DAILY Insulin Lispro [HumaLOG] Med 04/04/21 17:00 Active See Protocol SUBCUT QIDACANDBED Levothyroxine Med 04/05/21 09:00 Active 175 mcg PO DAILY Magnesium Sulfate/Water [Magnesium Sulfate in Water 2 Med 04/04/21 12:04 A ctive GM/50 ML] 2 gm Premix Bag 1 bag IV ONETIME Ondansetron [Zofran] Med 04/04/21 11:58 Active 4 mg IV Q6H PRN Sodium Chloride 0.9% [Normal Saline] 1,000 ml Med 04/04/21 07:15 Active IV .BOLUS Sodium Chloride 0.9% [Normal Saline] 1,000 ml Med 04/04/21 09:30 Active IV ASDIRECTED Sodium Chloride 0.9% [Saline Flush] Med 04/04/21 07:06 Active 10 ml FLUSH ASDIRECTED PRN ED Antiemetic Medication Reflex [OM.PC] Stat Ot 04/04/21 07:01 Ordered Isolation [COMM] Routine Ot 04/04/21 11:58 Ordered Peripheral IV Insertion Adult [OM.PC] Stat Ot 04/04/21 07:01 Ordered Resuscitation Status Routine Resus Stat 04/04/21 11:58 Ordered Medication Orders Acetaminophen (Acetaminophen 325 Mg Tab) 650 mg PO Q4H PRN PRN Reason: Pain (Mild 1-3)/fever Albuterol (Albuterol 6.7 Gm Inhaler) 0 gm INH Q2H PRN PRN Reason: SOB/Wheezing Albuterol/Ipratropium (Albuterol/Ipratropium 3.0-0.5 Mg/3 Ml Neb Soln) 3 ml NEB QIDRT PRN PRN Reason: Shortness Of Breath/wheezing Enoxaparin Sodium (Enoxaparin 40 Mg/0.4 Ml Syringe) 40 mg SUBCUT DAILY [facility] Famotidine (Famotidine 20 Mg Tab) 20 mg PO BID [facility] Fludrocortisone Acetate (Fludrocortisone 0.1 Mg Tab) 0.1 mg PO DAILY [facility] Hydrocortisone (Hydrocortisone 10 Mg Tab) 10 mg PO DAILY [facility] Hydrocortisone (Hydrocortisone 10 Mg Tab) 20 mg PO QAM [facility] Hydrocortisone (Hydrocortisone 10 Mg Tab) 5 mg PO DAILY [facility] Sodium Chloride (Normal Saline) 1,000 mls @ 1,000 mls/hr IV .BOLUS [facility] Last Admin: 04/04/21 07:34 Dose: 1,000 mls/hr Documented by: KRISTINE Sodium Chloride (Normal Saline) 1,000 mls @ 150 mls/hr IV ASDIRECTED [facility] Last Admin: 04/04/21 09:28 Dose: 150 mls/hr Documented by: KRISTINE Magnesium Sulfate 2 gm/ Premix 50 mls @ 25 mls/hr IV ONETIME ONE Stop: 04/04/21 14:03 Insulin Glargine (Insulin Glarg,Human.Rec.Analog 100 Unit/Ml) 25 unit SUBCUT DAILY [facility] Insulin Human Lispro (Insulin Lispro 100 Unit/Ml 10 Ml Vial) 0 unit SUBCUT QIDACANDBED [facility]; Protocol Levothyroxine Sodium (Levothyroxine 150 Mcg Tab) 175 mcg PO DAILY [facility] Ondansetron HCl (Ondansetron 4 Mg/2 Ml Sdv) 4 mg IV Q6H PRN PRN Reason: Nausea/Vomiting Sodium Chloride (Sodium Chloride 0.9% 10 Ml Syringe) 10 ml FLUSH ASDIRECTED PRN PRN Reason: Keep Vein Open Last Admin: 04/04/21 07:30 Dose: 10 ml Documented by: KRISTINE Assessment/Plan Comment:: Assessment (admission date 04/04/2021) * 45-year old female who presented to the ED with complaints of cough, body aches, head aches, and nausea/vomiting. * Personal history of Winside's disease, hypothyroidism, and DM type II. * Symptoms began 03/28/2021. In the ED, she tested positive for COVID-19. * She has not been vaccinated for COVID-19. * Patient also had concerns of being in an adrenal crisis. * Had taken a stress dose of steroids as she had not been feeling well. * Labs in the ED were obtained: * WBC 6.31. * Hemoglobin elevated 16.1. * Hematocrit elevated at 49.2. * Platelet count low at 124,000. * Sodium 138. * Potassium low at 3.4. * Chloride 102. * Carbon dioxide 25. * Anion gap 14.4. * Creatinine elevated 1.1. * BUN 9. * Estimated GFR 54. * Calcium 7.9. * Magnesium low at 1.6. * AST 36. * ALT 51. * Alkaline phosphatase elevated at 269. * CRP elevated at 3.1. * Albumin low at 3.1. * Upon admission, symptoms of cough/SOB, generalized weakness, body and muscle aches, and diarrhea. * Nausea and vomiting has subsided since receiving Zofran in the ED. * Denies chest pain or edema. Denies abdominal pain. * Denies any chance of . * Given 125mg solu-Medrol, Zofran, 1L IV fluid bolus, and started on IV fluids. * Admitted to the floor on telemetry and continuous oximetry for management of COVID-19 and Winside's disease. PLAN Addisons disease Adrenal crisis * Fludrocortisone 0.1mg daily * Continue home hydrocortisone * Start addition 5mg hydrocortisone stress dosing daily * IV fluids as directed * Monitor electrolytes daily * Monitor vitals signs COVID-19 Elevated C-reactive protein (CRP) * Monitor oxygen saturations. Keep saturations between 88-95% * Telemetry * Continuous pulse oximetry * RT consultation * Contact and airborne precautions * I/S & Acapella * Hold off on PT/OT for now * As needed Albuterol MDI * As needed DuoNebs * Daily labs * q48 hour d-dimer * Lovenox 40mg daily * Famotidine 20mg BID * Ambulate around room * Check CBC, CMP, magnesium * D-dimer pending * Procalcitonin pending * Vitamin D level pending * Ferritin pending Insulin dependent diabetes mellitus * Lantus 25 units daily (home dose 35 units daily) * Novolog sliding scale * Monitor blood sugars QID AC and bedtime. * May need to increase long acting insulin due to decreasing on admission Hypothyroid * Continue home levothyroxine supplementation * Check TSH Hypomagnesemia * Supplementation * Repeat labs Hypokalemia * Supplementation * Repeat labs Thrombocytopenia * Monitor * Repeat labs * Will continue Lovenox now but may need to discontinue Code status: Full code PCP: Dr. Pagan DVT prophylaxis: Lovenox Disposition: She will be admitted to the floor on telemetry and continuous pulse oximetry for management of COVID-19 and adrenal crisis symptoms. Estimated stay is 2-3 days pending improvement. - Mortality Measure Prognosis:: Good <Salas Allen - Last Filed: 04/04/21 13:15> H&P History of Present Illness - General Admit Problem/Dx: Admission Diagnosis/Problem Admission Diagnosis/Problem Winside's disease Exam - Vital Signs Vital Signs: Last Vital Signs Temp 97.7 F 04/04/21 09:55 Pulse 98 04/04/21 09:55 Resp 16 04/04/21 09:55 BP 159/60 H 04/04/21 07:38 Pulse Ox 93 L 04/04/21 09:55 - Patient Data Lab Results Last 24 hrs: Laboratory Results - last 24 hr 04/04/21 04/04/21 04/04/21 Range/Units 06:25 07:06 07:51 WBC 6.31 (3.98-10.04) K/mm3 RBC 5.84 H (3.98-5.22) M/mm3 Hgb 16.1 H D (11.2-15.7) gm/dl Hct 49.2 H (34.1-44.9) % MCV 84.2 (79.4-94.8) fl MCH 27.6 (25.6-32.2) pg MCHC 32.7 (32.2-35.5) g/dl RDW Std Deviation 41.0 (36.4-46.3) fL Plt Count 124 L D (182-369) K/mm3 MPV 11.4 (9.4-12.3) fl Neut % (Auto) 47.8 (34.0-71.1) % Lymph % (Auto) 42.8 (19.3-51.7) % [place] % (Auto) 8.2 (4.7-12.5) % Eos % (Auto) 0.5 L (0.7-5.8) Baso % (Auto) 0.5 (0.1-1.2) % Neut # (Auto) 3.02 (1.56-6.13) K/mm3 Lymph # (Auto) 2.70 (1.18-3.74) K/mm3 [place] # (Auto) 0.52 H (0.24-0.36) K/mm3 Eos # (Auto) 0.03 L (0.04-0.36) K/mm3 Baso # (Auto) 0.03 (0.01-0.08) K/mm3 PT 10.6 (9.7-12.0) SECONDS INR 0.95 APTT 32.3 H (21.7-31.4) SECONDS D-Dimer, Quantitative (0.19-0.50) mg/L Sodium (136-145) mEq/L Potassium (3.5-5.1) mEq/L Chloride (98-107) mEq/L Carbon Dioxide (21-32) mEq/L Anion Gap (5-15) BUN (7-18) mg/dL Creatinine (0.55-1.02) mg/dL Est Cr Clr Drug Dosing mL/min Estimated GFR (MDRD) (>60) mL/min BUN/Creatinine Ratio (14-18) Glucose (70-99) mg/dL POC Glucose 86 (70-99) mg/dL Lactic Acid (0.4-2.0) mmol/L Calcium (8.5-10.1) mg/dL Magnesium (1.8-2.4) mg/dL Ferritin (8-252) ng/ml Total Bilirubin (0.2-1.0) mg/dL AST (15-37) U/L ALT (14-59) U/L Alkaline Phosphatase (46-116) U/L Lactate Dehydrogenase (81-234) U/L C-Reactive Protein (<1.0) mg/dL Total Protein (6.4-8.2) g/dl Albumin (3.4-5.0) g/dl Globulin gm/dL Albumin/Globulin Ratio (1-2) TSH 3rd Generation (0.358-3.74) uIU/mL SARS-CoV-2 RNA (LAURITA) (NEGATIVE) 04/04/21 04/04/21 04/04/21 Range/Units 07:51 07:55 09:53 WBC (3.98-10.04) K/mm3 RBC (3.98-5.22) M/mm3 Hgb (11.2-15.7) gm/dl Hct (34.1-44.9) % MCV (79.4-94.8) fl MCH (25.6-32.2) pg MCHC (32.2-35.5) g/dl RDW Std Deviation (36.4-46.3) fL Plt Count (182-369) K/mm3 MPV (9.4-12.3) fl Neut % (Auto) (34.0-71.1) % Lymph % (Auto) (19.3-51.7) % [place] % (Auto) (4.7-12.5) % Eos % (Auto) (0.7-5.8) Baso % (Auto) (0.1-1.2) % Neut # (Auto) (1.56-6.13) K/mm3 Lymph # (Auto) (1.18-3.74) K/mm3 [place] # (Auto) (0.24-0.36) K/mm3 Eos # (Auto) (0.04-0.36) K/mm3 Baso # (Auto) (0.01-0.08) K/mm3 PT (9.7-12.0) SECONDS INR APTT (21.7-31.4) SECONDS D-Dimer, Quantitative (0.19-0.50) mg/L Sodium 138 (136-145) mEq/L Potassium 3.4 L (3.5-5.1) mEq/L Chloride 102 (98-107) mEq/L Carbon Dioxide 25 (21-32) mEq/L Anion Gap 14.4 (5-15) BUN 9 (7-18) mg/dL Creatinine 1.1 H (0.55-1.02) mg/dL Est Cr Clr Drug Dosing 56.94 mL/min Estimated GFR (MDRD) 54 (>60) mL/min BUN/Creatinine Ratio 8.2 L (14-18) Glucose 80 (70-99) mg/dL POC Glucose (70-99) mg/dL Lactic Acid (0.4-2.0) mmol/L Calcium 7.9 L (8.5-10.1) mg/dL Magnesium 1.6 L (1.8-2.4) mg/dL Ferritin (8-252) ng/ml Total Bilirubin 0.3 (0.2-1.0) mg/dL AST 36 (15-37) U/L ALT 51 (14-59) U/L Alkaline Phosphatase 269 H (46-116) U/L Lactate Dehydrogenase 240 H (81-234) U/L C-Reactive Protein 3.1 H* (<1.0) mg/dL Total Protein 6.9 (6.4-8.2) g/dl Albumin 3.1 L (3.4-5.0) g/dl Globulin 3.8 gm/dL Albumin/Globulin Ratio 0.8 L (1-2) TSH 3rd Generation (0.358-3.74) uIU/mL SARS-CoV-2 RNA ([facility]) Positive H (NEGATIVE) 04/04/21 04/04/21 04/04/21 Range/Units 09:53 09:53 09:53 WBC (3.98-10.04) K/mm3 RBC (3.98-5.22) M/mm3 Hgb (11.2-15.7) gm/dl Hct (34.1-44.9) % MCV (79.4-94.8) fl MCH (25.6-32.2) pg MCHC (32.2-35.5) g/dl RDW Std Deviation (36.4-46.3) fL Plt Count (182-369) K/mm3 MPV (9.4-12.3) fl Neut % (Auto) (34.0-71.1) % Lymph % (Auto) (19.3-51.7) % [place] % (Auto) (4.7-12.5) % Eos % (Auto) (0.7-5.8) Baso % (Auto) (0.1-1.2) % Neut # (Auto) (1.56-6.13) K/mm3 Lymph # (Auto) (1.18-3.74) K/mm3 [place] # (Auto) (0.24-0.36) K/mm3 Eos # (Auto) (0.04-0.36) K/mm3 Baso # (Auto) (0.01-0.08) K/mm3 PT (9.7-12.0) SECONDS INR APTT (21.7-31.4) SECONDS D-Dimer, Quantitative 0.67 H (0.19-0.50) mg/L Sodium (136-145) mEq/L Potassium (3.5-5.1) mEq/L Chloride (98-107) mEq/L Carbon Dioxide (21-32) mEq/L Anion Gap (5-15) BUN (7-18) mg/dL Creatinine (0.55-1.02) mg/dL Est Cr Clr Drug Dosing mL/min Estimated GFR (MDRD) (>60) mL/min BUN/Creatinine Ratio (14-18) Glucose (70-99) mg/dL POC Glucose (70-99) mg/dL Lactic Acid (0.4-2.0) mmol/L Calcium (8.5-10.1) mg/dL Magnesium (1.8-2.4) mg/dL Ferritin 212 (8-252) ng/ml Total Bilirubin (0.2-1.0) mg/dL AST (15-37) U/L ALT (14-59) U/L Alkaline Phosphatase (46-116) U/L Lactate Dehydrogenase (81-234) U/L C-Reactive Protein (<1.0) mg/dL Total Protein (6.4-8.2) g/dl Albumin (3.4-5.0) g/dl Globulin gm/dL Albumin/Globulin Ratio (1-2) TSH 3rd Generation 0.665 (0.358-3.74) uIU/mL SARS-CoV-2 RNA ([facility]ITA) (NEGATIVE) 04/04/21 Range/Units 10:00 WBC (3.98-10.04) K/mm3 RBC (3.98-5.22) M/mm3 Hgb (11.2-15.7) gm/dl Hct (34.1-44.9) % MCV (79.4-94.8) fl MCH (25.6-32.2) pg MCHC (32.2-35.5) g/dl RDW Std Deviation (36.4-46.3) fL Plt Count (182-369) K/mm3 MPV (9.4-12.3) fl Neut % (Auto) (34.0-71.1) % Lymph % (Auto) (19.3-51.7) % [place] % (Auto) (4.7-12.5) % Eos % (Auto) (0.7-5.8) Baso % (Auto) (0.1-1.2) % Neut # (Auto) (1.56-6.13) K/mm3 Lymph # (Auto) (1.18-3.74) K/mm3 [place] # (Auto) (0.24-0.36) K/mm3 Eos # (Auto) (0.04-0.36) K/mm3 Baso # (Auto) (0.01-0.08) K/mm3 PT (9.7-12.0) SECONDS INR APTT (21.7-31.4) SECONDS D-Dimer, Quantitative (0.19-0.50) mg/L Sodium (136-145) mEq/L Potassium (3.5-5.1) mEq/L Chloride (98-107) mEq/L Carbon Dioxide (21-32) mEq/L Anion Gap (5-15) BUN (7-18) mg/dL Creatinine (0.55-1.02) mg/dL Est Cr Clr Drug Dosing mL/min Estimated GFR (MDRD) (>60) mL/min BUN/Creatinine Ratio (14-18) Glucose (70-99) mg/dL POC Glucose (70-99) mg/dL Lactic Acid 0.6 (0.4-2.0) mmol/L Calcium (8.5-10.1) mg/dL Magnesium (1.8-2.4) mg/dL Ferritin (8-252) ng/ml Total Bilirubin (0.2-1.0) mg/dL AST (15-37) U/L ALT (14-59) U/L Alkaline Phosphatase (46-116) U/L Lactate Dehydrogenase (81-234) U/L C-Reactive Protein (<1.0) mg/dL Total Protein (6.4-8.2) g/dl Albumin (3.4-5.0) g/dl Globulin gm/dL Albumin/Globulin Ratio (1-2) TSH 3rd Generation (0.358-3.74) uIU/mL SARS-CoV-2 RNA (LAURITA) (NEGATIVE) Result Diagrams: 04/04/21 07:51 04/04/21 07:51 Sepsis Event Note - Focused Exam Vital Signs: Vital Signs Temp Pulse Resp BP Pulse Ox 04/04/21 09:55 97.7 F 98 16 93 L 04/04/21 07:38 98.6 F 98 16 159/60 H 95 04/04/21 06:40 98.2 F 104 H 16 143/76 H 95 Orders Last 24hrs: Active Orders 24 hr Category Date Time Status Patient Status [ADT] Routine ADT 04/04/21 11:59 Active Blood Glucose Check, Bedside [RC] QIDACANDBED Care 04/04/21 12:07 Active Cardiac Monitoring [RC] . DIRECTED Care 04/04/21 07:01 Active Height and Weight [RC] DAILY Care 04/04/21 11:58 Active Intake and Output [RC] DAILY Care 04/04/21 12:00 Active Nurse Communication: Isolation [RC] ASDIRECTED Care 04/04/21 12:04 Active Oxygen Therapy [RC] ASDIRECTED Care 04/04/21 11:59 Active Peripheral IV Care [RC] . DIRECTED Care 04/04/21 07:08 Active Pulse Oximetry [RC] CONTINUOUS Care 04/04/21 12:00 Active RT Aerosol Therapy [RC] ASDIRECTED Care 04/04/21 12:02 Active RT Chest Physiotherapy [RC] ASDIRECTED Care 04/04/21 11:58 Active RT Incentive Spirometry [RC] ASDIRECTED Care 04/04/21 11:58 Active Up With Assistance [RC] ASDIRECTED Care 04/04/21 12:00 Active Vital Signs [RC] Q6H Care 04/04/21 11:59 Active Respiratory Care Assess and Treatment [CONS] Routine Cons 04/04/21 12:03 Active Consistent Carbohydrate Diet [DIET] Diet 04/04/21 Lunch Active A1C [GLYCOSYLATED HEMOGLOBIN,HGBA1C] [CHEM] Routine Lab 04/04/21 12:56 Ordered C-REACTIVE PROTEIN [CHEM] AM Lab 04/05/21 05:11 Ordered C-REACTIVE PROTEIN [CHEM] AM Lab 04/06/21 05:11 Ordered C-REACTIVE PROTEIN [CHEM] AM Lab 04/07/21 05:11 Ordered C-REACTIVE PROTEIN [CHEM] AM Lab 04/08/21 05:11 Ordered CBC WITH AUTO DIFF [HEME] AM Lab 04/05/21 05:11 Ordered CBC WITH AUTO DIFF [HEME] AM Lab 04/06/21 05:11 Ordered CBC WITH AUTO DIFF [HEME] AM Lab 04/07/21 05:11 Ordered CBC WITH AUTO DIFF [HEME] AM Lab 04/08/21 05:11 Ordered COMPREHENSIVE METABOLIC PN,CMP [CHEM] AM Lab 04/05/21 05:11 Ordered COMPREHENSIVE METABOLIC PN,CMP [CHEM] AM Lab 04/06/21 05:11 Ordered COMPREHENSIVE METABOLIC PN,CMP [CHEM] AM Lab 04/07/21 05:11 Ordered COMPREHENSIVE METABOLIC PN,CMP [CHEM] AM Lab 04/08/21 05:11 Ordered D-DIMER QUANTITATIVE [COAG] Q48H Lab 04/06/21 05:11 Ordered D-DIMER QUANTITATIVE [COAG] Q48H Lab 04/08/21 05:11 Ordered D-DIMER QUANTITATIVE [COAG] Q48H Lab 04/10/21 05:11 Ordered HCG QUALITATIVE,SERUM [CHEM] Routine Lab 04/04/21 11:58 Ordered MAGNESIUM [CHEM] AM Lab 04/05/21 05:11 Ordered MAGNESIUM [CHEM] AM Lab 04/06/21 05:11 Ordered MAGNESIUM [CHEM] AM Lab 04/07/21 05:11 Ordered MAGNESIUM [CHEM] AM Lab 04/08/21 05:11 Ordered PROCALCITONIN [REF] Stat Lab 04/04/21 11:21 Ordered VITAMIN D,25-HYDROXY [CHEM] Routine Lab 04/04/21 12:05 Ordered Acetaminophen [TylenoL] Med 04/04/21 11:58 Active 650 mg PO Q4H PRN Albuterol [Proventil HFA] Med 04/04/21 11:58 Active See Dose Instructions INH Q2H PRN Albuterol/Ipratropium [DuoNeb 3.0-0.5 MG/3 ML] Med 04/04/21 11:58 Active 3 ml NEB QIDRT PRN Enoxaparin [Lovenox] Med 04/05/21 09:00 Active 40 mg SUBCUT DAILY Famotidine [Pepcid] Med 04/04/21 21:00 Active 20 mg PO BID Fludrocortisone [Florinef] Med 04/05/21 09:00 Active 0.1 mg PO DAILY Hydrocortisone [Cortef] Med 04/05/21 12:00 Active 10 mg PO 1200 Hydrocortisone [Cortef] Med 04/05/21 09:00 Active 20 mg PO DAILY Hydrocortisone [Cortef] Med 04/05/21 09:00 Active 5 mg PO DAILY Insulin Glarg,Human.Rec.Analog [LantUS] Med 04/05/21 09:00 Active 25 unit SUBCUT DAILY Insulin Lispro [HumaLOG] Med 04/04/21 17:00 Active See Protocol SUBCUT QIDACANDBED Levothyroxine Med 04/05/21 06:00 Pending 75 mcg PO ACBREAKFAST Levothyroxine [Synthroid] Med 04/05/21 06:00 Pending 100 mcg PO ACBREAKFAST Magnesium Sulfate/Water [Magnesium Sulfate in Water 2 Med 04/04/21 12:04 Active GM/50 ML] 2 gm Premix Bag 1 bag IV ONETIME Ondansetron [Zofran] Med 04/04/21 11:58 Active 4 mg IV Q6H PRN Sodium Chloride 0.9% [Normal Saline] 1,000 ml Med 04/04/21 09:30 Active IV ASDIRECTED Sodium Chloride 0.9% [Saline Flush] Med 04/04/21 07:06 Active 10 ml FLUSH ASDIRECTED PRN ED Antiemetic Medication Reflex [OM.PC] Stat Oth 04/04/21 07:01 Ordered Isolation [COMM] Routine Ot 04/04/21 11:58 Ordered Peripheral IV Insertion Adult [OM.PC] Stat Oth 04/04/21 07:01 Ordered Resuscitation Status Routine Resus Stat 04/04/21 11:58 Ordered Medication Orders Acetaminophen (Acetaminophen 325 Mg Tab) 650 mg PO Q4H PRN PRN Reason: Pain (Mild 1-3)/fever Albuterol (Albuterol 6.7 Gm Inhaler) 0 gm INH Q2H PRN PRN Reason: SOB/Wheezing Albuterol/Ipratropium (Albuterol/Ipratropium 3.0-0.5 Mg/3 Ml Neb Soln) 3 ml NEB QIDRT PRN PRN Reason: Shortness Of Breath/wheezing Enoxaparin Sodium (Enoxaparin 40 Mg/0.4 Ml Syringe) 40 mg SUBCUT DAILY [facility] Famotidine (Famotidine 20 Mg Tab) 20 mg PO BID [facility] Fludrocortisone Acetate (Fludrocortisone 0.1 Mg Tab) 0.1 mg PO DAILY [facility] Hydrocortisone (Hydrocortisone 10 Mg Tab) 10 mg PO 1200 [facility] Hydrocortisone (Hydrocortisone 10 Mg Tab) 20 mg PO DAILY [facility] Hydrocortisone (Hydrocortisone 10 Mg Tab) 5 mg PO DAILY [facility] Sodium Chloride (Normal Saline) 1,000 mls @ 150 mls/hr IV ASDIRECTED KRISH Last Admin: 04/04/21 09:28 Dose: 150 mls/hr Documented by: KRISTINE Magnesium Sulfate 2 gm/ Premix 50 mls @ 25 mls/hr IV ONETIME ONE Stop: 04/04/21 14:03 Insulin Glargine (Insulin Glarg,Human.Rec.Analog 100 Unit/Ml) 25 unit SUBCUT DAILY [facility] Insulin Human Lispro (Insulin Lispro 100 Unit/Ml 10 Ml Vial) 0 unit SUBCUT QIDACANDBED [facility]; Protocol Levothyroxine Sodium (Levothyroxine 100 Mcg Tab) 100 mcg PO ACBREAKFAST [facility] Levothyroxine Sodium (Levothyroxine 75 Mcg Tab) 75 mcg PO ACBREAKFAST [facility] Ondansetron HCl (Ondansetron 4 Mg/2 Ml Sdv) 4 mg IV Q6H PRN PRN Reason: Nausea/Vomiting Sodium Chloride (Sodium Chloride 0.9% 10 Ml Syringe) 10 ml FLUSH ASDIRECTED PRN PRN Reason: Keep Vein Open Last Admin: 04/04/21 07:30 Dose: 10 ml Documented by: KRISTINE Assessment/Plan Comment:: I examined the patient independently of FRAN Asif and I agree with her evaluation and plan as noted above. Case discussed with Dr. Carr, attending hospitalist as well.
[2021-04-04 14:01] LABS: HEMOGLOBIN A1C 6.5 %
[2021-04-04] MEDS: Cholecalciferol (Vitamin D3) 5,000 UNIT Cap PO SCH (16:30)
[2021-04-04] MEDS: Insulin Lispro 100 UNIT/ML 10 ML Vial SUBCUT SCH ×3 (17:45→21:44)
[2021-04-04] MEDS: Famotidine 20 MG Tab PO SCH (20:25)
[2021-04-05] MEDS: Sodium Chloride 0.9% 1,000 ML IV SCH (02:58)
[2021-04-05] MEDS ORDERED: Levothyroxine 100 MCG Tab PO SCH (06:00)
[2021-04-05] MEDS ORDERED: Levothyroxine 75 MCG Tab PO SCH ×3 (06:00)
[2021-04-05] MEDS: Insulin Lispro 100 UNIT/ML 10 ML Vial SUBCUT SCH ×2 (08:58→12:13)
[2021-04-05] MEDS ORDERED: Enoxaparin 40 MG/0.4 ML Syringe SUBCUT SCH (09:00)
[2021-04-05] MEDS ORDERED: Fludrocortisone 0.1 MG Tab PO SCH (09:00)
[2021-04-05] MEDS ORDERED: Levothyroxine 150 MCG Tab PO SCH (09:00)
[2021-04-05] MEDS ORDERED: Insulin Glarg,Human.Rec.Analog 100 Unit/ML SUBCUT SCH (09:00)
[2021-04-05] MEDS ORDERED: Hydrocortisone 10 MG Tab PO SCH ×3 (09:00→12:00)
[2021-04-05] MEDS: Famotidine 20 MG Tab PO SCH (09:01)
[2021-04-05] MEDS: Cholecalciferol (Vitamin D3) 5,000 UNIT Cap PO SCH (09:03)
[2021-04-05 09:13] VITALS: BP 134/65; PULSE 65
--- NOTE | 2021-04-05 09:58 | PCM.DCSUM1 ---
<Salas Allen - Last Filed: 04/05/21 10:01> Discharge Summary - Hospital Course HPI Initial Comments: This is a 45-year old female who presented to the ED with complaints of cough, body aches, head aches, and nausea/vomiting. Her symptoms began approximately one week ago. She has a history of Ryan's disease, hypothyroidism, and DM type II. In the ED, she tested positive for COVID-19. She has not required supplemental oxygen and saturations have been in the mid to upper 90's. She has not been vaccinated for COVID-19. 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 She reports taking a stress dose of steroids as she had not been feeling well. In the ED she was given 125mg Solu-Medrol, Zofran, 1L fluid bolus, and was started on IV fluids. Labs in the ED were obtained: WBC 6.31. Hemoglobin elevated 16.1. Hematocrit elevated at 49.2. Platelet count low at 124,000. Sodium 138. Potassium low at 3.4. Chloride 102. Carbon dioxide 25. Anion gap 14.4. Creatinine elevated 1.1. BUN 9. Estimated GFR 54. Calcium 7.9. Magnesium low at 1.6. AST 36. ALT 51. Alkaline phosphatase elevated at 269. CRP elevated at 3.1. Albumin low at 3.1. Upon admission, she reports having a cough/SOB, generalized weakness, body and muscle aches, and diarrhea. Her nausea and vomiting has subsided since receiving Zofran in the ED. She denies chest pain or edema. Denies abdominal pain. She denies any chance of . She will be admitted to the floor on telemetry and continuous oximetry for management of COVID-19 and Ector's disease. Diagnosis: Stroke: No - Discharge Data Discharge Date: 04/05/21 (Admit date: 04/04/2021) Discharge Disposition: Home, Self-Care 01 Condition: Good - Referral to Home Health Primary Care Physician: Kosta Pagan MD - Discharge Diagnosis/Problem(s) (1) Adrenal crisis SNOMED Code(s): 321006255, 521530542 ICD Code: E27.2 - ADDISONIAN CRISIS Status: Resolved Priority: High (2) COVID-19 SNOMED Code(s): 479622509 ICD Code: U07.1 - COVID-19 Status: Acute Priority: High (3) Elevated C-reactive protein (CRP) SNOMED Code(s): 890246441699456 ICD Code: R79.82 - ELEVATED C-REACTIVE PROTEIN (CRP) Status: Acute Priority: High (4) Hypokalemia SNOMED Code(s): 88157120 ICD Code: E87.6 - HYPOKALEMIA Status: Resolved Priority: Medium (5) Hypomagnesemia SNOMED Code(s): 419472288 ICD Code: E83.42 - HYPOMAGNESEMIA Status: Resolved Priority: Medium (6) Hypothyroid SNOMED Code(s): 82148993 ICD Code: E03.9 - HYPOTHYROIDISM, UNSPECIFIED Status: Chronic Priority: High Qualifiers: Hypothyroidism type: unspecified Qualified Code(s): E03.9 - Hypothyroidism, unspecified (7) Thrombocytopenia SNOMED Code(s): 377097888 ICD Code: D69.6 - THROMBOCYTOPENIA, UNSPECIFIED Status: Acute Priority: Medium (8) Addisons disease SNOMED Code(s): 183042409 ICD Code: E27.1 - PRIMARY ADRENOCORTICAL INSUFFICIENCY Status: Chronic Priority: High (9) Insulin dependent diabetes mellitus SNOMED Code(s): 75649206 ICD Code: E11.9 - TYPE 2 DIABETES MELLITUS WITHOUT COMPLICATIONS; Z79.4 - CHEF GERMAN (CURRENT) USE OF INSULIN Status: Chronic Priority: Medium (10) Vomiting SNOMED Code(s): 912497613 ICD Code: R11.10 - VOMITING, UNSPECIFIED Status: Resolved Priority: High - Patient Summary/Data Consults: Consultations 04/04/21 12:03 Respiratory Care Assess and Treatment [CONS] Routine Labs Pending at D/C: None Recommended Follow-up Testing/Procedures: Follow-up with primary care provider within 5 to 7 days of discharge, sooner if needed. * Recommend repeat CBC, CMP, and magnesium on discharge. * Patient was Covid positive and was instructed to quarantine/isolate for 10 days from symptom onset. * Patient did not require any treatment for COVID-19 pneumonia. * Patient's vitamin D level was low here and she was started on supplementation. Please follow-up on this. * Patient was discharged with as needed Phenergan with codeine for cough. * Patient discharged on as needed Zofran for nausea. * Other home medications including patient's home steroids were continued. She was instructed to take her stress dosing of steroid until feeling better. Hospital Course: This is a 45-year-old female who presented to ED on 04/04/2021 with cough, body aches, headaches, and nausea and vomiting. She carries a history of Ector's disease, hypothyroidism, type II DM for which she utilizes insulin. She reports symptoms began on 03/28/2021. She tested positive for COVID-19 on 04/04/2021. She has not been vaccinated for COVID-19. She states she has had Ector's disease since she was 19 and she is worried that she is in adrenal crisis, she has had them before. Labs reveal she is quite dry in the emergency room. She is not utilizing any oxygen and her saturations are in the upper 90s. She is given 125 mg of Solu-Medrol, Zofran, 1 L fluid bolus, and started on IV fluids in the emergency room. She is admitted to the medical floor for management of her Ector's disease and concerns over worsening of her COVID-19 symptoms. On the floor after discussion with Dr. Carr, attending hospitalist, patient's home steroids are continued. She is given her home stress dosing of hydrocortisone. She continues on IV fluids. D-dimer is mildly elevated at 0.67 and she is started on daily Lovenox DVT prophylaxis. Magnesium and potassium were noted to be low in the emergency room and this is supplemented. Procalcitonin is obtained and is 0.06. Vitamin D is checked and is low at 21.0 and she is started on 5000 units daily supplementation. TSH is 0.665. Hemoglobin A1c is obtained and is 6.5. Lactic acid is 0.6. Ferritin is 212. LDH is mildly elevated at 240. With IV fluids and supplementation patient's labs improved. There is no leukocytosis. Patient's nausea and vomiting does resolve. She continues to have saturations in the upper 90s and no respiratory symptoms. Overall patient has been doing quite well. She states she still feels a bit weak and has a cough. Given her overall improvement and no significant COVID-19 symptoms we will discharge her today. She did not receive any COVID-19 treatment including high-dose steroids or remdesivir. She did not receive any antibiotics. We will start her on a daily 81 mg aspirin due to her elevated D- dimer and have her follow-up with her primary care provider. We will give her some Zofran for home if her nausea should return. We discussed checking her blood sugars 4 times daily before meals and bedtime and concerns over her not eating well due to being sick and possibly having decreased sugars. She will be discharged on her home steroid dosing and she was instructed to continue to take her stress dosing until she feels better. She was given some Phenergan with codeine as needed for cough. She was also prescribed vitamin D supplementation as her vitamin D was low as noted prior. She was discharged home today. She was instructed to return to the emergency room or contact her primary care provider should symptoms return or worsen. Recommend primary care follow-up within 5-7 days of discharge, sooner if needed. Recommend repeat CBC, CMP, and magnesium. Consider repeat chest x-ray. - Patient Instructions Diet: Diabetic Diet Activity: As Tolerated Driving: Do Not Drive (until feeling better ) Showering/Bathing: May Shower Notify Provider of: Fever, Increased Pain, Nausea and/or Vomiting Other/Special Instructions: Follow-up with primary care provider within 5 to 7 days of discharge, sooner if needed. While here your Covid test returned positive. You should continue to isolate/quarantine for 10 days from symptom onset. You will likely receive a call from a respiratory therapist assistant from the [facility]. Follow their directions. We will generally tell people to quarantine/isolate for 20 days from symptom onset if they are hospitalized due to Covid. You are not hospitalized for Covid symptoms but instead hospitalized for your Ector's disease. Your labs indicated you are at a mildly increased risk of blood clots. We tend to see this with Covid. You were started on a baby aspirin daily which you should start taking tomorrow. You can discuss continuing this with your primary care provider as you will likely not need this long-term. Your vitamin D here was low and we started you on a supplement for that. You can follow-up with this with your primary care provider. As we discussed you are sent an as needed prescription for Zofran to help control nausea and vomiting. Continue your steroids as per prior with your stress dosing as we discussed. You have not been requiring any oxygen and you were not started on treatment for COVID-19 as your symptoms do not warrant it. Remain hydrated. Drink plenty of water. As we discussed check your blood sugars 4 colton es a day before meals and at bedtime. If you notice low sugars contact your primary care provider. Continue to utilize your incentive spirometer (clear/blue device you inhale through) and Acapella (green device you blow through) for 1 to 2 weeks or until symptoms resolve. You may utilize [id number] cough suppressants or Mucinex for congestion. You were also provided Phenergan with codeine which you can take every 6 hours as needed for cough. Should symptoms return or worsen contact your primary care provider or return to the emergency room. - Discharge Plan *PRESCRIPTION DRUG MONITORING PROGRAM REVIEWED*: No *COPY OF PRESCRIPTION DRUG MONITORING REPORT IN PATIENT JULIANNE: No Prescriptions/Med Rec: Aspirin 81 mg PO DAILY #20 tab.chew Codeine/Promethazine [Phenergan with Codeine] 5 ml PO Q6HR PRN #100 ml PRN Reason: Cough Cholecalciferol (Vitamin D3) [Vitamin D3] 5,000 unit PO DAILY #20 cap ondansetron HCL [Zofran] 4 mg PO Q6H PRN #12 tablet PRN Reason: nausea/vomiting Home Medications: Home Meds Levothyroxine Sodium [Synthroid] 150 mcg PO DAILY 11/18/15 [History] Fludrocortisone [Florinef] 0.1 mg PO DAILY #30 tablet 11/20/15 [Rx] Hydrocortisone 1 - 2 tab PO ASDIRECTED PRN 10/10/17 [History] Hydrocortisone [Cortef] 30 mg PO DAILY 10/10/17 [History] Insulin Glarg,Human.Rec.Analog [Lantus] 35 units SUBCUT DAILY 10/10/17 [History] Insulin Aspart [NovoLOG] 5 - 6 units SQ TIDMEALS PRN 04/04/21 [History] Aspirin 81 mg PO DAILY #20 tab.chew 04/05/21 [Rx] Cholecalciferol (Vitamin D3) [Vitamin D3] 5,000 unit PO DAILY #20 cap 04/05/21 [Rx] Codeine/Promethazine [Phenergan with Codeine] 5 ml PO Q6HR PRN #100 ml 04/05/21 [Rx] ondansetron HCL [Zofran] 4 mg PO Q6H PRN #12 tablet 04/05/21 [Rx] Oxygen Therapy Mode: Room Air Patient Handouts: Ector's Disease, COVID-19 Frequently Asked Questions, COVID-19, 10 Things You Can Do to Manage Your COVID-19 Symptoms at Home - [facility] (01/25/2021) Referrals: Kosta Pagan MD [Primary Care Provider] - 04/15/21 11:30 am - Discharge Summary/Plan Comment DC Time >30 min.: Yes Total # of Minutes for Discharge Time: 45 - General Info Date of Service: 04/05/21 Admission Dx/Problem (Free Text: Admission Diagnosis/Problem Admission Diagnosis/Problem Ryan's disease Functional Status: Reports: Pain Controlled, Tolerating Diet, Ambulating, Urinating, Incentive Spirometry, Other (Acapella). Denies: New Symptoms - Review of Systems General: Reports: Weakness, Fatigue. Denies: Fever, Malaise, Chills HEENT: Reports: No Symptoms. Denies: Headaches, Sore Throat Pulmonary: Reports: Cough, Sputum. Denies: Shortness of Breath, Pleuritic Chest Pain, Wheezing Cardiovascular: Reports: No Symptoms. Denies: Chest Pain, Palpitations, Dyspnea on Exertion, Edema Gastrointestinal: Reports: No Symptoms. Denies: Abdominal Pain, Constipation, Diarrhea, Nausea, Vomiting Genitourinary: Reports: No Symptoms. Denies: Pain Musculoskeletal: Reports: No Symptoms Skin: Reports: No Symptoms. Denies: Cyanosis Neurological: Reports: No Symptoms. Denies: Confusion, Dizziness, Headache, Numbness, Pre-Existing Deficit, Seizure, Syncope, Tingling, Trouble Speaking, Difficulty Walking, Gait Disturbance Psychiatric: Reports: No Symptoms - Patient Data Vitals - Most Recent: Last Vital Signs Temp 97.5 F 04/05/21 07:59 Pulse 65 04/05/21 07:59 Resp 20 04/05/21 07:59 BP 134/65 04/05/21 07:59 Pulse Ox 99 04/05/21 02:59 Weight - Most Recent: 105.959 kg I&O - Last 24 hours: Intake & Output 04/04/21 04/05/21 04/05/21 22:59 06:59 14:59 Intake Total 620 1458 Output Total 475 Balance 145 1458 Lab Results - Last 24 hrs: Laboratory Results - last 24 hr 04/04/21 04/04/21 04/04/21 Range/Units 07:06 08:05 09:53 WBC (3.98-10.04) K/mm3 RBC (3.98-5.22) M/mm3 Hgb (11.2-15.7) gm/dl Hct (34.1-44.9) % MCV (79.4-94.8) fl MCH (25.6-32.2) pg MCHC (32.2-35.5) g/dl RDW Std Deviation (36.4-46.3) fL Plt Count (182-369) K/mm3 MPV (9.4-12.3) fl Neut % (Auto) (34.0-71.1) % Lymph % (Auto) (19.3-51.7) % [place] % (Auto) (4.7-12.5) % Eos % (Auto) (0.7-5.8) Baso % (Auto) (0.1-1.2) % Neut # (Auto) (1.56-6.13) K/mm3 Lymph # (Auto) (1.18-3.74) K/mm3 [place] # (Auto) (0.24-0.36) K/mm3 Eos # (Auto) (0.04-0.36) K/mm3 Baso # (Auto) (0.01-0.08) K/mm3 PT 10.6 (9.7-12.0) SECONDS INR 0.95 APTT 32.3 H (21.7-31.4) SECONDS D-Dimer, Quantitative (0.19-0.50) mg/L Sodium (136-145) mEq/L Potassium (3.5-5.1) mEq/L Chloride (98-107) mEq/L Carbon Dioxide (21-32) mEq/L Anion Gap (5-15) BUN (7-18) mg/dL Creatinine (0.55-1.02) mg/dL Est Cr Clr Drug Dosing mL/min Estimated GFR (MDRD) (>60) mL/min BUN/Creatinine Ratio (14-18) Glucose (70-99) mg/dL POC Glucose (70-99) mg/dL Hemoglobin A1c 6.5 H ( - 5.6) % Lactic Acid (0.4-2.0) mmol/L Calcium (8.5-10.1) mg/dL Magnesium (1.8-2.4) mg/dL Ferritin (8-252) ng/ml Total Bilirubin (0.2-1.0) mg/dL AST (15-37) U/L ALT (14-59) U/L Alkaline Phosphatase (46-116) U/L Lactate Dehydrogenase 240 H (81-234) U/L C-Reactive Protein (<1.0) mg/dL Total Protein (6.4-8.2) g/dl Albumin (3.4-5.0) g/dl Globulin gm/dL Albumin/Globulin Ratio (1-2) Vitamin D 25-Hydroxy (30.0-100.0) ng/ml Procalcitonin ng/mL TSH 3rd Generation (0.358-3.74) uIU/mL HCG, Qual (NEGATIVE) 04/04/21 04/04/21 04/04/21 Range/Units 09:53 09:53 09:53 WBC (3.98-10.04) K/mm3 RBC (3.98-5.22) M/mm3 Hgb (11.2-15.7) gm/dl Hct (34.1-44.9) % MCV (79.4-94.8) fl MCH (25.6-32.2) pg MCHC (32.2-35.5) g/dl RDW Std Deviation (36.4-46.3) fL Plt Count (182-369) K/mm3 MPV (9.4-12.3) fl Neut % (Auto) (34.0-71.1) % Lymph % (Auto) (19.3-51.7) % [place] % (Auto) (4.7-12.5) % Eos % (Auto) (0.7-5.8) Baso % (Auto) (0.1-1.2) % Neut # (Auto) (1.56-6.13) K/mm3 Lymph # (Auto) (1.18-3.74) K/mm3 [place] # (Auto) (0.24-0.36) K/mm3 Eos # (Auto) (0.04-0.36) K/mm3 Baso # (Auto) (0.01-0.08) K/mm3 PT (9.7-12.0) SECONDS INR APTT (21.7-31.4) SECONDS D-Dimer, Quantitative 0.67 H (0.19-0.50) mg/L Sodium (136-145) mEq/L Potassium (3.5-5.1) mEq/L Chloride (98-107) mEq/L Carbon Dioxide (21-32) mEq/L Anion Gap (5-15) BUN (7-18) mg/dL Creatinine (0.55-1.02) mg/dL Est Cr Clr Drug Dosing mL/min Estimated GFR (MDRD) (>60) mL/min BUN/Creatinine Ratio (14-18) Glucose (70-99) mg/dL POC Glucose (70-99) mg/dL Hemoglobin A1c ( - 5.6) % Lactic Acid (0.4-2.0) mmol/L Calcium (8.5-10.1) mg/dL Magnesium (1.8-2.4) mg/dL Ferritin 212 (8-252) ng/ml Total Bilirubin (0.2-1.0) mg/dL AST (15-37) U/L ALT (14-59) U/L Alkaline Phosphatase (46-116) U/L Lactate Dehydrogenase (81-234) U/L C-Reactive Protein (<1.0) mg/dL Total Protein (6.4-8.2) g/dl Albumin (3.4-5.0) g/dl Globulin gm/dL Albumin/Globulin Ratio (1-2) Vitamin D 25-Hydroxy (30.0-100.0) ng/ml Procalcitonin ng/mL TSH 3rd Generation 0.665 (0.358-3.74) uIU/mL HCG, Qual (NEGATIVE) 04/04/21 04/04/21 04/04/21 Range/Units 10:00 13:35 13:35 WBC (3.98-10.04) K/mm3 RBC (3.98-5.22) M/mm3 Hgb (11.2-15.7) gm/dl Hct (34.1-44.9) % MCV (79.4-94.8) fl MCH (25.6-32.2) pg MCHC (32.2-35.5) g/dl RDW Std Deviation (36.4-46.3) fL Plt Count (182-369) K/mm3 MPV (9.4-12.3) fl Neut % (Auto) (34.0-71.1) % Lymph % (Auto) (19.3-51.7) % [place] % (Auto) (4.7-12.5) % Eos % (Auto) (0.7-5.8) Baso % (Auto) (0.1-1.2) % Neut # (Auto) (1.56-6.13) K/mm3 Lymph # (Auto) (1.18-3.74) K/mm3 [place] # (Auto) (0.24-0.36) K/mm3 Eos # (Auto) (0.04-0.36) K/mm3 Baso # (Auto) (0.01-0.08) K/mm3 PT (9.7-12.0) SECONDS INR APTT (21.7-31.4) SECONDS D-Dimer, Quantitative (0.19-0.50) mg/L Sodium (136-145) mEq/L Potassium (3.5-5.1) mEq/L Chloride (98-107) mEq/L Carbon Dioxide (21-32) mEq/L Anion Gap (5-15) BUN (7-18) mg/dL Creatinine (0.55-1.02) mg/dL Est Cr Clr Drug Dosing mL/min Estimated GFR (MDRD) (>60) mL/min BUN/Creatinine Ratio (14-18) Glucose (70-99) mg/dL POC Glucose (70-99) mg/dL Hemoglobin A1c ( - 5.6) % Lactic Acid 0.6 (0.4-2.0) mmol/L Calcium (8.5-10.1) mg/dL Magnesium (1.8-2.4) mg/dL Ferritin (8-252) ng/ml Total Bilirubin (0.2-1.0) mg/dL AST (15-37) U/L ALT (14-59) U/L Alkaline Phosphatase (46-116) U/L Lactate Dehydrogenase (81-234) U/L C-Reactive Protein (<1.0) mg/dL Total Protein (6.4-8.2) g/dl Albumin (3.4-5.0) g/dl Globulin gm/dL Albumin/Globulin Ratio (1-2) Vitamin D 25-Hydroxy (30.0-100.0) ng/ml Procalcitonin 0.06 ng/mL TSH 3rd Generation (0.358-3.74) uIU/mL HCG, Qual Negative (NEGATIVE) 04/04/21 04/04/21 04/04/21 Range/Units 13:35 16:51 20:08 WBC (3.98-10.04) K/mm3 RBC (3.98-5.22) M/mm3 Hgb (11.2-15.7) gm/dl Hct (34.1-44.9) % MCV (79.4-94.8) fl MCH (25.6-32.2) pg MCHC (32.2-35.5) g/dl RDW Std Deviation (36.4-46.3) fL Plt Count (182-369) K/mm3 MPV (9.4-12.3) fl Neut % (Auto) (34.0-71.1) % Lymph % (Auto) (19.3-51.7) % [place] % (Auto) (4.7-12.5) % Eos % (Auto) (0.7-5.8) Baso % (Auto) (0.1-1.2) % Neut # (Auto) (1.56-6.13) K/mm3 Lymph # (Auto) (1.18-3.74) K/mm3 [place] # (Auto) (0.24-0.36) K/mm3 Eos # (Auto) (0.04-0.36) K/mm3 Baso # (Auto) (0.01-0.08) K/mm3 PT (9.7-12.0) SECONDS INR APTT (21.7-31.4) SECONDS D-Dimer, Quantitative (0.19-0.50) mg/L Sodium (136-145) mEq/L Potassium (3.5-5.1) mEq/L Chloride (98-107) mEq/L Carbon Dioxide (21-32) mEq/L Anion Gap (5-15) BUN (7-18) mg/dL Creatinine (0.55-1.02) mg/dL Est Cr Clr Drug Dosing mL/min Estimated GFR (MDRD) (>60) mL/min BUN/Creatinine Ratio (14-18) Glucose (70-99) mg/dL POC Glucose 250 H 348 H (70-99) mg/dL Hemoglobin A1c ( - 5.6) % Lactic Acid (0.4-2.0) mmol/L Calcium (8.5-10.1) mg/dL Magnesium (1.8-2.4) mg/dL Ferritin (8-252) ng/ml Total Bilirubin (0.2-1.0) mg/dL AST (15-37) U/L ALT (14-59) U/L Alkaline Phosphatase (46-116) U/L Lactate Dehydrogenase (81-234) U/L C-Reactive Protein (<1.0) mg/dL Total Protein (6.4-8.2) g/dl Albumin (3.4-5.0) g/dl Globulin gm/dL Albumin/Globulin Ratio (1-2) Vitamin D 25-Hydroxy 21.0 L (30.0-100.0) ng/ml Procalcitonin ng/mL TSH 3rd Generation (0.358-3.74) uIU/mL HCG, Qual (NEGATIVE) 04/05/21 04/05/21 04/05/21 Range/Units 06:41 06:42 06:42 WBC 4.46 (3.98-10.04) K/mm3 RBC 5.40 H (3.98-5.22) M/mm3 Hgb 15.0 (11.2-15.7) gm/dl Hct 45.3 H (34.1-44.9) % MCV 83.9 (79.4-94.8) fl MCH 27.8 (25.6-32.2) pg MCHC 33.1 (32.2-35.5) g/dl RDW Std Deviation 40.4 (36.4-46.3) fL Plt Count 127 L (182-369) K/mm3 MPV 12.1 (9.4-12.3) fl Neut % (Auto) 54.2 (34.0-71.1) % Lymph % (Auto) 33.9 (19.3-51.7) % [place] % (Auto) 11.7 (4.7-12.5) % Eos % (Auto) 0 L (0.7-5.8) Baso % (Auto) 0.2 (0.1-1.2) % Neut # (Auto) 2.42 (1.56-6.13) K/mm3 Lymph # (Auto) 1.51 (1.18-3.74) K/mm3 [place] # (Auto) 0.52 H (0.24-0.36) K/mm3 Eos # (Auto) 0.00 L (0.04-0.36) K/mm3 Baso # (Auto) 0.01 (0.01-0.08) K/mm3 PT (9.7-12.0) SECONDS INR APTT (21.7-31.4) SECONDS D-Dimer, Quantitative (0.19-0.50) mg/L Sodium 137 (136-145) mEq/L Potassium 5.2 H D (3.5-5.1) mEq/L Chloride 107 (98-107) mEq/L Carbon Dioxide 22 (21-32) mEq/L Anion Gap 13.2 (5-15) BUN 11 (7-18) mg/dL Creatinine 0.8 (0.55-1.02) mg/dL Est Cr Clr Drug Dosing 78.30 mL/min Estimated GFR (MDRD) > 60 (>60) mL/min BUN/Creatinine Ratio 13.8 L (14-18) Glucose 173 H (70-99) mg/dL POC Glucose 159 H (70-99) mg/dL Hemoglobin A1c ( - 5.6) % Lactic Acid (0.4-2.0) mmol/L Calcium 7.7 L (8.5-10.1) mg/dL Magnesium 2.5 H (1.8-2.4) mg/dL Ferritin (8-252) ng/ml Total Bilirubin 0.3 (0.2-1.0) mg/dL AST 32 (15-37) U/L ALT 54 (14-59) U/L Alkaline Phosphatase 255 H (46-116) U/L Lactate Dehydrogenase (81-234) U/L C-Reactive Protein 4.9 H* (<1.0) mg/dL Total Protein 6.4 (6.4-8.2) g/dl Albumin 2.7 L (3.4-5.0) g/dl Globulin 3.7 gm/dL Albumin/Globulin Ratio 0.7 L (1-2) Vitamin D 25-Hydroxy (30.0-100.0) ng/ml Procalcitonin ng/mL TSH 3rd Generation (0.358-3.74) uIU/mL HCG, Qual (NEGATIVE) Med Orders - Current: Current Medications Acetaminophen (Acetaminophen 325 Mg Tab) 650 mg PO Q4H PRN PRN Reason: Pain (Mild 1-3)/fever Last Admin: 04/04/21 17:45 Dose: 650 mg Documented by: Albuterol (Albuterol 6.7 Gm Inhaler) 0 gm INH Q2H PRN PRN Reason: SOB/Wheezing Albuterol/Ipratropium (Albuterol/Ipratropium 3.0-0.5 Mg/3 Ml Neb Soln) 3 ml NEB QIDRT PRN PRN Reason: Shortness Of Breath/wheezing Cholecalciferol (Cholecalciferol (Vitamin D3) 5,000 Unit Cap) 5,000 unit PO DAILY [facility] Last Admin: 04/05/21 09:03 Dose: 5,000 unit Documented by: Enoxaparin Sodium (Enoxaparin 40 Mg/0.4 Ml Syringe) 40 mg SUBCUT DAILY [facility] Last Admin: 04/05/21 09:03 Dose: 40 mg Documented by: Famotidine (Famotidine 20 Mg Tab) 20 mg PO BID [facility] Last Admin: 04/05/21 09:01 Dose: 20 mg Documented by: Fludrocortisone Acetate (Fludrocortisone 0.1 Mg Tab) 0.1 mg PO DAILY [facility] Last Admin: 04/05/21 09:01 Dose: 0.1 mg Documented by: Hydrocortisone (Hydrocortisone 10 Mg Tab) 10 mg PO 1200 [facility] Hydrocortisone (Hydrocortisone 10 Mg Tab) 20 mg PO DAILY [facility] Last Admin: 04/05/21 09:01 Dose: 20 mg Documented by: Hydrocortisone (Hydrocortisone 10 Mg Tab) 5 mg PO DAILY [facility] Last Admin: 04/05/21 09:01 Dose: 5 mg Documented by: Insulin Glargine (Insulin Glarg,Human.Rec.Analog 100 Unit/Ml) 25 unit SUBCUT DAILY [facility] Last Admin: 04/05/21 08:59 Dose: 25 units Documented by: Insulin Human Lispro (Insulin Lispro 100 Unit/Ml 10 Ml Vial) 0 unit SUBCUT QIDACANDBED [facility]; Protocol Last Admin: 04/05/21 08:58 Dose: 2 units Documented by: Levothyroxine Sodium (Levothyroxine 75 Mcg Tab) 150 mcg PO ACBREAKFAST [facility] Last Admin: 04/05/21 06:24 Dose: 150 mcg Documented by: Ondansetron HCl (Ondansetron 4 Mg/2 Ml Sdv) 4 mg IV Q6H PRN PRN Reason: Nausea/Vomiting Sodium Chloride (Sodium Chloride 0.9% 10 Ml Syringe) 10 ml FLUSH ASDIRECTED PRN PRN Reason: Keep Vein Open Last Admin: 04/04/21 07:30 Dose: 10 ml Documented by: Discontinued Medications Enoxaparin Sodium (Enoxaparin 40 Mg/0.4 Ml Syringe) 40 mg SUBCUT DAILY [facility] Last Admin: 04/04/21 17:13 Dose: Not Given Documented by: Sodium Chloride (Normal Saline) 1,000 mls @ 1,000 mls/hr IV .BOLUS [facility] Last Admin: 04/04/21 07:34 Dose: 1,000 mls/hr Documented by: Sodium Chloride (Normal Saline) 1,000 mls @ 150 mls/hr IV ASDIRECTED [facility] Last Admin: 04/05/21 02:58 Dose: 150 mls/hr Documented by: Magnesium Sulfate 2 gm/ Premix 50 mls @ 25 mls/hr IV ONETIME ONE Stop: 04/04/21 14:03 Last Admin: 04/04/21 16:28 Dose: 25 mls/hr Documented by: Magnesium Sulfate 2 gm/ Premix 50 mls @ 25 mls/hr IV ONETIME ONE Stop: 04/04/21 18:14 Last Admin: 04/04/21 16:34 Dose: 25 mls/hr Documented by: Ketorolac Tromethamine (Ketorolac 30 Mg/Ml Sdv) 30 mg IVPUSH ONETIME ONE Stop: 04/04/21 09:10 Last Admin: 04/04/21 09:23 Dose: 30 mg Documented by: Levothyroxine Sodium (Levothyroxine 150 Mcg Tab) 175 mcg PO DAILY [facility] Levothyroxine Sodium (Levothyroxine 75 Mcg Tab) 75 mcg PO ACBREAKFAST [facility] Methylprednisolone Sodium Succinate (Methylprednisolone Sodium Succinate 125 Mg/2 Ml Sdv) 125 mg IVPUSH ONETIME ONE Stop: 04/04/21 07:09 Last Admin: 04/04/21 07:32 Dose: 125 mg Documented by: Ondansetron HCl (Ondansetron 4 Mg/2 Ml Sdv) 4 mg IVPUSH ONETIME ONE Stop: 04/04/21 07:07 Last Admin: 04/04/21 07:30 Dose: 4 mg Documented by: Potassium Chloride (Potassium Chloride 20 Meq Tab.Er) 40 meq PO ONETIME ONE Stop: 04/04/21 12:06 Last Admin: 04/04/21 16:26 Dose: 40 meq Documented by: Potassium Chloride (Potassium Chloride 20 Meq Tab.Er) 40 meq PO ONETIME ONE Stop: 04/04/21 16:16 Last Admin: 04/04/21 16:33 Dose: Not Given Documented by: - Exam Quality Assessment: Reports: DVT Prophylaxis. Denies: Supplemental Oxygen, Urine Catheter General: Reports: Alert, Oriented, Cooperative, No Acute Distress HEENT: Reports: Pupils Equal, Pupils Reactive, Mucous Membr. Moist/[place] Neck: Reports: Supple, Trachea Midline Lungs: Reports: Clear to Auscultation, Normal Respiratory Effort Cardiovascular: Reports: Regular Rate, Regular Rhythm, Bradycardia GI/Abdominal Exam: Normal Bowel Sounds, Soft, Non-Tender, No Distention (Female) Exam: Deferred Rectal (Female) Exam: Deferred Back Exam: Reports: Normal Inspection, Full Range of Motion Extremities: Normal Inspection, Normal Range of Motion, Non-Tender, No Pedal Edema, Normal Capillary Refill Skin: Reports: Warm, Dry, Intact Neurological: Reports: No New Focal Deficit Psy/Mental Status: Reports: Alert, Normal Affect, Normal Mood <Harris Amin - Last Filed: 04/06/21 16:43> Discharge Summary - Referral to Home Health Primary Care Physician: Kosta Pagan MD - Patient Summary/Data Consults: Consultations 04/04/21 12:03 Respiratory Care Assess and Treatment [CONS] Routine - Patient Data Vitals - Most Recent: Last Vital Signs Temp 36.4 C 04/05/21 07:59 Pulse 65 04/05/21 07:59 Resp 20 04/05/21 07:59 BP 134/65 04/05/21 07:59 Pulse Ox 99 04/05/21 02:59 Med Orders - Current: Current Medications Discontinued Medications Acetaminophen (Acetaminophen 325 Mg Tab) 650 mg PO Q4H PRN PRN Reason: Pain (Mild 1-3)/fever Last Admin: 04/04/21 17:45 Dose: 650 mg Documented by: Albuterol (Albuterol 6.7 Gm Inhaler) 0 gm INH Q2H PRN PRN Reason: SOB/Wheezing Albuterol/Ipratropium (Albuterol/Ipratropium 3.0-0.5 Mg/3 Ml Neb Soln) 3 ml NEB QIDRT PRN PRN Reason: Shortness Of Breath/wheezing Cholecalciferol (Cholecalciferol (Vitamin D3) 5,000 Unit Cap) 5,000 unit PO DAILY [facility] Last Admin: 04/05/21 09:03 Dose: 5,000 unit Documented by: Enoxaparin Sodium (Enoxaparin 40 Mg/0.4 Ml Syringe) 40 mg SUBCUT DAILY [facility] Last Admin: 04/04/21 17:13 Dose: Not Given Documented by: Enoxaparin Sodium (Enoxaparin 40 Mg/0.4 Ml Syringe) 40 mg SUBCUT DAILY [facility] Last Admin: 04/05/21 09:03 Dose: 40 mg Documented by: Famotidine (Famotidine 20 Mg Tab) 20 mg PO BID [facility] Last Admin: 04/05/21 09:01 Dose: 20 mg Documented by: Fludrocortisone Acetate (Fludrocortisone 0.1 Mg Tab) 0.1 mg PO DAILY [facility] Last Admin: 04/05/21 09:01 Dose: 0.1 mg Documented by: Hydrocortisone (Hydrocortisone 10 Mg Tab) 10 mg PO 1200 [facility] Last Admin: 04/05/21 12:13 Dose: 10 mg Documented by: Hydrocortisone (Hydrocortisone 10 Mg Tab) 20 mg PO DAILY [facility] Last Admin: 04/05/21 09:01 Dose: 20 mg Documented by: Hydrocortisone (Hydrocortisone 10 Mg Tab) 5 mg PO DAILY [facility] Last Admin: 04/05/21 09:01 Dose: 5 mg Documented by: Sodium Chloride (Normal Saline) 1,000 mls @ 1,000 mls/hr IV .BOLUS [facility] Last Admin: 04/04/21 07:34 Dose: 1,000 mls/hr Documented by: Sodium Chloride (Normal Saline) 1,000 mls @ 150 mls/hr IV ASDIRECTED [facility] Last Admin: 04/05/21 02:58 Dose: 150 mls/hr Documented by: Magnesium Sulfate 2 gm/ Premix 50 mls @ 25 mls/hr IV ONETIME ONE Stop: 04/04/21 14:03 Last Admin: 04/04/21 16:28 Dose: 25 mls/hr Documented by: Magnesium Sulfate 2 gm/ Premix 50 mls @ 25 mls/hr IV ONETIME ONE Stop: 04/04/21 18:14 Last Admin: 04/04/21 16:34 Dose: 25 mls/hr Documented by: Insulin Glargine (Insulin Glarg,Human.Rec.Analog 100 Unit/Ml) 25 unit SUBCUT DAILY [facility] Last Admin: 04/05/21 08:59 Dose: 25 units Documented by: Insulin Human Lispro (Insulin Lispro 100 Unit/Ml 10 Ml Vial) 0 unit SUBCUT QIDACANDBED [facility]; Protocol Last Admin: 04/05/21 12:13 Dose: 4 units Documented by: Ketorolac Tromethamine (Ketorolac 30 Mg/Ml Sdv) 30 mg IVPUSH ONETIME ONE Stop: 04/04/21 09:10 Last Admin: 04/04/21 09:23 Dose: 30 mg Documented by: Levothyroxine Sodium (Levothyroxine 150 Mcg Tab) 175 mcg PO DAILY [facility] Levothyroxine Sodium (Levothyroxine 75 Mcg Tab) 75 mcg PO ACBREAKFAST [facility] Levothyroxine Sodium (Levothyroxine 75 Mcg Tab) 150 mcg PO ACBREAKFAST [facility] Last Admin: 04/05/21 06:24 Dose: 150 mcg Documented by: Methylprednisolone Sodium Succinate (Methylprednisolone Sodium Succinate 125 Mg/2 Ml Sdv) 125 mg IVPUSH ONETIME ONE Stop: 04/04/21 07:09 Last Admin: 04/04/21 07:32 Dose: 125 mg Documented by: Ondansetron HCl (Ondansetron 4 Mg/2 Ml Sdv) 4 mg IVPUSH ONETIME ONE Stop: 04/04/21 07:07 Last Admin: 04/04/21 07:30 Dose: 4 mg Documented by: Ondansetron HCl (Ondansetron 4 Mg/2 Ml Sdv) 4 mg IV Q6H PRN PRN Reason: Nausea/Vomiting Potassium Chloride (Potassium Chloride 20 Meq Tab.Er) 40 meq PO ONETIME ONE Stop: 04/04/21 12:06 Last Admin: 04/04/21 16:26 Dose: 40 meq Documented by: Potassium Chloride (Potassium Chloride 20 Meq Tab.Er) 40 meq PO ONETIME ONE Stop: 04/04/21 16:16 Last Admin: 04/04/21 16:33 Dose: Not Given Documented by: Sodium Chloride (Sodium Chloride 0.9% 10 Ml Syringe) 10 ml FLUSH ASDIRECTED PRN PRN Reason: Keep Vein Open Last Admin: 04/04/21 07:30 Dose: 10 ml Documented by: - Free Text/Narrative Note: I have seen and examined the patient independently of Salas Allen PA-C. I have discussed the case with him and reviewed and agree with the plan of care as outlined by him. Please see orders.
== END 2021-04-05 13:55 | disposition home or self-care (01) | DRG 424 ==
LOC: JD.ED 06:16 → JD.MS 11:59
PROVIDERS: ADMIT Internal Medicine; ATTEND Internal Medicine
PROC: 8E0ZXY6 Isolation (ICD-10-PCS; principal; 2021-04-04)
DX: E27.2 Addisonian crisis (principal); U07.1 COVID-19; E27.1 Primary adrenocortical insufficiency; E03.9 Hypothyroidism, unspecified; E11.9 Type 2 diabetes mellitus without complications; E87.6 Hypokalemia; E83.42 Hypomagnesemia; D69.6 Thrombocytopenia, unspecified; Z79.4 Long term (current) use of insulin; Z79.82 Long term (current) use of aspirin; Z79.890 Hormone replacement therapy; Z79.899 Other long term (current) drug therapy; Z20.822 Contact with and (suspected) exposure to COVID-19
CPT/HCPCS: 36415; 71045; 71045-26; 80053; 82306; 82728; 82947; 83036; 83605; 83615; 83735; 84145; 84443; 84703; 85025; 85379; 85610; 85730; 86140; 94667; 94762; A9270-GY; J1650; J1815-GY; J1885; J2405; J2930; J3475; J7030; U0002

== ENCOUNTER 2021-04-06 03:03 | Emergency (ER) | payer BC ==
[2021-04-06 03:22] VITALS: BP 171/80
[2021-04-06] MEDS ORDERED: Sodium Chloride 0.9% 10 ML Syringe FLUSH PRN (03:33)
[2021-04-06] MEDS ORDERED: Ondansetron 4 MG/2 ML SDV IVPUSH ONE (03:33)
[2021-04-06] MEDS ORDERED: methylPREDNISolone Sodium Succinate 125 MG/2 ML SDV IVPUSH ONE (03:34)
--- NOTE | 2021-04-06 03:42 | EDM.PDOC ---
<Michael Randall - Last Filed: 04/06/21 07:07> ED HPI GENERAL MEDICAL PROBLEM - General Chief Complaint: Fever Stated Complaint: COVID+/ FEVER,COUGH,VOMITING Time Seen by Provider: 04/06/21 03:27 Source of Information: Reports: Patient History Limitations: Reports: No Limitations - History of Present Illness INITIAL COMMENTS - FREE TEXT/NARRATIVE: The patient presents with nausea, vomiting, fever and a cough. 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 She is also COVID positive. She was admitted to the hospital and released yesterday but this morning she had a fever and started vomiting again. She still has a cough. She did get IV steroids and then oral steroids. She says she needs at least 3 days of IV steroids to get better. She has no chest pain. She has shortness of breath. She has no abdominal pain. She has no diarrhea. Onset: Gradual Duration: Day(s): Severity: Moderate Improves with: Reports: None Worsens with: Reports: None Associated Symptoms: Reports: Cough, Fever/Chills, Nausea/Vomiting. Denies: Chest Pain, Headaches, Shortness of Breath Abdomen Pain Score (Numeric/FACES): 5 - Related Data Allergies Allergy/AdvReac Type Severity Reaction Status Date / Time No Known Allergies Allergy Verified 08/14/19 20:51 Home Meds: Home Meds Levothyroxine Sodium [Synthroid] 150 mcg PO DAILY 11/18/15 [History] Fludrocortisone [Florinef] 0.1 mg PO DAILY #30 tablet 11/20/15 [Rx] Hydrocortisone 1 - 2 tab PO ASDIRECTED PRN 10/10/17 [History] Hydrocortisone [Cortef] 30 mg PO DAILY 10/10/17 [History] Insulin Glarg,Human.Rec.Analog [Lantus] 35 units SUBCUT DAILY 10/10/17 [History] Insulin Aspart [NovoLOG] 5 - 6 units SQ TIDMEALS PRN 04/04/21 [History] Aspirin 81 mg PO DAILY #20 tab.chew 04/05/21 [Rx] Cholecalciferol (Vitamin D3) [Vitamin D3] 5,000 unit PO DAILY #20 cap 04/05/21 [Rx] Codeine/Promethazine [Phenergan with Codeine] 5 ml PO Q6HR PRN #100 ml 04/05/21 [Rx] ondansetron HCL [Zofran] 4 mg PO Q6H PRN #12 tablet 04/05/21 [Rx] Past Medical History HEENT History: Reports: Impaired Vision, Other (See Below) Other HEENT History: pt wears glasses [employer] History: Reports: Other [employer] History: 1 - vaginal Endocrine/Metabolic History: Reports: Ryan's Disease, Diabetes, Type II, Hypokalemia, Hypomagnesemia, Hypothyroidism, IDDM, Obesity/BMI 30+ - Infectious Disease History Infectious Disease History: Reports: C-Difficile, Chicken Pox, Influenza, Novel Coronavirus Other Infectious Disease History: 2012 - Past Surgical History HEENT Surgical History: Reports: None GI Surgical History: Reports: Appendectomy, Cholecystectomy Endocrine Surgical History: Reports: None Social & Family History - Family History Family Medical History: No Pertinent Family History - Caffeine Use Caffeine Use: Reports: Coffee, Soda Other Caffeine Use: coffee one cup a diet, couple of diet mt dews a day 2-3 ED ROS GENERAL - Review of Systems Review Of Systems: See Below Constitutional: Reports: Fever, Chills, Malaise, Weakness, Fatigue HEENT: Reports: No Symptoms Respiratory: Reports: Cough. Denies: Shortness of Breath Cardiovascular: Reports: No Symptoms Endocrine: Reports: No Symptoms GI/Abdominal: Reports: No Symptoms : Reports: No Symptoms ED EXAM, GENERAL - Physical Exam Exam: See Below Exam Limited By: No Limitations General Appearance: Alert, No Apparent Distress Ears: Normal External Exam Nose: Normal Inspection Head: Atraumatic, Normocephalic Neck: Normal Inspection Respiratory/Chest: No Respiratory Distress, Lungs Clear, Normal Breath Sounds Cardiovascular: No Edema, No Murmur, Tachycardia GI/Abdominal: Soft, Non-Tender, No Organomegaly, No Mass Back Exam: Normal Inspection Extremities: Normal Inspection Course - Re-Assessments/Exams Free Text/Narrative Re-Assessment/Exam: 04/06/21 03:41 I ordered an IV NS 1L bolus zofran 4mg IV, solu-medrol 125mg IV, labs and CXR. 04/06/21 06:27 Her CXR shows bilateral infiltrates. Her CBC was negative. Her lactic acid was normal. Her calcium was low at 7.2. Her alk phos was elevated at 196. Her CRP was elevated at 7. Her oxygen saturations are still good here. She does not feel like she can go home. She usually needs to be hospitalized for 3 days with IV steroids. 04/06/21 07:04 We have no beds here. I called [facility] in [place] and [facility] in [place] and they are both full. I also called [facility]. She lives near there and they were full. I called the [facility] at [facility] and they are trying to find her a bed. 04/06/21 07:07 It is change of shift. Dr Courtney to take over. Departure - Departure Disposition: Home, Self-Care 01 Clinical Impression: Pneumonia due to COVID-19 virus, Addisons disease Vomiting Qualifiers: Vomiting type: unspecified Vomiting Intractability: non-intractable Nausea presence: with nausea Qualified Code(s): R11.2 - Nausea with vomiting, unspecified - Discharge Information Referrals: Kosta Pagan MD [Primary Care Provider] - Forms: ED Department Discharge Sepsis Event Note (ED) - Evaluation Sepsis Screening Result: No Definite Risk <Abhinav Courtney - Last Filed: 04/06/21 12:15> Course - Vital Signs Last Recorded V/S: Last Vital Signs Temp 97.9 F 04/06/21 03:19 Pulse 89 04/06/21 11:18 Resp 18 04/06/21 11:18 BP 171/80 H 04/06/21 03:19 Pulse Ox 95 04/06/21 11:18 - Orders/Labs/Meds Orders: Active Orders 24 hr Category Date Time Status Cardiac Monitoring [RC] . DIRECTED Care 04/06/21 03:33 Active Peripheral IV Care [RC] . DIRECTED Care 04/06/21 03:33 Active Sodium Chloride 0.9% [Normal Saline] 1,000 ml Med 04/06/21 03:45 Active IV .BOLUS Sodium Chloride 0.9% [Saline Flush] Med 04/06/21 03:33 Active 10 ml FLUSH ASDIRECTED PRN ED Antiemetic Medication Reflex [OM.PC] Stat Oth 04/06/21 03:33 Ordered Peripheral IV Insertion Adult [OM.PC] Stat Oth 04/06/21 03:33 Ordered Medication Orders Sodium Chloride (Normal Saline) 1,000 mls @ 1,000 mls/hr IV .BOLUS KRISH Last Admin: 04/06/21 04:07 Dose: 250 mls/hr Documented by: PHONG Sodium Chloride (Sodium Chloride 0.9% 10 Ml Syringe) 10 ml FLUSH ASDIRECTED PRN PRN Reason: Keep Vein Open Last Admin: 04/06/21 04:08 Dose: 10 ml Documented by: PHONG Labs: Laboratory Tests 04/06/21 04/06/21 04/06/21 Range/Units 03:33 04:04 05:30 WBC 9.43 (3.98-10.04) K/mm3 RBC 5.07 (3.98-5.22) M/mm3 Hgb 14.1 (11.2-15.7) gm/dl Hct 42.8 (34.1-44.9) % MCV 84.4 (79.4-94.8) fl MCH 27.8 (25.6-32.2) pg MCHC 32.9 (32.2-35.5) g/dl RDW Std Deviation 40.9 (36.4-46.3) fL Plt Count 137 L (182-369) K/mm3 MPV 11.0 (9.4-12.3) fl Neut % (Auto) 87.3 H (34.0-71.1) % Lymph % (Auto) 9.0 L (19.3-51.7) % [place] % (Auto) 3.5 L (4.7-12.5) % Eos % (Auto) 0 L (0.7-5.8) Baso % (Auto) 0.1 (0.1-1.2) % Neut # (Auto) 8.23 H (1.56-6.13) K/mm3 Lymph # (Auto) 0.85 L (1.18-3.74) K/mm3 [place] # (Auto) 0.33 (0.24-0.36) K/mm3 Eos # (Auto) 0.00 L (0.04-0.36) K/mm3 Baso # (Auto) 0.01 (0.01-0.08) K/mm3 Manual Slide Review Abnormal smear PT (9.7-12.0) SECONDS INR APTT (21.7-31.4) SECONDS D-Dimer, Quantitative (0.19-0.50) mg/L Sodium (136-145) mEq/L Potassium (3.5-5.1) mEq/L Chloride (98-107) mEq/L Carbon Dioxide (21-32) mEq/L Anion Gap (5-15) BUN (7-18) mg/dL Creatinine (0.55-1.02) mg/dL Est Cr Clr Drug Dosing mL/min Estimated GFR (MDRD) (>60) mL/min BUN/Creatinine Ratio (14-18) Glucose (70-99) mg/dL POC Glucose 72 (70-99) mg/dL Lactic Acid 1.4 (0.4-2.0) mmol/L Calcium (8.5-10.1) mg/dL Ferritin (8-252) ng/ml Total Bilirubin (0.2-1.0) mg/dL AST (15-37) U/L ALT (14-59) U/L Alkaline Phosphatase (46-116) U/L Lactate Dehydrogenase (81-234) U/L C-Reactive Protein (<1.0) mg/dL Total Protein (6.4-8.2) g/dl Albumin (3.4-5.0) g/dl Globulin gm/dL Albumin/Globulin Ratio (1-2) 04/06/21 04/06/21 04/06/21 Range/Units 05:30 05:30 05:30 WBC (3.98-10.04) K/mm3 RBC (3.98-5.22) M/mm3 Hgb (11.2-15.7) gm/dl Hct (34.1-44.9) % MCV (79.4-94.8) fl MCH (25.6-32.2) pg MCHC (32.2-35.5) g/dl RDW Std Deviation (36.4-46.3) fL Plt Count (182-369) K/mm3 MPV (9.4-12.3) fl Neut % (Auto) (34.0-71.1) % Lymph % (Auto) (19.3-51.7) % Roosevelt % (Auto) (4.7-12.5) % Eos % (Auto) (0.7-5.8) Baso % (Auto) (0.1-1.2) % Neut # (Auto) (1.56-6.13) K/mm3 Lymph # (Auto) (1.18-3.74) K/mm3 Roosevelt # (Auto) (0.24-0.36) K/mm3 Eos # (Auto) (0.04-0.36) K/mm3 Baso # (Auto) (0.01-0.08) K/mm3 Manual Slide Review PT 11.4 (9.7-12.0) SECONDS INR 1.07 APTT 31.7 H (21.7-31.4) SECONDS D-Dimer, Quantitative 0.79 H (0.19-0.50) mg/L Sodium 139 (136-145) mEq/L Potassium 3.6 D (3.5-5.1) mEq/L Chloride 104 (98-107) mEq/L Carbon Dioxide 25 (21-32) mEq/L Anion Gap 13.6 (5-15) BUN 11 (7-18) mg/dL Creatinine 1.0 (0.55-1.02) mg/dL Est Cr Clr Drug Dosing 62.64 mL/min Estimated GFR (MDRD) > 60 (>60) mL/min BUN/Creatinine Ratio 11.0 L (14-18) Glucose 104 H (70-99) mg/dL POC Glucose (70-99) mg/dL Lactic Acid (0.4-2.0) mmol/L Calcium 7.2 L (8.5-10.1) mg/dL Ferritin 248 (8-252) ng/ml Total Bilirubin 0.4 (0.2-1.0) mg/dL AST 28 (15-37) U/L ALT 40 (14-59) U/L Alkaline Phosphatase 196 H (46-116) U/L Lactate Dehydrogenase 289 H (81-234) U/L C-Reactive Protein 7.0 H* (<1.0) mg/dL Total Protein 6.2 L (6.4-8.2) g/dl Albumin 2.7 L (3.4-5.0) g/dl Globulin 3.5 gm/dL Albumin/Globulin Ratio 0.8 L (1-2) // Range/Units 09:50 WBC (3.98-10.04) K/mm3 RBC (3.98-5.22) M/mm3 Hgb (11.2-15.7) gm/dl Hct (34.1-44.9) % MCV (79.4-94.8) fl MCH (25.6-32.2) pg MCHC (32.2-35.5) g/dl RDW Std Deviation (36.4-46.3) fL Plt Count (182-369) K/mm3 MPV (9.4-12.3) fl Neut % (Auto) (34.0-71.1) % Lymph % (Auto) (19.3-51.7) % Roosevelt % (Auto) (4.7-12.5) % Eos % (Auto) (0.7-5.8) Baso % (Auto) (0.1-1.2) % Neut # (Auto) (1.56-6.13) K/mm3 Lymph # (Auto) (1.18-3.74) K/mm3 Roosevelt # (Auto) (0.24-0.36) K/mm3 Eos # (Auto) (0.04-0.36) K/mm3 Baso # (Auto) (0.01-0.08) K/mm3 Manual Slide Review PT (9.7-12.0) SECONDS INR APTT (21.7-31.4) SECONDS D-Dimer, Quantitative (0.19-0.50) mg/L Sodium (136-145) mEq/L Potassium (3.5-5.1) mEq/L Chloride (98-107) mEq/L Carbon Dioxide (21-32) mEq/L Anion Gap (5-15) BUN (7-18) mg/dL Creatinine (0.55-1.02) mg/dL Est Cr Clr Drug Dosing mL/min Estimated GFR (MDRD) (>60) mL/min BUN/Creatinine Ratio (14-18) Glucose (70-99) mg/dL POC Glucose 213 H (70-99) mg/dL Lactic Acid (0.4-2.0) mmol/L Calcium (8.5-10.1) mg/dL Ferritin (8-252) ng/ml Total Bilirubin (0.2-1.0) mg/dL AST (15-37) U/L ALT (14-59) U/L Alkaline Phosphatase (46-116) U/L Lactate Dehydrogenase (81-234) U/L C-Reactive Protein (<1.0) mg/dL Total Protein (6.4-8.2) g/dl Albumin (3.4-5.0) g/dl Globulin gm/dL Albumin/Globulin Ratio (1-2) Meds: Medications Generic Name Dose Route Start Last Admin Trade Name Freq PRN Reason Stop Dose Admin Sodium Chloride 1,000 mls @ 1,000 mls/hr 04/06/21 03:45 04/06/21 04:07 Normal Saline IV 250 mls/hr .BOLUS KRISH Administration Sodium Chloride 10 ml 04/06/21 03:33 04/06/21 04:08 Sodium Chloride 0.9% 10 Ml Syringe FLUSH 10 ml ASDIRECTED PRN Administration Keep Vein Open Discontinued Medications Generic Name Dose Route Start Last Admin Trade Name Freq PRN Reason Stop Dose Admin Methylprednisolone Sodium Succinate 125 mg 04/06/21 03:34 04/06/21 04:07 Methylprednisolone Sodium Succinate 125 Mg/2 Ml Sdv IVPUSH 04/06/21 03:35 125 mg ONETIME ONE Administration Ondansetron HCl 4 mg 04/06/21 03:33 04/06/21 04:07 Ondansetron 4 Mg/2 Ml Sdv IVPUSH 04/06/21 03:34 4 mg ONETIME ONE Administration - Re-Assessments/Exams Free Text/Narrative Re-Assessment/Exam: 04/06/21 10:40. I have assumed care from Dr Randall after change of shift. I agree with his hx and exam as documented. She has had the 1 full liter of fluid, running a further NS at 150/hr. [facility] transfer has called back, it sounds like [facility] now has a bed opening up. Waiting to speak to [facility] 04/06/21 11:05 Dr Randhawa, Hospitalist [facility] has accepted patient in transfer. We will send her fixed wing. Vitals have remained stable. Departure - Departure Time of Disposition: 10:56 Condition: Fair Sepsis Event Note (ED) - Focused Exam Vital Signs: Vital Signs Temp Pulse Resp BP Pulse Ox 04/06/21 11:18 89 18 95 04/06/21 03:19 97.9 F 112 H 32 H 171/80 H 94 L
[2021-04-06] MEDS ORDERED: Sodium Chloride 0.9% 1,000 ML IV SCH (03:45)
--- NOTE | 2021-04-06 06:59 | CR ---
Chest: Portable view of the chest was obtained. Comparison: Prior chest x-ray of 04/04/21. Patchy areas of increased density are suggested within both sides of the chest. These findings are an interval change from previous exam. Lungs otherwise are clear. Heart size and mediastinum are within normal limits for portable technique. Bony structure shows nothing acute. Surgical clips are seen from prior cholecystectomy. Impression: 1. Patchy areas of increased density within both sides of the chest. Findings are highly suspicious for COVID pneumonia. Please correlate with patient laboratory test. 2. No other acute abnormality is appreciated. Diagnostic code #3
[2021-04-06 11:19] VITALS: PULSE 89
== END 2021-04-06 13:13 | disposition home or self-care (01) ==
LOC: JD.ED 03:03
DX: U07.1 COVID-19 (principal); J12.82 Pneumonia due to coronavirus disease 2019; E27.1 Primary adrenocortical insufficiency; R11.2 Nausea with vomiting, unspecified; E11.9 Type 2 diabetes mellitus without complications; E03.9 Hypothyroidism, unspecified; E66.9 Obesity, unspecified; Z68.39 Body mass index [BMI] 39.0-39.9, adult; Z79.4 Long term (current) use of insulin; Z79.82 Long term (current) use of aspirin; Z79.899 Other long term (current) drug therapy
CPT/HCPCS: 36415; 71045; 80053; 82728; 82947; 83605; 83615; 85025; 85379; 85610; 85730; 86140; 96374; 96375; 99285; J2405; J2930; J7030

== ENCOUNTER 2023-12-02 03:58 | Inpatient (IN) | payer BC ==
[2023-12-02] MEDS: Ondansetron 4 MG/2 ML SDV IVPUSH ONE (04:28)
[2023-12-02] MEDS: Hydrocortisone Sodium Succinate 100 MG/2 ML SDV IV ONE (04:28)
[2023-12-02] MEDS: Sodium Chloride 0.9% 1,000 ML IV SCH (04:29)
[2023-12-02] MEDS: Sodium Chloride 0.9% 10 ML Syringe FLUSH PRN (04:29)
[2023-12-02 05:51] LABS: A/G RATIO 1.2 (1-2); ALBUMIN 3.9 g/dl (3.4-5.0); ANION GAP 10.5 (5-15); BILIRUBIN TOTAL 1.3 mg/dL (0.2-1.0); CALCIUM 8.9 mg/dL (8.5-10.1); CREATININE 1.2 mg/dL (0.55-1.02); EST CRCL DRUG DOSING (CG) 54.84 mL/min; POTASSIUM,K 3.5 mEq/L (3.5-5.1); PROTEIN TOTAL,TP 7.2 g/dl (6.4-8.2)
[2023-12-02 05:53] LABS: APPEARANCE,URINE CLEAR (Clear); BILIRUBIN,URINE NEGATIVE (Negative); COLOR,URINE YELLOW (Yellow); GLUCOSE,URINE NEGATIVE (Negative); KETONES,URINE NEGATIVE (Negative); LEUKOCYTE ESTERASE,URINE NEGATIVE (Negative); NITRITE,URINE NEGATIVE (Negative); OCCULT BLOOD,URINE NEGATIVE (Negative); PH,URINE 8.5 (5.0-8.0); PROTEIN,URINE NEGATIVE (Negative); UROBILINOGEN,URINE 0.2 (0.2-1.0)
[2023-12-02 05:56] LABS: BASOPHILS ABSOLUTE AUTO 0.1 K/mm3 (0.0-0.2); BASOPHILS PERCENT AUTO 0.5 % (0.0-1.0); EOSINOPHILS ABSOLUTE AUTO 0.3 K/mm3 (0.0-0.4); HEMATOCRIT 49.5 % (37.0-47.0); HEMOGLOBIN 16.7 gm/dl (12.0-16.0); IMMATURE GRAN ABSOLUTE AUTO 0.03 K/mm3 (0.00-0.05); IMMATURE GRAN PERCENT AUTO 0.3 % (0.0-0.4); LYMPHOCYTES ABSOLUTE AUTO 1.6 K/mm3 (1.0-4.8); MEAN CORPUSCULAR HEMOGLOBIN 28.3 pg (28.0-32.0); MEAN CORPUSCULAR HGB CONC 33.7 g/dl (32.0-36.0); MEAN CORPUSCULAR VOLUME 83.9 fl (83.0-99.0); MEAN PLATELET VOLUME 11.4 fl (9.4-12.3); MONOCYTES ABSOLUTE AUTO 0.5 K/mm3 (0.0-0.8); MONOCYTES PERCENT AUTO 5.8 % (0.0-8.0); NEUTROPHILS ABSOLUTE AUTO 6.7 K/mm3 (1.8-7.7); NEUTROPHILS PERCENT AUTO 73.4 % (41.0-71.0); PLATELET COUNT,PLT 206 K/mm3 (150-400); WHITE BLOOD CELL COUNT,WBC 9.15 K/mm3 (3.9-11.3)
[2023-12-02] MEDS ORDERED: Ondansetron 4 MG/2 ML SDV IV PRN (10:09)
[2023-12-02] MEDS ORDERED: Acetaminophen 325 MG Tab PO PRN (10:09)
[2023-12-02] MEDS: Hydrocortisone Sodium Succinate 100 MG/2 ML SDV IV SCH (10:29)
[2023-12-02] MEDS: Enoxaparin 40 MG/0.4 ML Syringe SUBCUT SCH (10:33)
[2023-12-02] MEDS: Sodium Chloride 0.9% 1,000 ML IV ONE (13:59)
[2023-12-02] MEDS: Insulin Lispro 100 Unit/ML 3 ML KwikPen SUBCUT SCH (21:05)
[2023-12-03 05:44] LABS: ALBUMIN 2.9 g/dl (3.4-5.0); ANION GAP 10.1 (5-15); BILIRUBIN TOTAL 0.7 mg/dL (0.2-1.0); BUN/CREATININE RATIO 13.8 (14-18); CALCIUM 8.3 mg/dL (8.5-10.1); CREATININE 0.8 mg/dL (0.55-1.02); EST CRCL DRUG DOSING (CG) 75.88 mL/min; POTASSIUM,K 4.1 mEq/L (3.5-5.1); PROTEIN TOTAL,TP 5.8 g/dl (6.4-8.2)
[2023-12-03 06:03] LABS: HEMATOCRIT 40.7 % (37.0-47.0); HEMOGLOBIN 13.8 gm/dl (12.0-16.0); MEAN CORPUSCULAR HEMOGLOBIN 28.2 pg (28.0-32.0); MEAN CORPUSCULAR HGB CONC 33.9 g/dl (32.0-36.0); MEAN CORPUSCULAR VOLUME 83.1 fl (83.0-99.0); MEAN PLATELET VOLUME 11.6 fl (9.4-12.3); PLATELET COUNT,PLT 165 K/mm3 (150-400); WHITE BLOOD CELL COUNT,WBC 6.68 K/mm3 (3.9-11.3)
[2023-12-03] MEDS: Levothyroxine 125 MCG Tab PO SCH (06:33)
[2023-12-03] MEDS: Levothyroxine 25 MCG Tab PO SCH (06:33)
[2023-12-03] MEDS: Insulin Glargine,Human Rec. Analog 100 Units/ML 3 ML Pen SUBCUT SCH (08:12)
[2023-12-03] MEDS: Hydrocortisone Sodium Succinate 100 MG/2 ML SDV IVPUSH SCH (09:41)
[2023-12-03] MEDS: Insulin Glargine,Human Rec. Analog 100 Units/ML 3 ML Pen SUBCUT ONE (11:27)
[2023-12-04 04:45] LABS: HEMATOCRIT 40.2 % (37.0-47.0); HEMOGLOBIN 13.5 gm/dl (12.0-16.0); MEAN CORPUSCULAR HEMOGLOBIN 28.4 pg (28.0-32.0); MEAN CORPUSCULAR HGB CONC 33.6 g/dl (32.0-36.0); MEAN CORPUSCULAR VOLUME 84.5 fl (83.0-99.0); MEAN PLATELET VOLUME 11.3 fl (9.4-12.3); PLATELET COUNT,PLT 175 K/mm3 (150-400); RED BLOOD CELL COUNT 4.76 M/mm3 (4.10-5.30)
[2023-12-04 05:33] LABS: ALBUMIN 2.8 g/dl (3.4-5.0); ANION GAP 7.7 (5-15); BILIRUBIN TOTAL 0.3 mg/dL (0.2-1.0); BUN/CREATININE RATIO 16.7 (14-18); CALCIUM 8.5 mg/dL (8.5-10.1); CREATININE 0.9 mg/dL (0.55-1.02); EST CRCL DRUG DOSING (CG) 67.45 mL/min; POTASSIUM,K 3.7 mEq/L (3.5-5.1); PROTEIN TOTAL,TP 5.6 g/dl (6.4-8.2)
[2023-12-04] MEDS: Hydrocortisone 10 MG Tab PO SCH (08:26)
[2023-12-04] MEDS: Fludrocortisone 0.1 MG Tab PO SCH (08:27)
[2023-12-04] MEDS: Hydrocortisone Sodium Succinate 100 MG/2 ML SDV IVPUSH ONE (08:27)
[2023-12-04 12:04] VITALS: BP 151/68; PULSE 83
== END 2023-12-04 15:54 | disposition home or self-care (01) | DRG 424 ==
LOC: JD.ED 03:58 → JD.ICU 10:01 → JD.MS 12-04 05:29
PROVIDERS: ADMIT Internal Medicine; ATTEND Internal Medicine
DX: E27.2 Addisonian crisis (principal); A08.4 Viral intestinal infection, unspecified; E27.1 Primary adrenocortical insufficiency; H54.7 Unspecified visual loss; E11.9 Type 2 diabetes mellitus without complications; E66.9 Obesity, unspecified; I10 Essential (primary) hypertension; E03.9 Hypothyroidism, unspecified; I95.9 Hypotension, unspecified; R79.89 Other specified abnormal findings of blood chemistry; Z79.899 Other long term (current) drug therapy; Z68.26 Body mass index [BMI] 26.0-26.9, adult; Z86.16 Personal history of COVID-19; Z90.49 Acquired absence of other specified parts of digestive tract
CPT/HCPCS: 36415; 76705; 76705-26; 80053; 81003; 81025; 82024; 82533; 82947; 83690; 85025; 85027; 96361; 96374; 96375; 99285; 99285-25; A9270-GY; J1650; J1720; J1815; J1815-GY; J2405; J3490; J7030